=== PATIENT | female | born 1945 | race Caucasian/White ===

== ENCOUNTER 2017-10-23 22:13 | Inpatient (IN) | payer OTHER ==
[~2017-10-23] VITALS: Ht 170.2 cm; Wt 69.9 kg
[2017-10-23 22:55] LABS: Basophils # (auto) 0 uL; Eosinophils # (auto) 0 uL; Eosinophils % (auto) 0.1 % (0.0-7.0); Lymphocytes # (auto) 0.9 uL; Monocytes # (auto) 0.3 uL; Neutrophils # (auto) 11.3 uL; Red Cell Distribution Width 15.8 % (11.8-14.3); White Blood Cell 12.6 10^3/uL (4.4-10.8)
[2017-10-23 22:57] LABS: Basophils % (auto) 0.3 % (0.0-2.0); Hematocrit 47.5 % (36.0-46.0); Hemoglobin 15.4 g/dL (12.2-16.2); Mean Corpuscular Hemoglobin 26.6 pg (28.0-32.0); Mean Corpuscular Hgb Conc. 32.5 g/dL (32.0-36.0); Mean Corpuscular Volume 81.8 fL (80.0-100.0); Monocytes % (auto) 2.5 % (0.0-12.0); Neutrophils % (auto) 90.1 % (37.0-80.0); Platelet Count (auto) 336 10^3/uL (140-450); Red Blood Cells 5.81 10^6/uL (4.0-5.20)
[2017-10-23 23:28] LABS: Albumin 3.9 g/dL (3.4-5.0); BUN/Creatinine Ratio 13.5; Bilirubin, Total 0.3 mg/dL (0.2-1.0); Calcium 9.4 mg/dL (8.5-10.1); Potassium 4.1 mmol/L (3.5-5.1); Total Protein 7.3 g/dL (6.4-8.2)
[2017-10-24] MEDS ORDERED: NITROGLYCERIN 0.4 MG SL TAB SL ONE (00:15)
[2017-10-24] MEDS ORDERED: MORPHINE SULFATE 8mg/ml INJ SDV IV ONE ×2 (00:15→02:30)
[2017-10-24] MEDS ORDERED: ASPirin-EC 325mg tab PO ONE (00:15)
[2017-10-24] MEDS ORDERED: MORPHINE SULFATE 4 MG/ML SYR/VIAL ONE ×2 (00:17→02:23)
[2017-10-24] MEDS ORDERED: ONDANSETRON HCL 4 MG/2 ML VIAL ONE (00:19)
[2017-10-24] MEDS ORDERED: MORPHINE SULFATE 8mg/ml INJ SDV IV PRN ×2 (03:30)
[2017-10-24] MEDS ORDERED: HYDROcodone-ACET 5/325MG TAB PO PRN (03:30)
[2017-10-24] MEDS ORDERED: NITROGLYCERIN 0.4 MG SL TAB SL PRN (03:30)
[2017-10-24] MEDS ORDERED: LACTULOSE 20Gm/30ML SOLN PO PRN (03:30)
[2017-10-24] MEDS ORDERED: ONDANSETRON HCL 4 MG/2 ML VIAL IV PRN (03:30)
[2017-10-24] MEDS ORDERED: ACETAMINOPHEN 500 MG TAB PO PRN (03:30)
[2017-10-24] MEDS ORDERED: ENOXAPARIN SOD 80 MG/0.8ML SYRINGE SC ONE (05:00)
[2017-10-24 06:35] VITALS: BP 127/87
[2017-10-24 08:00] VITALS: BP 131/81
[2017-10-24] MEDS: MORPHINE SULFATE 4 MG/ML SYR/VIAL IV PRN ×2 (09:02→12:42)
[2017-10-24] MEDS: ASPirin 81 mg TAB PO SCH (09:56)
[2017-10-24] MEDS: METOPROLOL TARTRATE 25 MG TAB PO SCH ×2 (09:56→20:59)
[2017-10-24 12:00] VITALS: BP 134/83
[2017-10-24] MEDS: methylPREDNISolone SOD SUCC 125 MG/2 ML VL IV SCH ×2 (12:00→21:01)
[2017-10-24] MEDS ORDERED: cefTRIAXone 1GM/10ml IVPUSH 10 ML IV ONE (12:00)
[2017-10-24 12:09] LABS: Cholesterol 177 mg/dL (< 200); HDL Cholesterol 58 mg/dL (40-59); LDL Cholesterol 106 mg/dL (< 100); Triglycerides 72 mg/dL (< 150)
[2017-10-24] MEDS ORDERED: IOHEXOL 350 MG/ML 100ML IJ ONE ×2 (12:44→14:40)
[2017-10-24] MEDS ORDERED: LIDOCAINE 2%HCL (LOCAL ANESTH.) INJ 20ML MDV ONE (12:44)
[2017-10-24] MEDS: IPRATROPIUM BROM 0.5 MG/2.5ML INH SOL NEB SCH ×3 (13:06→22:41)
[2017-10-24] MEDS: ALBUTEROL SULF 2.5 MG/0.5ML(0.5%) NEB SOLN NEB SCH ×3 (13:06→22:41)
[2017-10-24 13:39] VITALS: BP 134/83
[2017-10-24] MEDS ORDERED: ANGIOMAX 250 MG VIAL IV ONE (14:29)
[2017-10-24] MEDS ORDERED: SODIUM CHL 0.9% 50 ML ONE ×2 (14:30→14:45)
[2017-10-24] MEDS ORDERED: fentaNYL CITRATE 100 MCG/2 ML VL ONE (14:30)
[2017-10-24] MEDS ORDERED: MIDAZOLAM HCL 1MG/1ML-2 ML VIAL ONE (14:30)
[2017-10-24] MEDS ORDERED: PRASUGREL HCL 10 MG TAB ONE (14:50)
[2017-10-24 15:50] VITALS: BP 119/73
[2017-10-24] MEDS ORDERED: ENOXAPARIN SOD 80 MG/0.8ML SYRINGE SC SCH (18:00)
[2017-10-24 19:43] VITALS: BP 116/73
[2017-10-24] MEDS ORDERED: ATORVASTATIN 20 MG TAB PO SCH (22:00)
[2017-10-24] MEDS: BUDESONIDE (INHALATION) 0.5 MG/2 ML NEB NEB SCH (22:41)
[2017-10-25] VITALS (8 sets, daily range): BP systolic 82–100; BP diastolic 54–68
[2017-10-25] MEDS: IPRATROPIUM BROM 0.5 MG/2.5ML INH SOL NEB SCH ×4 (02:59→14:32)
[2017-10-25] MEDS: ALBUTEROL SULF 2.5 MG/0.5ML(0.5%) NEB SOLN NEB SCH ×4 (02:59→14:32)
[2017-10-25] MEDS ORDERED: SODIUM CHLORIDE 0.9% 1,000 ML IV ONE (09:00)
[2017-10-25] MEDS ORDERED: SODIUM CHLORIDE 0.9% 1,000 ML IV SCH (09:00)
[2017-10-25] MEDS ORDERED: cefTRIAXone 1GM/10ml IVPUSH 10 ML IV SCH (09:00)
[2017-10-25 09:26] LABS: Basophils # (auto) 0 uL; Basophils % (auto) 0.1 % (0.0-2.0); Eosinophils # (auto) 0 uL; Hematocrit 46.2 % (36.0-46.0); Hemoglobin 14.9 g/dL (12.2-16.2); Lymphocytes # (auto) 0.7 uL; Lymphocytes % (auto) 3.7 % (10.0-50.0); Mean Corpuscular Hemoglobin 26.2 pg (28.0-32.0); Mean Corpuscular Hgb Conc. 32.3 g/dL (32.0-36.0); Mean Corpuscular Volume 80.9 fL (80.0-100.0); Monocytes # (auto) 0.4 uL; Neutrophils # (auto) 16.8 uL; Neutrophils % (auto) 94.2 % (37.0-80.0); Nucleated Red Blood Cells % 0.1 %; Platelet Count (auto) 357 10^3/uL (140-450); Red Blood Cells 5.71 10^6/uL (4.0-5.20); Red Cell Distribution Width 15.2 % (11.8-14.3); White Blood Cell 17.9 10^3/uL (4.4-10.8)
[2017-10-25 09:51] LABS: Albumin 3.3 g/dL (3.4-5.0); BUN/Creatinine Ratio 20.1; Bilirubin, Total 0.4 mg/dL (0.2-1.0); Calcium 9.5 mg/dL (8.5-10.1); Total Protein 6.7 g/dL (6.4-8.2)
[2017-10-25] MEDS: methylPREDNISolone SOD SUCC 125 MG/2 ML VL IV SCH (09:56)
[2017-10-25] MEDS: ASPirin 81 mg TAB PO SCH (09:56)
[2017-10-25] MEDS ORDERED: PRASUGREL HCL 10 MG TAB PO SCH (10:00)
[2017-10-25] MEDS: BUDESONIDE (INHALATION) 0.5 MG/2 ML NEB NEB SCH (10:24)
== END 2017-10-25 15:37 | disposition home or self-care (01) | DRG 246 ==
LOC: EDBD 22:13 → ER 22:23 → TELE 22:24 → DOU IN ICU 10-24 06:07
PROVIDERS: ADMIT Nurse Practitioner Family; ATTEND Nurse Practitioner Family
PROC: 027034Z Dilation of Coronary Artery, One Artery with Drug-eluting Intraluminal Device, Percutaneous Approach (ICD-10-PCS; principal; 2017-10-24)
PROC: 4A023N7 Measurement of Cardiac Sampling and Pressure, Left Heart, Percutaneous Approach (ICD-10-PCS; 2017-10-24)
PROC: B2111ZZ Fluoroscopy of Multiple Coronary Arteries using Low Osmolar Contrast (ICD-10-PCS; 2017-10-24)
PROC: B2151ZZ Fluoroscopy of Left Heart using Low Osmolar Contrast (ICD-10-PCS; 2017-10-24)
DX: I21.4 Non-ST elevation (NSTEMI) myocardial infarction (principal); N17.0 Acute kidney failure with tubular necrosis; J44.0 Chronic obstructive pulmonary disease with (acute) lower respiratory infection; J44.1 Chronic obstructive pulmonary disease with (acute) exacerbation; I11.9 Hypertensive heart disease without heart failure; J20.9 Acute bronchitis, unspecified; E03.9 Hypothyroidism, unspecified; E78.00 Pure hypercholesterolemia, unspecified; F17.200 Nicotine dependence, unspecified, uncomplicated; Z95.5 Presence of coronary angioplasty implant and graft; Z83.49 Family history of other endocrine, nutritional and metabolic diseases; Z88.1 Allergy status to other antibiotic agents; Z88.8 Allergy status to other drugs, medicaments and biological substances; Z71.6 Tobacco abuse counseling; Z79.899 Other long term (current) drug therapy
CPT/HCPCS: 36415; 71045; 80053; 80061; 82550; 84443; 84484; 85025; 85379; 85652; 87081; 92928; 93005; 93458; 94640; 96372; 96374; 96375; 97163; 99152; C1874; J2250; J2405

== ENCOUNTER 2019-12-31 05:35 | Inpatient (IN) | payer OTHER ==
[~2019-12-31] VITALS: Ht 167.6 cm; Wt 80.0 kg
[2019-12-31 07:54] LABS: Basophils # (auto) 0.1 10 ^3/uL (0-0.2); Basophils % (auto) 0.9 % (0.0-2.0); Eosinophils # (auto) 0.2 10 ^3/uL (0-0.8); Monocytes # (auto) 0.6 10 ^3/uL (0-1.3); Neutrophils # (auto) 8.3 10 ^3/uL (1.6-8.6); White Blood Cell 10.3 10^3/uL (4.4-10.8)
[2019-12-31 07:56] LABS: Eosinophils % (auto) 1.7 % (0.0-7.0); Hematocrit 55.5 % (36.0-46.0); Hemoglobin 18.3 g/dL (12.2-16.2); Lymphocytes # (auto) 1.1 10 ^3/uL (0.4-5.4); Lymphocytes % (auto) 10.5 % (10.0-50.0); Mean Corpuscular Hemoglobin 27.7 pg (28.0-32.0); Mean Corpuscular Hgb Conc. 32.9 g/dL (32.0-36.0); Mean Corpuscular Volume 84.4 fL (80.0-100.0); Monocytes % (auto) 6.1 % (0.0-12.0); Neutrophils % (auto) 80.8 % (37.0-80.0); Platelet Count (auto) 335 10^3/uL (140-450); Red Blood Cells 6.58 10^6/uL (4.0-5.20); Red Cell Distribution Width 17.1 % (11.8-14.3)
[2019-12-31 08:12] LABS: Albumin 3.5 g/dL (3.4-5.0); BUN/Creatinine Ratio 16.3; Calcium 8.6 mg/dL (8.5-10.1)
[2019-12-31 08:17] LABS: Bilirubin, Total 0.5 mg/dL (0.2-1.0); Total Protein 7.1 g/dL (6.4-8.2)
[2019-12-31 12:28] LABS: INR 1.01 (0.9-1.15); Partial Thromboplastin Time 28.5 sec (23.0-31.2)
[2019-12-31] MEDS ORDERED: ZINC SULFATE 220mg CAP or TAB PO ONE (13:15)
[2019-12-31] MEDS ORDERED: cefTRIAXone 1GM/50ML D5W 50 ML IV ONE (13:15)
[2019-12-31] MEDS ORDERED: DOXYCYCLINE 100MG/250ML 250 ML IV ONE (13:15)
[2019-12-31] MEDS ORDERED: ASCORBIC ACID 500 MG TAB PO ONE (13:15)
[2019-12-31] MEDS ORDERED: NITROGLYCERIN 0.4 MG SL TAB SL PRN ×2 (15:15→16:15)
[2019-12-31] MEDS ORDERED: MORPHINE SULF INJ 2 MG/ML SYRINGE 1ML IV PRN ×3 (15:15→16:15)
[2019-12-31] MEDS ORDERED: SODIUM CHLORIDE 0.9% 1,000 ML IV SCH (15:51)
[2019-12-31] MEDS ORDERED: TEMAZEPAM 15 MG CAP PO PRN (16:00)
[2019-12-31] MEDS ORDERED: traMADol HCL 50 MG TAB PO PRN (16:00)
[2019-12-31] MEDS ORDERED: ONDANSETRON HCL 4 MG/2 ML VIAL IV PRN (16:00)
[2019-12-31] MEDS ORDERED: ACETAMINOPHEN 500 MG TAB PO PRN ×2 (16:00)
[2019-12-31] MEDS ORDERED: ALBUTEROL SULF 2.5 MG/0.5ML(0.5%) NEB SOLN NEB PRN (16:00)
[2019-12-31] MEDS ORDERED: LEVOTHYROXINE SODIUM 25 MCG TAB PO ONE (16:00)
[2019-12-31] MEDS: levoFLOXacin 500MG 100 ML IV SCH (17:00)
[2019-12-31] MEDS: IPRATROPIUM BROM 0.5 MG/2.5ML INH SOL NEB SCH ×2 (18:00→23:58)
[2019-12-31] MEDS ORDERED: ALBUTEROL SULF 2.5 MG/0.5ML(0.5%) NEB SOLN NEB SCH (18:00)
[2019-12-31 18:53] VITALS: BP 148/88
--- NOTE | 2019-12-31 19:01 | NUR ---
PATIENT ARRIVED TO UNIT ON 2LNC. NO S/S OF DISTRESS NOTED AT THIS TIME. PATIENT ON TELE MONITOR 18 RUNNING SINUS TACHYCARDIA.
--- NOTE | 2019-12-31 19:25 | NUR ---
endorsed care to SARAH estrada.
--- NOTE | 2019-12-31 19:25 | NUR ---
Telemetry admit from ER HANDLER,RONN admitted to Telemetry unit after SBAR received. Patient oriented to EMILY POWELL RN primary RN, unit, room, bed, and unit policies regarding patient care and visiting hours. Patient now on continuous telemetry monitoring, tele box # [id number] and telemetry reading on arrival to unit is SR 93BPM. Patient placed on bedside oxygen, weighed by bedscale and encouraged to call if they need something. All questions and concerns addressed, patient verbalized understanding. Addendum: 12/31/19 at 2054 by EMILY POWELL RN RN INCORRECT TELE NUMBER. TELE NUMBER [id number]
--- NOTE | 2019-12-31 19:25 | NUR ---
Telemetry admit from ER HANDLER,RONN admitted to Telemetry unit after SBAR received. Patient oriented to EMILY POWELL, RN primary RN, unit, room, bed, and unit policies regarding patient care and visiting hours. Patient now on continuous telemetry monitoring, tele box # [id number] telemetry reading on arrival to unit is SR 93BPM. Patient placed on bedside oxygen, weighed by bedscale and encouraged to call if they need something. All questions and concerns addressed, patient verbalized understanding.
[2019-12-31 20:00] VITALS: BP 148/100
[2019-12-31] MEDS ORDERED: [UNRECOGNIZED DRUG - CODE] PO (20:52)
[2019-12-31] MEDS ORDERED: THYR60TA PO (20:52)
[2019-12-31] MEDS: ATORVASTATIN 20 MG TAB PO SCH (21:25)
[2019-12-31] MEDS: METOPROLOL TARTRATE 25 MG TAB PO SCH (21:27)
--- NOTE | 2019-12-31 21:57 | NUR ---
patient reports sob and requesting breathing treatment. oxygen 95% on 3 l. RR 21 bilateral chest rise and fall, 93bpm, bp 150/101. RT notified.
[2019-12-31 22:00] VITALS: BP 156/94
[2019-12-31] MEDS: ALBUTEROL SULF HFA 90MCG INH 200DOSE IN SCH (22:00)
[2019-12-31] MEDS: BUDESONIDE (INHALATION) 180 MCG IH IN SCH (22:00)
[2019-12-31] MEDS ORDERED: IPRATROPIUM BROM 0.5 MG/2.5ML INH SOL ONE (22:16)
[2019-12-31] MEDS ORDERED: ALBUTEROL SULF 2.5 MG/0.5ML(0.5%) NEB SOLN ONE (22:16)
--- NOTE | 2019-12-31 22:29 | NUR ---
RT with patient. per RT breathing treatment initiated and unable to enter room until 5200
[2019-12-31 23:51] LABS: CRP High Sensitivity 0.09 mg/dL (< 0.3)
[2020-01-01] MEDS: ALBUTEROL SULF 2.5 MG/0.5ML(0.5%) NEB SOLN NEB SCH ×5 (04:49→23:57)
[2020-01-01] MEDS: IPRATROPIUM BROM 0.5 MG/2.5ML INH SOL NEB SCH ×4 (04:49→23:57)
[2020-01-01 05:00] VITALS: BP 139/85
[2020-01-01] MEDS: ALBUTEROL SULF HFA 90MCG INH 200DOSE IN SCH (06:00)
[2020-01-01] MEDS: BUDESONIDE (INHALATION) 180 MCG IH IN SCH (06:09)
[2020-01-01] MEDS: THYROID 60 MG TAB PO SCH (06:12)
--- NOTE | 2020-01-01 06:12 | NUR ---
Respiratory note: At bedside for initial assessment. HR 80, RR 20, SPO2 94% on 2lpm nasal cannula. Breath sounds dim t/o. Medneb tx was already administered by [facility] shift RT at 0449. Pt appears to be resting in bed comfortably with no s/s of distress. Inhaler txs held pending testing results for COVID-19. Will continue to monitor.
[2020-01-01] MEDS ORDERED: THYROID 60 MG TAB PO SCH (07:00)
[2020-01-01] MEDS ORDERED: LEVOTHYROXINE SODIUM 25 MCG TAB PO SCH (07:00)
--- NOTE | 2020-01-01 07:02 | NUR ---
Report given to dayshift RN patient denies sob distress or pain.
--- NOTE | 2020-01-01 07:20 | NUR ---
ABG drawn as ordered, results to follow
[2020-01-01 07:39] LABS: Albumin 3.6 g/dL (3.4-5.0); Potassium 4.1 mmol/L (3.5-5.1)
[2020-01-01 07:43] LABS: BUN/Creatinine Ratio 11.7; Bilirubin, Total 0.8 mg/dL (0.2-1.0); Total Protein 6.9 g/dL (6.4-8.2)
[2020-01-01 09:00] VITALS: BP 139/79
[2020-01-01] MEDS: levoFLOXacin 500MG 100 ML IV SCH (09:20)
[2020-01-01] MEDS: ASPirin 81 mg TAB PO SCH (09:20)
[2020-01-01] MEDS: NITROGLYCERIN 0.2MG/HR TOPICAL PATCH TD SCH (09:21)
[2020-01-01] MEDS: ENOXAPARIN SOD 40 MG/0.4 ML SYRINGE SC SCH (09:21)
[2020-01-01] MEDS: METOPROLOL TARTRATE 25 MG TAB PO SCH ×2 (09:21→21:59)
[2020-01-01] MEDS ORDERED: ZINC SULFATE 220mg CAP or TAB PO SCH (10:00)
[2020-01-01] MEDS ORDERED: ASCORBIC ACID 1,000 MG TAB PO SCH (10:00)
[2020-01-01] MEDS ORDERED: CHOLECALCIFEROL (VITD3) 2,000 UNIT CAP PO SCH (10:00)
[2020-01-01] MEDS ORDERED: DexAMETHasone SOD PHOS 10MG/1ML VIAL INJ IV SCH (10:00)
[2020-01-01 13:00] VITALS: BP 124/83
[2020-01-01] MEDS ORDERED: SODIUM CHLORIDE 0.9 % NEB SOLN 3ML NEB ONE (13:50)
--- NOTE | 2020-01-01 15:21 | NUR ---
RECEIVED PATIENT TO THE FLOOR. PATIENT ALERT AND ORIENTED. BED LOCKED IN LOWEST POSITION WITH TWO SIDE RAILS UP AND CALL LIGHT IN REACH. INSTRUCTED THE PATIENT ON THE PLAN OF CARE AND TO CALL IF ANYTHING IS NEEDED. WILL CONTINUE TO MONITOR.
[2020-01-01] MEDS ORDERED: ACETAMINOPHEN 500 MG TAB PO PRN (15:30)
[2020-01-01 17:00] VITALS: BP 120/81
[2020-01-01] MEDS: ATORVASTATIN 20 MG TAB PO SCH (21:59)
[2020-01-01 22:00] VITALS: BP 119/73
[2020-01-02] MEDS: THYROID 60 MG TAB PO SCH (05:39)
[2020-01-02] MEDS: ALBUTEROL SULF 2.5 MG/0.5ML(0.5%) NEB SOLN NEB SCH ×4 (06:15→23:27)
[2020-01-02] MEDS: IPRATROPIUM BROM 0.5 MG/2.5ML INH SOL NEB SCH ×4 (06:15→23:27)
[2020-01-02 06:23] VITALS: BP 118/65
--- NOTE | 2020-01-02 07:25 | NUR ---
Opening Shift Note Assumed care of patient, awake and alert. No S/S of distress/SOB or pain. Updated on POC and instructed to call for assistance PRN, patient verbalized understanding. Bed locked in lowest position, side rails up x2, call light within reach. Will continue to monitor for changes Q1hr and PRN.
[2020-01-02] MEDS ORDERED: ADENOSINE 68 MG in GIVE UN-DILUTED 0 ML IV STA (08:26)
[2020-01-02 09:00] VITALS: BP 125/70
[2020-01-02] MEDS: NITROGLYCERIN 0.2MG/HR TOPICAL PATCH TD SCH (09:42)
[2020-01-02] MEDS: ENOXAPARIN SOD 40 MG/0.4 ML SYRINGE SC SCH (09:43)
[2020-01-02] MEDS: ASPirin 81 mg TAB PO SCH (09:44)
[2020-01-02] MEDS: METOPROLOL TARTRATE 25 MG TAB PO SCH ×2 (09:44→22:48)
[2020-01-02] MEDS: levoFLOXacin 500MG 100 ML IV SCH (09:45)
[2020-01-02 12:59] LABS: Urine Bacteria NONE SEEN /hpf (None Seen); Urine Blood Negative /uL (Negative); Urine Specific Gravity 1.009 (1.001-1.035); Urine WBC 1 /hpf (0 - 5)
[2020-01-02 13:00] VITALS: BP 120/84
[2020-01-02 17:00] VITALS: BP 125/81
--- NOTE | 2020-01-02 19:30 | NUR ---
Opening Shift Note Assumed care of patient, awake and alert. No S/S of distress/SOB or pain. Instructed on POC and to call for assist PRN, will continue to monitor for changes Q1hr and PRN.
[2020-01-02 22:00] VITALS: BP 123/74
[2020-01-02] MEDS: ATORVASTATIN 20 MG TAB PO SCH (22:47)
[2020-01-03 05:00] VITALS: BP 131/77
[2020-01-03] MEDS: ALBUTEROL SULF 2.5 MG/0.5ML(0.5%) NEB SOLN NEB SCH ×2 (06:18→12:12)
[2020-01-03] MEDS: IPRATROPIUM BROM 0.5 MG/2.5ML INH SOL NEB SCH ×2 (06:18→12:12)
[2020-01-03] MEDS: THYROID 60 MG TAB PO SCH (06:37)
--- NOTE | 2020-01-03 07:20 | NUR ---
Opening Shift Note Assumed care of patient, awake and alert. No S/S of distress/SOB or pain. Updated on POC and instructed to call for assistance PRN, patient verbalized understanding. Bed locked in lowest position, side rails up x2, call light within reach. Fall precautions in place. Will continue to monitor for changes Q1hr and PRN.
[2020-01-03 08:00] VITALS: BP 130/81
[2020-01-03] MEDS: ASPirin 81 mg TAB PO SCH (09:26)
[2020-01-03] MEDS: METOPROLOL TARTRATE 25 MG TAB PO SCH (09:27)
[2020-01-03] MEDS: levoFLOXacin 500MG 100 ML IV SCH (09:27)
[2020-01-03] MEDS: ENOXAPARIN SOD 40 MG/0.4 ML SYRINGE SC SCH (09:29)
[2020-01-03] MEDS: NITROGLYCERIN 0.2MG/HR TOPICAL PATCH TD SCH (09:29)
--- NOTE | 2020-01-03 10:16 | NUR ---
assessment Patient is a 74 year old female who is alert and oriented. Patients cognitive abilities are intact. Prior to admission patient lived home with family and functioned independently. Patient informed me she is able to care for her own ADLs. Per patient she will return home to her prior living arrangements post discharge and family will transport her home. Patient has oxygen, nebulizer, and a cane for home use. Per patient she has a cane, but does not need to use it. Patients PCP is Dr Agustin. Per patient she called 911 due to chest pain. Patient informed me she feels much better and wants to return home as soon as possible. I have offered patient various discharge options due to recent hospitalization such as private pay caregivers, home health, and placement. Patient informed me she has no needs and is adamant she will return home as planned. Patient has no post discharge needs identified. I informed patient she has a right to speak to a social services director regarding all care. I informed patient she has a right to participate in any and all discharge planning. Patient has a POA and advanced directive. Patient verbalized understanding and agreed to discharge plan home. Addendum: 01/03/20 at 1427 by Dari COLE Amended: Links added.
[2020-01-03 11:33] VITALS: BP 130/81
[2020-01-03] MEDS ORDERED: OPTISON 3ml Vial for INJ IV ONE (11:52)
[2020-01-03 12:00] VITALS: BP 125/75
--- NOTE | 2020-01-03 13:27 | NUR ---
DISCHARGE HOME Discharge instructions given as ordered. Encourage to follow up with PMD as instructed. All questions and concerns addressed. Patient verbalized understanding. Medication reconciliation form completed and copy given to patient. IV removed with catheter intact, pressure dressing applied. Telemetry unit returned to ICU. Patient taken to taxi via wheelchair with all personal belongings, accompanied by staff. No distress noted at time of departure.
== END 2020-01-03 13:27 | disposition home or self-care (01) | DRG 193 ==
LOC: EDBD 05:35 → ER 05:35 → TELE 05:36 → TELE-EAST 19:00 → TELE-CENTR 01-01 15:21
PROVIDERS: ADMIT Internal Medicine; ATTEND Internal Medicine
DX: J18.9 Pneumonia, unspecified organism (principal); N17.0 Acute kidney failure with tubular necrosis; I50.43 Acute on chronic combined systolic (congestive) and diastolic (congestive) heart failure; J44.0 Chronic obstructive pulmonary disease with (acute) lower respiratory infection; I13.0 Hypertensive heart and chronic kidney disease with heart failure and stage 1 through stage 4 chronic kidney disease, or unspecified chronic kidney disease; J98.11 Atelectasis; I25.110 Atherosclerotic heart disease of native coronary artery with unstable angina pectoris; E66.9 Obesity, unspecified; E03.9 Hypothyroidism, unspecified; E78.5 Hyperlipidemia, unspecified; F17.210 Nicotine dependence, cigarettes, uncomplicated; D75.1 Secondary polycythemia; Z20.828 Contact with and (suspected) exposure to other viral communicable diseases; N18.9 Chronic kidney disease, unspecified; Z95.5 Presence of coronary angioplasty implant and graft; Z88.1 Allergy status to other antibiotic agents; Z88.8 Allergy status to other drugs, medicaments and biological substances
CPT/HCPCS: 36415; 36600; 71045; 80053; 81001; 82550; 82728; 82805; 83605; 83735; 83880; 84443; 84484; 85025; 85379; 85610; 85652; 85730; 86141; 87040; 87070; 87077; 87205; 93005; 93306; 94640; 96365; 96366; 96368; 99291; G0378; J0153; J0696; J1100; J1956; J3490; Q9956

== ENCOUNTER 2020-01-25 00:08 | Inpatient (IN) | payer OTHER ==
[~2020-01-25] VITALS: Ht 167.6 cm; Wt 75.2 kg
[~2020-01-25 00:08] MED LIST: THYR60TA PO; [UNRECOGNIZED DRUG - CODE] PO
[2020-01-25 00:57] LABS: Basophils # (auto) 0.1 10 ^3/uL (0-0.2); Basophils % (auto) 0.6 % (0.0-2.0); Eosinophils # (auto) 0.2 10 ^3/uL (0-0.8); Eosinophils % (auto) 1.5 % (0.0-7.0); Hematocrit 51.1 % (36.0-46.0); Hemoglobin 16.4 g/dL (12.2-16.2); Lymphocytes # (auto) 1.7 10 ^3/uL (0.4-5.4); Lymphocytes % (auto) 11.5 % (10.0-50.0); Mean Corpuscular Hemoglobin 27.5 pg (28.0-32.0); Mean Corpuscular Hgb Conc. 32.1 g/dL (32.0-36.0); Mean Corpuscular Volume 85.6 fL (80.0-100.0); Monocytes # (auto) 0.7 10 ^3/uL (0-1.3); Monocytes % (auto) 4.4 % (0.0-12.0); Neutrophils # (auto) 12.4 10 ^3/uL (1.6-8.6); Nucleated Red Blood Cells % 0.1 %; Platelet Count (auto) 323 10^3/uL (140-450); Red Blood Cells 5.96 10^6/uL (4.0-5.20); Red Cell Distribution Width 16.7 % (11.8-14.3); White Blood Cell 15.1 10^3/uL (4.4-10.8)
[2020-01-25 01:16] LABS: Albumin 3.2 g/dL (3.4-5.0); BUN/Creatinine Ratio 16.4; Calcium 8.2 mg/dL (8.5-10.1); Potassium 3.9 mmol/L (3.5-5.1)
[2020-01-25 01:23] LABS: Bilirubin, Total 0.4 mg/dL (0.2-1.0); Total Protein 6.4 g/dL (6.4-8.2)
[2020-01-25 02:19] LABS: INR 0.98 (0.9-1.15); Partial Thromboplastin Time 25.6 sec (23.0-31.2)
[2020-01-25] MEDS ORDERED: ACETAMINOPHEN 325 MG TAB PO PRN (07:00)
[2020-01-25] MEDS ORDERED: ONDANSETRON HCL 4 MG/2 ML VIAL IV PRN (07:00)
[2020-01-25] MEDS ORDERED: NITROGLYCERIN 0.4 MG SL TAB SL PRN (07:00)
[2020-01-25] MEDS ORDERED: MORPHINE SULF INJ 2 MG/ML SYRINGE 1ML IV PRN (07:00)
[2020-01-25] MEDS ORDERED: TEMAZEPAM 15 MG CAP PO PRN (07:00)
[2020-01-25] MEDS ORDERED: ENOXAPARIN SOD 100 MG/1 ML SYRINGE SC ONE (07:00)
[2020-01-25 08:40] VITALS: BP 116/63
[2020-01-25] MEDS: ASPirin 81 mg TAB PO SCH (10:40)
[2020-01-25] MEDS: FAMOTIDINE 20 MG TAB PO SCH ×2 (10:40→21:32)
[2020-01-25] MEDS: levoFLOXacin 500MG 100 ML IV SCH (10:41)
[2020-01-25] MEDS: THYROID 60 MG TAB PO SCH (10:41)
[2020-01-25 11:29] LABS: Urine Bacteria NONE SEEN /hpf (None Seen); Urine Blood Negative /uL (Negative); Urine Mucus FEW (None Seen); Urine Specific Gravity 1.018 (1.001-1.035); Urine WBC 2 /hpf (0 - 5)
[2020-01-25] MEDS: IPRATROPIUM BROM 0.5 MG/2.5ML INH SOL NEB SCH ×2 (11:46→18:40)
[2020-01-25] MEDS: ALBUTEROL SULF 2.5 MG/0.5ML(0.5%) NEB SOLN NEB SCH ×2 (11:46→18:40)
[2020-01-25] MEDS ORDERED: CLOPIDOGREL 300 MG TAB PO ONE (13:45)
[2020-01-25] MEDS ORDERED: FUROSEMIDE 40 MG/4 ML VIAL IV ONE (13:45)
[2020-01-25] MEDS ORDERED: ASPirin 81 mg TAB PO ONE (13:45)
[2020-01-25] MEDS ORDERED: LORazepam 2MG/ML-1ML VIAL IV ONE (17:00)
[2020-01-25 19:30] VITALS: BP 127/84
[2020-01-25] MEDS: ATORVASTATIN 20 MG TAB PO SCH (21:32)
[2020-01-26] VITALS (7 sets, daily range): BP systolic 114–150; BP diastolic 63–87
[2020-01-26] MEDS: ALBUTEROL SULF 2.5 MG/0.5ML(0.5%) NEB SOLN NEB SCH ×5 (00:36→22:01)
[2020-01-26] MEDS: IPRATROPIUM BROM 0.5 MG/2.5ML INH SOL NEB SCH ×5 (00:36→22:01)
[2020-01-26 06:09] LABS: Basophils # (auto) 0 10 ^3/uL (0-0.2); Basophils % (auto) 0.3 % (0.0-2.0); Eosinophils # (auto) 0.3 10 ^3/uL (0-0.8); Eosinophils % (auto) 3.5 % (0.0-7.0); Hematocrit 48.6 % (36.0-46.0); Hemoglobin 16.1 g/dL (12.2-16.2); Mean Corpuscular Hemoglobin 28.2 pg (28.0-32.0); Mean Corpuscular Hgb Conc. 33.1 g/dL (32.0-36.0); Mean Corpuscular Volume 85.1 fL (80.0-100.0); Monocytes # (auto) 0.6 10 ^3/uL (0-1.3); Monocytes % (auto) 6.9 % (0.0-12.0); Neutrophils # (auto) 7.2 10 ^3/uL (1.6-8.6); Neutrophils % (auto) 78.3 % (37.0-80.0); Platelet Count (auto) 288 10^3/uL (140-450); Red Blood Cells 5.71 10^6/uL (4.0-5.20); Red Cell Distribution Width 16.4 % (11.8-14.3); White Blood Cell 9.2 10^3/uL (4.4-10.8)
[2020-01-26 06:30] LABS: BUN/Creatinine Ratio 17.1; Calcium 8.7 mg/dL (8.5-10.1); Potassium 3.8 mmol/L (3.5-5.1)
[2020-01-26] MEDS ORDERED: FUROSEMIDE 40 MG/4 ML VIAL IV SCH (10:00)
[2020-01-26] MEDS: THYROID 60 MG TAB PO SCH (10:08)
[2020-01-26] MEDS: levoFLOXacin 500MG 100 ML IV SCH (10:08)
[2020-01-26] MEDS: ASPirin 81 mg TAB PO SCH (10:08)
[2020-01-26] MEDS: FAMOTIDINE 20 MG TAB PO SCH ×2 (10:08→21:34)
[2020-01-26] MEDS ORDERED: CLOPIDOGREL 300 MG TAB PO ONE (13:00)
[2020-01-26] MEDS ORDERED: ALBUTEROL SULF 2.5 MG/0.5ML(0.5%) NEB SOLN NEB PRN (17:00)
[2020-01-26] MEDS ORDERED: IPRATROPIUM BROM 0.5 MG/2.5ML INH SOL NEB PRN (17:00)
[2020-01-26] MEDS: CARVEDILOL 3.125 MG TAB PO SCH (21:33)
[2020-01-26] MEDS: SACUBITRIL-VALSARTAN 24mg/26mg TAB PO SCH (21:34)
[2020-01-26] MEDS: ATORVASTATIN 20 MG TAB PO SCH (21:34)
[2020-01-27] MEDS: IPRATROPIUM BROM 0.5 MG/2.5ML INH SOL NEB SCH ×7 (02:28→22:09)
[2020-01-27] MEDS: ALBUTEROL SULF 2.5 MG/0.5ML(0.5%) NEB SOLN NEB SCH ×7 (02:28→22:08)
[2020-01-27 05:30] VITALS: BP 127/87
[2020-01-27 05:53] LABS: Eosinophils # (auto) 0.4 10 ^3/uL (0-0.8); Hematocrit 52.8 % (36.0-46.0); Hemoglobin 17.3 g/dL (12.2-16.2); Lymphocytes # (auto) 1.3 10 ^3/uL (0.4-5.4); Mean Corpuscular Hgb Conc. 32.8 g/dL (32.0-36.0); Monocytes # (auto) 0.8 10 ^3/uL (0-1.3); Neutrophils # (auto) 7.8 10 ^3/uL (1.6-8.6)
[2020-01-27 05:56] LABS: Basophils # (auto) 0 10 ^3/uL (0-0.2); Basophils % (auto) 0.4 % (0.0-2.0); Eosinophils % (auto) 4.2 % (0.0-7.0); Lymphocytes % (auto) 12.3 % (10.0-50.0); Mean Corpuscular Hemoglobin 27.7 pg (28.0-32.0); Mean Corpuscular Volume 84.6 fL (80.0-100.0); Monocytes % (auto) 7.9 % (0.0-12.0); Neutrophils % (auto) 75.2 % (37.0-80.0); Nucleated Red Blood Cells % 0.1 %; Platelet Count (auto) 313 10^3/uL (140-450); Red Blood Cells 6.24 10^6/uL (4.0-5.20); Red Cell Distribution Width 16.2 % (11.8-14.3); White Blood Cell 10.4 10^3/uL (4.4-10.8)
[2020-01-27 06:09] LABS: INR 0.99 (0.9-1.15); Partial Thromboplastin Time 27.5 sec (23.0-31.2)
[2020-01-27 06:16] LABS: Potassium 4.6 mmol/L (3.5-5.1)
[2020-01-27 06:46] LABS: BUN/Creatinine Ratio 15.9; Calcium 9.5 mg/dL (8.5-10.1)
[2020-01-27] MEDS ORDERED: IODIXANOL 320MG/ML 100ML BTL IV ONE (07:46)
[2020-01-27] MEDS ORDERED: LIDOCAINE 2%HCL (LOCAL ANESTH.) INJ 20ML MDV ONE (08:18)
[2020-01-27] MEDS ORDERED: IOHEXOL 350 MG/ML 100ML IJ ONE ×2 (08:18→10:06)
[2020-01-27 09:00] VITALS: BP 135/88
[2020-01-27] MEDS ORDERED: ANGIOMAX 250 MG VIAL IV ONE (09:09)
[2020-01-27] MEDS ORDERED: fentaNYL CITRATE 100 MCG/2 ML VL ONE (09:10)
[2020-01-27] MEDS ORDERED: VERAPAMIL 2.5MG/ML INJ 2ML VIAL IV ONE (09:10)
[2020-01-27] MEDS ORDERED: MIDAZOLAM HCL 1MG/1ML-2 ML VIAL ONE (09:10)
[2020-01-27] MEDS ORDERED: HEPARIN SODIUM (PORCINE) 5000 UNITS/ML 1ML VIAL ONE (09:10)
[2020-01-27] MEDS ORDERED: SODIUM CHL 0.9% 0 ML ONE (09:10)
[2020-01-27 13:00] VITALS: BP 117/71
[2020-01-27] MEDS: levoFLOXacin 500MG 100 ML IV SCH (13:26)
[2020-01-27] MEDS: ASPirin 81 mg TAB PO SCH (13:27)
[2020-01-27] MEDS: SACUBITRIL-VALSARTAN 24mg/26mg TAB PO SCH ×2 (13:27→21:47)
[2020-01-27] MEDS: CARVEDILOL 3.125 MG TAB PO SCH ×2 (13:27→21:47)
[2020-01-27] MEDS: FAMOTIDINE 20 MG TAB PO SCH ×2 (13:28→21:48)
[2020-01-27] MEDS: CLOPIDOGREL BISULFATE 75 MG TAB PO SCH (13:28)
[2020-01-27] MEDS: THYROID 60 MG TAB PO SCH (13:28)
[2020-01-27 17:00] VITALS: BP 120/82
[2020-01-27] MEDS: ATORVASTATIN 20 MG TAB PO SCH (21:48)
[2020-01-27 22:00] VITALS: BP 102/75
[2020-01-28] MEDS: IPRATROPIUM BROM 0.5 MG/2.5ML INH SOL NEB SCH ×4 (01:57→10:59)
[2020-01-28] MEDS: ALBUTEROL SULF 2.5 MG/0.5ML(0.5%) NEB SOLN NEB SCH ×4 (01:57→10:59)
[2020-01-28 05:17] VITALS: BP 110/67
[2020-01-28 05:59] LABS: BUN/Creatinine Ratio 16.5; Calcium 9.2 mg/dL (8.5-10.1); Potassium 4.1 mmol/L (3.5-5.1)
[2020-01-28 09:00] VITALS: BP 132/64
[2020-01-28] MEDS ORDERED: SACU1TAB PO (09:03)
[2020-01-28] MEDS ORDERED: ATOR20TA50 PO (09:03)
[2020-01-28] MEDS ORDERED: CAR3125T PO (09:03)
[2020-01-28] MEDS ORDERED: ASPI-231 PO (09:05)
[2020-01-28] MEDS: ASPirin 81 mg TAB PO SCH (10:26)
[2020-01-28] MEDS: levoFLOXacin 500MG 100 ML IV SCH (10:26)
[2020-01-28] MEDS: THYROID 60 MG TAB PO SCH (10:26)
[2020-01-28] MEDS: FAMOTIDINE 20 MG TAB PO SCH (10:27)
[2020-01-28] MEDS: SACUBITRIL-VALSARTAN 24mg/26mg TAB PO SCH (10:27)
[2020-01-28] MEDS: CARVEDILOL 3.125 MG TAB PO SCH (10:27)
[2020-01-28] MEDS: CLOPIDOGREL BISULFATE 75 MG TAB PO SCH (10:27)
[2020-01-28] MEDS ORDERED: FURO40TA4 PO (13:42)
== END 2020-01-28 13:50 | disposition home or self-care (01) | DRG 177 ==
LOC: EDBD 00:08 → ER 00:10 → TELE 00:11 → TELE-CENTR 18:35
PROVIDERS: ADMIT Nurse Practitioner; ATTEND Internal Medicine Nephrology
PROC: 4A023N7 Measurement of Cardiac Sampling and Pressure, Left Heart, Percutaneous Approach (ICD-10-PCS; principal; 2020-01-27)
PROC: B2111ZZ Fluoroscopy of Multiple Coronary Arteries using Low Osmolar Contrast (ICD-10-PCS; 2020-01-27)
PROC: B2151ZZ Fluoroscopy of Left Heart using Low Osmolar Contrast (ICD-10-PCS; 2020-01-27)
DX: J15.6 Pneumonia due to other Gram-negative bacteria (principal); I21.A1 Myocardial infarction type 2; J96.21 Acute and chronic respiratory failure with hypoxia; I50.43 Acute on chronic combined systolic (congestive) and diastolic (congestive) heart failure; N17.0 Acute kidney failure with tubular necrosis; E44.0 Moderate protein-calorie malnutrition; I42.8 Other cardiomyopathies; J44.1 Chronic obstructive pulmonary disease with (acute) exacerbation; I11.0 Hypertensive heart disease with heart failure; D72.829 Elevated white blood cell count, unspecified; E03.9 Hypothyroidism, unspecified; D75.1 Secondary polycythemia; E78.5 Hyperlipidemia, unspecified; F17.210 Nicotine dependence, cigarettes, uncomplicated; I25.10 Atherosclerotic heart disease of native coronary artery without angina pectoris; I25.2 Old myocardial infarction; Z82.49 Family history of ischemic heart disease and other diseases of the circulatory system; Z82.5 Family history of asthma and other chronic lower respiratory diseases; Z87.01 Personal history of pneumonia (recurrent); Z90.710 Acquired absence of both cervix and uterus; Z95.5 Presence of coronary angioplasty implant and graft; Z99.81 Dependence on supplemental oxygen; Z68.26 Body mass index [BMI] 26.0-26.9, adult
CPT/HCPCS: 36415; 36600; 71045; 71250; 80048; 80053; 81001; 82805; 83605; 83880; 84439; 84443; 84484; 85025; 85379; 85610; 85730; 86850; 86900; 86901; 87081; 93005; 93458; 93970; 94640; 94644; 96365; 96375; 99152; 99291; G0378; J1956; J2250; Q9967

== ENCOUNTER 2020-03-05 10:19 | Emergency (ER) | payer OTHER ==
[~2020-03-05] VITALS: Ht 165.1 cm; Wt 72.6 kg
[~2020-03-05 10:19] MED LIST changes: +ATOR20TA50 PO; +CAR3125T PO; +SACU1TAB PO; -[UNRECOGNIZED DRUG - CODE] PO
[2020-03-05] MEDS ORDERED: FUROSEMIDE 20 MG/2 ML VIAL IV ONE (10:30)
[2020-03-05] MEDS ORDERED: ALBUTEROL SULF 2.5 MG/0.5ML(0.5%) NEB SOLN NEB ONE (10:30)
[2020-03-05] MEDS ORDERED: methylPREDNISolone SOD SUCC 125 MG/2 ML VL IV ONE (10:30)
[2020-03-05] MEDS ORDERED: IPRATROPIUM BROM 0.5 MG/2.5ML INH SOL NEB ONE (10:30)
[2020-03-05 11:05] LABS: Basophils # (auto) 0.1 10 ^3/uL (0-0.2); Basophils % (auto) 0.8 % (0.0-2.0); Eosinophils # (auto) 0.5 10 ^3/uL (0-0.8); Eosinophils % (auto) 6.3 % (0.0-7.0); Hematocrit 50.4 % (36.0-46.0); Hemoglobin 16.4 g/dL (12.2-16.2); Lymphocytes # (auto) 1.2 10 ^3/uL (0.4-5.4); Lymphocytes % (auto) 15.1 % (10.0-50.0); Mean Corpuscular Hemoglobin 27.7 pg (28.0-32.0); Mean Corpuscular Hgb Conc. 32.6 g/dL (32.0-36.0); Mean Corpuscular Volume 85.2 fL (80.0-100.0); Monocytes # (auto) 0.4 10 ^3/uL (0-1.3); Monocytes % (auto) 5.6 % (0.0-12.0); Neutrophils # (auto) 5.8 10 ^3/uL (1.6-8.6); Neutrophils % (auto) 72.2 % (37.0-80.0); Platelet Count (auto) 327 10^3/uL (140-450); Red Blood Cells 5.91 10^6/uL (4.0-5.20); Red Cell Distribution Width 14.7 % (11.8-14.3)
[2020-03-05 11:20] LABS: Anion Gap 4 (5-15); Blood Urea Nitrogen 18 mg/dL (7-18); Calcium 9.3 mg/dL (8.5-10.1); Carbon Dioxide 28 mmol/L (21-32); Chloride 108 mmol/L (98-107); Potassium 4.1 mmol/L (3.5-5.1); Sodium 140 mmol/L (136-145)
[2020-03-05 11:21] LABS: INR 0.97 (0.9-1.15); Partial Thromboplastin Time 27.3 sec (23.0-31.2)
[2020-03-05 11:28] LABS: Alanine Aminotransferase 19 U/L (13-56); Alkaline Phosphatase 54 U/L (45-117); Aspartate Aminotransferase 13 U/L (15-37); BUN/Creatinine Ratio 21.2; Bilirubin, Total 0.5 mg/dL (0.2-1.0); GFR African American 84 mL/min; GFR Non-African American 69 mL/min; Glucose 117 mg/dL (74-106); Total Protein 7.3 g/dL (6.4-8.2)
[2020-03-05 11:52] LABS: Urine Bacteria FEW /hpf (None Seen); Urine Blood Negative /uL (Negative); Urine Hyaline Cast FEW /lpf (0 - 2); Urine Specific Gravity 1.008 (1.001-1.035); Urine WBC <1 /hpf (0 - 5)
[2020-03-05 13:05] VITALS: BP 121/79
== END 2020-03-05 13:40 | disposition short-term general hospital (02) ==
LOC: EDBD 10:19 → ER 10:19
DX: J44.1 Chronic obstructive pulmonary disease with (acute) exacerbation (principal); R06.03 Acute respiratory distress; I11.0 Hypertensive heart disease with heart failure; I50.9 Heart failure, unspecified; E78.5 Hyperlipidemia, unspecified; F17.210 Nicotine dependence, cigarettes, uncomplicated; I25.2 Old myocardial infarction; Z98.61 Coronary angioplasty status
CPT/HCPCS: 36415; 71045; 80053; 81001; 83880; 84484; 85025; 85379; 85610; 85730; 93005; 94640; 96374; 96375; 99285; J1940; J2930; J7644

== ENCOUNTER 2020-03-12 00:37 | Emergency (ER) | payer OTHER ==
[~2020-03-12] VITALS: Ht 165.1 cm; Wt 81.6 kg
[2020-03-12 01:43] VITALS: BP 105/68
[2020-03-12] MEDS ORDERED: IPRATROPIUM BROM 0.5 MG/2.5ML INH SOL NEB ONE (02:30)
[2020-03-12] MEDS ORDERED: methylPREDNISolone SOD SUCC 125 MG/2 ML VL IV ONE (02:30)
[2020-03-12] MEDS ORDERED: ALBUTEROL SULF 2.5 MG/0.5ML(0.5%) NEB SOLN NEB ONE (02:30)
[2020-03-12 03:30] VITALS: BP 93/66
[2020-03-12 04:00] VITALS: BP 111/64
[2020-03-12 05:20] VITALS: BP 109/68
[2020-03-12 06:00] VITALS: BP 118/70
[2020-03-12 06:08] LABS: Eosinophils # (auto) 0.2 10 ^3/uL (0-0.8); Lymphocytes # (auto) 0.9 10 ^3/uL (0.4-5.4); Monocytes # (auto) 0.3 10 ^3/uL (0-1.3); Monocytes % (auto) 2.3 % (0.0-12.0)
[2020-03-12 06:12] LABS: Basophils # (auto) 0.1 10 ^3/uL (0-0.2); Basophils % (auto) 0.5 % (0.0-2.0); Eosinophils % (auto) 1.6 % (0.0-7.0); Hematocrit 51.4 % (36.0-46.0); Hemoglobin 16.8 g/dL (12.2-16.2); Lymphocytes % (auto) 7.2 % (10.0-50.0); Mean Corpuscular Hgb Conc. 32.7 g/dL (32.0-36.0); Mean Corpuscular Volume 85.6 fL (80.0-100.0); Neutrophils # (auto) 11.4 10 ^3/uL (1.6-8.6); Neutrophils % (auto) 88.4 % (37.0-80.0); Nucleated Red Blood Cells % 0.1 %; Platelet Count (auto) 361 10^3/uL (140-450); Red Cell Distribution Width 14.7 % (11.8-14.3)
[2020-03-12 06:26] LABS: Albumin 3.7 g/dL (3.4-5.0); Magnesium 2.6 mg/dL (1.6-2.6); Potassium 3.9 mmol/L (3.5-5.1)
[2020-03-12 06:34] LABS: BUN/Creatinine Ratio 20.4; Bilirubin, Total 0.6 mg/dL (0.2-1.0); Total Protein 6.8 g/dL (6.4-8.2)
[2020-03-12 06:35] LABS: INR 1.01 (0.9-1.15); Partial Thromboplastin Time 24.1 sec (23.0-31.2)
== END 2020-03-12 07:24 | disposition left against medical advice (07) ==
LOC: ER 00:37 → EDBD 00:37 → ER 07:24
DX: J44.1 Chronic obstructive pulmonary disease with (acute) exacerbation (principal); I11.0 Hypertensive heart disease with heart failure; I50.9 Heart failure, unspecified; E78.5 Hyperlipidemia, unspecified; I25.2 Old myocardial infarction; F17.210 Nicotine dependence, cigarettes, uncomplicated; Z98.61 Coronary angioplasty status
CPT/HCPCS: 36415; 36600; 71045; 80053; 82805; 83735; 83880; 84484; 85025; 85379; 85610; 85730; 94640; 94660; 96374; 99285; J2930; J7644

== ENCOUNTER 2021-01-31 23:58 | Inpatient (IN) | payer OTHER ==
[~2021-01-31] VITALS: Ht 165.1 cm; Wt 78.2 kg
[2021-02-01 00:04] VITALS: BP 150/90
[2021-02-01] MEDS ORDERED: methylPREDNISolone SOD SUCC 125 MG/2 ML VL IV ONE (00:15)
[2021-02-01] MEDS ORDERED: IPRATROPIUM BROM 0.5 MG/2.5ML INH SOL NEB ONE (00:15)
[2021-02-01] MEDS ORDERED: ALBUTEROL SULF 2.5 MG/0.5ML(0.5%) NEB SOLN NEB ONE (00:15)
[2021-02-01 00:39] LABS: Basophils # (auto) 0.1 10 ^3/uL (0-0.2); Lymphocytes # (auto) 4.6 10 ^3/uL (0.4-5.4); Nucleated Red Blood Cells % 0.1 %
[2021-02-01 00:42] LABS: Basophils % (auto) 0.5 % (0.0-2.0); Eosinophils # (auto) 0.3 10 ^3/uL (0-0.8); Eosinophils % (auto) 1.7 % (0.0-7.0); Hemoglobin 17.1 g/dL (12.2-16.2); Lymphocytes % (auto) 27.5 % (10.0-50.0); Mean Corpuscular Hemoglobin 27.8 pg (28.0-32.0); Mean Corpuscular Hgb Conc. 32.9 g/dL (32.0-36.0); Mean Corpuscular Volume 84.6 fL (80.0-100.0); Monocytes # (auto) 1.5 10 ^3/uL (0-1.3); Monocytes % (auto) 9.1 % (0.0-12.0); Neutrophils # (auto) 10.2 10 ^3/uL (1.6-8.6); Neutrophils % (auto) 61.2 % (37.0-80.0); Red Blood Cells 6.15 10^6/uL (4.0-5.20); Red Cell Distribution Width 16.3 % (11.8-14.3); White Blood Cell 16.7 10^3/uL (4.4-10.8)
[2021-02-01 00:58] LABS: Alanine Aminotransferase 83 U/L (13-56); Albumin 3.5 g/dL (3.4-5.0); Anion Gap 8 (5-15); Aspartate Aminotransferase 92 U/L (15-37); BUN/Creatinine Ratio 17.3; Blood Urea Nitrogen 23 mg/dL (7-18); Calcium 9.1 mg/dL (8.5-10.1); Carbon Dioxide 28 mmol/L (21-32); Chloride 101 mmol/L (98-107); GFR African American 50 mL/min; GFR Non-African American 41 mL/min; Glucose 179 mg/dL (74-106); Sodium 137 mmol/L (136-145)
[2021-02-01 01:03] LABS: Alkaline Phosphatase 81 U/L (45-117); Bilirubin, Total 0.6 mg/dL (0.2-1.0); Total Protein 7.6 g/dL (6.4-8.2)
[2021-02-01] MEDS ORDERED: levoFLOXacin 750MG 150 ML IV ONE (02:00)
[2021-02-01 02:36] VITALS: BP 116/71
[2021-02-01] MEDS ORDERED: NITROGLYCERIN 0.4 MG SL TAB SL PRN (07:15)
[2021-02-01] MEDS ORDERED: MORPHINE SULFATE INJECTION 2 MG/ML SYRG IV PRN (07:15)
[2021-02-01] MEDS ORDERED: DOCUSATE SOD 100 MG CAP PO PRN (07:15)
[2021-02-01] MEDS ORDERED: ONDANSETRON HCL 4 MG/2 ML VIAL IV PRN (07:15)
[2021-02-01] MEDS ORDERED: HYDROcodone-ACET 5/325MG TAB PO PRN (07:15)
[2021-02-01 07:40] LABS: Basophils # (auto) 0 10 ^3/uL (0-0.2); Basophils % (auto) 0.3 % (0.0-2.0); Eosinophils # (auto) 0 10 ^3/uL (0-0.8); Eosinophils % (auto) 0.2 % (0.0-7.0); Hemoglobin 15.6 g/dL (12.2-16.2); Lymphocytes # (auto) 0.4 10 ^3/uL (0.4-5.4); Lymphocytes % (auto) 4.6 % (10.0-50.0); Mean Corpuscular Hemoglobin 27.6 pg (28.0-32.0); Mean Corpuscular Hgb Conc. 33.2 g/dL (32.0-36.0); Monocytes # (auto) 0.1 10 ^3/uL (0-1.3); Monocytes % (auto) 1.5 % (0.0-12.0); Neutrophils % (auto) 93.4 % (37.0-80.0); Nucleated Red Blood Cells % 0.1 %; Red Blood Cells 5.66 10^6/uL (4.0-5.20); Red Cell Distribution Width 15.8 % (11.8-14.3); White Blood Cell 8.6 10^3/uL (4.4-10.8)
[2021-02-01 07:53] LABS: Albumin 3.2 g/dL (3.4-5.0); BUN/Creatinine Ratio 18.6; Potassium 4.6 mmol/L (3.5-5.1)
[2021-02-01 07:56] LABS: Bilirubin, Total 0.5 mg/dL (0.2-1.0); Total Protein 6.9 g/dL (6.4-8.2)
[2021-02-01] MEDS ORDERED: SODIUM CHLORIDE 0.9% 1,000 ML IV ONE (08:00)
[2021-02-01] MEDS: FAMOTIDINE (10MG/ML) 2ML VL IV SCH (09:47)
[2021-02-01] MEDS: cefTRIAXone 1GM/50ML D5W 50 ML IV SCH (09:47)
[2021-02-01] MEDS: MULTIPLE VITAMIN TAB PO SCH (09:47)
[2021-02-01] MEDS: IPRATROPIUM BROM 0.5 MG/2.5ML INH SOL NEB SCH ×4 (10:00→23:04)
[2021-02-01] MEDS ORDERED: HEPARIN SODIUM (PORCINE) 5000 UNITS/ML 1ML VIAL SC SCH (10:00)
[2021-02-01] MEDS ORDERED: ZINC SULFATE 220mg CAP or TAB PO SCH (10:00)
[2021-02-01] MEDS ORDERED: ASCORBIC ACID 500 MG TAB PO SCH (10:00)
[2021-02-01] MEDS: ALBUTEROL SULF 2.5 MG/0.5ML(0.5%) NEB SOLN NEB SCH ×4 (10:01→23:06)
[2021-02-01] MEDS: ACETAMINOPHEN 325 MG TAB PO PRN (13:35)
[2021-02-01] MEDS ORDERED: methylPREDNISolone SOD SUCC 40 MG/ML VL IV SCH (14:00)
[2021-02-01] MEDS: SODIUM CHLOR 0.9% PF (SALINE LOCK) 10ML VIAL/SYR IV SCH ×2 (14:19→22:02)
[2021-02-01] MEDS: ENOXAPARIN SOD 60 MG/0.6 ML SYRINGE SC SCH (22:06)
[2021-02-01] MEDS: methylPREDNISolone SOD SUCC 40 MG/ML VL IV SCH (22:06)
[2021-02-02 04:41] LABS: Albumin 3.1 g/dL (3.4-5.0); BUN/Creatinine Ratio 18.6; Calcium 9.4 mg/dL (8.5-10.1); Potassium 4.1 mmol/L (3.5-5.1)
[2021-02-02 04:47] LABS: Basophils # (auto) 0 10 ^3/uL (0-0.2); Basophils % (auto) 0.1 % (0.0-2.0); Bilirubin, Total 0.3 mg/dL (0.2-1.0); Eosinophils # (auto) 0 10 ^3/uL (0-0.8); Hematocrit 49.2 % (36.0-46.0); Lymphocytes # (auto) 0.4 10 ^3/uL (0.4-5.4); Lymphocytes % (auto) 4.3 % (10.0-50.0); Mean Corpuscular Hemoglobin 27.5 pg (28.0-32.0); Mean Corpuscular Hgb Conc. 32.6 g/dL (32.0-36.0); Mean Corpuscular Volume 84.3 fL (80.0-100.0); Monocytes # (auto) 0.3 10 ^3/uL (0-1.3); Monocytes % (auto) 2.8 % (0.0-12.0); Neutrophils # (auto) 9.1 10 ^3/uL (1.6-8.6); Neutrophils % (auto) 92.8 % (37.0-80.0); Red Blood Cells 5.83 10^6/uL (4.0-5.20); Red Cell Distribution Width 16.1 % (11.8-14.3); Total Protein 6.6 g/dL (6.4-8.2); White Blood Cell 9.9 10^3/uL (4.4-10.8)
[2021-02-02] MEDS: ALBUTEROL SULF 2.5 MG/0.5ML(0.5%) NEB SOLN NEB SCH ×5 (06:10→22:33)
[2021-02-02] MEDS: IPRATROPIUM BROM 0.5 MG/2.5ML INH SOL NEB SCH ×5 (06:10→22:33)
[2021-02-02] MEDS: SODIUM CHLOR 0.9% PF (SALINE LOCK) 10ML VIAL/SYR IV SCH ×3 (06:46→22:08)
[2021-02-02] MEDS: LEVOTHYROXINE SODIUM 50 MCG TAB PO SCH (06:47)
[2021-02-02] MEDS: methylPREDNISolone SOD SUCC 40 MG/ML VL IV SCH ×2 (09:40→21:55)
[2021-02-02] MEDS: cefTRIAXone 1GM/50ML D5W 50 ML IV SCH (09:40)
[2021-02-02] MEDS: FAMOTIDINE (10MG/ML) 2ML VL IV SCH (09:40)
[2021-02-02] MEDS: MULTIPLE VITAMIN TAB PO SCH (09:40)
[2021-02-02] MEDS: ENOXAPARIN SOD 60 MG/0.6 ML SYRINGE SC SCH ×2 (09:40→21:55)
[2021-02-02] MEDS ORDERED: FURO20TA3 PO (17:59)
[2021-02-02] MEDS ORDERED: PRE5T PO (17:59)
[2021-02-02] MEDS ORDERED: SERT50TA19 PO (17:59)
[2021-02-02] MEDS ORDERED: BENZ100C97 PO (17:59)
[2021-02-02] MEDS ORDERED: LOSA25TA38 PO (17:59)
[2021-02-02] MEDS ORDERED: ASPI-543 PO (17:59)
[2021-02-02] MEDS ORDERED: CHOL100040 PO (17:59)
[2021-02-02] MEDS ORDERED: CARV6.2551 PO (17:59)
[2021-02-02 22:00] VITALS: BP 107/86
[2021-02-03] MEDS: ALBUTEROL SULF 2.5 MG/0.5ML(0.5%) NEB SOLN NEB SCH ×4 (04:32→20:17)
[2021-02-03] MEDS: IPRATROPIUM BROM 0.5 MG/2.5ML INH SOL NEB SCH ×4 (04:32→20:18)
[2021-02-03 05:00] VITALS: BP 149/97
[2021-02-03] MEDS: guaiFENesin-DM 100/10mg/5ml SYR PO PRN ×4 (05:33→23:08)
[2021-02-03] MEDS: SODIUM CHLOR 0.9% PF (SALINE LOCK) 10ML VIAL/SYR IV SCH ×3 (06:00→22:00)
[2021-02-03] MEDS: LEVOTHYROXINE SODIUM 50 MCG TAB PO SCH (06:45)
[2021-02-03 09:00] VITALS: BP 136/77
[2021-02-03] MEDS ORDERED: VANCOMYCIN PER PHARMACY 0 MG IV SCH (09:00)
[2021-02-03] MEDS: cefTRIAXone 1GM/50ML D5W 50 ML IV SCH (09:06)
[2021-02-03] MEDS: FAMOTIDINE (10MG/ML) 2ML VL IV SCH (09:07)
[2021-02-03] MEDS: MULTIPLE VITAMIN TAB PO SCH (09:07)
[2021-02-03] MEDS: ENOXAPARIN SOD 60 MG/0.6 ML SYRINGE SC SCH ×2 (09:07→22:16)
[2021-02-03] MEDS: methylPREDNISolone SOD SUCC 40 MG/ML VL IV SCH (09:08)
[2021-02-03] MEDS: VANCOMYCIN 1GM/250ML 250 ML IV SCH (10:23)
[2021-02-03 13:00] VITALS: BP 141/80
[2021-02-03] MEDS: ACETAMINOPHEN 325 MG TAB PO PRN (16:53)
[2021-02-03 20:00] VITALS: BP 115/74
[2021-02-03 22:00] VITALS: BP 115/74
[2021-02-04] MEDS: IPRATROPIUM BROM 0.5 MG/2.5ML INH SOL NEB SCH ×7 (00:16→22:42)
[2021-02-04] MEDS: ALBUTEROL SULF 2.5 MG/0.5ML(0.5%) NEB SOLN NEB SCH ×7 (00:16→22:42)
[2021-02-04] MEDS ORDERED: ALBUTEROL SULF 2.5 MG/0.5ML(0.5%) NEB SOLN ONE (04:51)
[2021-02-04 05:00] VITALS: BP 115/65
[2021-02-04] MEDS: SODIUM CHLOR 0.9% PF (SALINE LOCK) 10ML VIAL/SYR IV SCH ×3 (06:32→21:55)
[2021-02-04] MEDS: LEVOTHYROXINE SODIUM 50 MCG TAB PO SCH ×2 (07:00)
[2021-02-04] MEDS: cefTRIAXone 1GM/50ML D5W 50 ML IV SCH (08:58)
[2021-02-04] MEDS: MULTIPLE VITAMIN TAB PO SCH (08:59)
[2021-02-04 09:00] VITALS: BP 139/69
[2021-02-04 09:42] LABS: Basophils # (auto) 0 10 ^3/uL (0-0.2); Basophils % (auto) 0.2 % (0.0-2.0); Eosinophils # (auto) 0 10 ^3/uL (0-0.8); Eosinophils % (auto) 0.2 % (0.0-7.0); Hemoglobin 15.8 g/dL (12.2-16.2); Lymphocytes # (auto) 1.6 10 ^3/uL (0.4-5.4); Lymphocytes % (auto) 14.7 % (10.0-50.0); Mean Corpuscular Hemoglobin 27.2 pg (28.0-32.0); Mean Corpuscular Hgb Conc. 32.8 g/dL (32.0-36.0); Mean Corpuscular Volume 82.8 fL (80.0-100.0); Monocytes # (auto) 0.8 10 ^3/uL (0-1.3); Monocytes % (auto) 7.7 % (0.0-12.0); Neutrophils # (auto) 8.5 10 ^3/uL (1.6-8.6); Neutrophils % (auto) 77.2 % (37.0-80.0); Nucleated Red Blood Cells % 0.1 %; Red Blood Cells 5.79 10^6/uL (4.0-5.20); Red Cell Distribution Width 16.3 % (11.8-14.3)
[2021-02-04] MEDS: ENOXAPARIN SOD 60 MG/0.6 ML SYRINGE SC SCH ×2 (10:00→21:55)
[2021-02-04] MEDS: VANCOMYCIN 1GM/250ML 250 ML IV SCH (10:00)
[2021-02-04] MEDS: methylPREDNISolone SOD SUCC 40 MG/ML VL IV SCH (10:01)
[2021-02-04] MEDS: FAMOTIDINE (10MG/ML) 2ML VL IV SCH (10:01)
[2021-02-04 10:14] LABS: INR 1.05 (0.9-1.15)
[2021-02-04] MEDS ORDERED: ALPRAZolam 0.25 MG TAB PO ONE (12:45)
[2021-02-04 13:00] VITALS: BP 114/74
[2021-02-04] MEDS: guaiFENesin-DM 100/10mg/5ml SYR PO PRN (13:44)
[2021-02-04 17:00] VITALS: BP 125/83
[2021-02-04 20:00] VITALS: BP 122/83
[2021-02-04] MEDS: ATORVASTATIN 20 MG TAB PO SCH (21:55)
[2021-02-04 22:00] VITALS: BP_SYST 117; BP_SYST 122; BP_DIAS 71; BP_DIAS 83
[2021-02-05 05:00] VITALS: BP 132/74
[2021-02-05 06:00] LABS: Calcium 8.8 mg/dL (8.5-10.1); Potassium 3.9 mmol/L (3.5-5.1)
[2021-02-05] MEDS: SODIUM CHLOR 0.9% PF (SALINE LOCK) 10ML VIAL/SYR IV SCH ×3 (06:00→22:00)
[2021-02-05 06:06] LABS: BUN/Creatinine Ratio 24.4
[2021-02-05] MEDS: ALBUTEROL SULF 2.5 MG/0.5ML(0.5%) NEB SOLN NEB SCH ×6 (06:12→22:32)
[2021-02-05] MEDS: IPRATROPIUM BROM 0.5 MG/2.5ML INH SOL NEB SCH ×6 (06:12→22:32)
[2021-02-05] MEDS: LEVOTHYROXINE SODIUM 50 MCG TAB PO SCH (07:06)
[2021-02-05 09:00] VITALS: BP 118/63
[2021-02-05 09:00] LABS: Basophils # (auto) 0 10 ^3/uL (0-0.2); Eosinophils # (auto) 0.1 10 ^3/uL (0-0.8); Monocytes # (auto) 0.8 10 ^3/uL (0-1.3); Neutrophils # (auto) 8.4 10 ^3/uL (1.6-8.6)
[2021-02-05 09:01] LABS: Basophils % (auto) 0.3 % (0.0-2.0); Eosinophils % (auto) 0.5 % (0.0-7.0); Hemoglobin 16.8 g/dL (12.2-16.2); Lymphocytes # (auto) 1.9 10 ^3/uL (0.4-5.4); Lymphocytes % (auto) 16.9 % (10.0-50.0); Mean Corpuscular Hemoglobin 27.6 pg (28.0-32.0); Mean Corpuscular Hgb Conc. 32.9 g/dL (32.0-36.0); Mean Corpuscular Volume 83.8 fL (80.0-100.0); Monocytes % (auto) 7.3 % (0.0-12.0); Red Blood Cells 6.08 10^6/uL (4.0-5.20); Red Cell Distribution Width 16.5 % (11.8-14.3); White Blood Cell 11.2 10^3/uL (4.4-10.8)
[2021-02-05] MEDS: ASPirin-EC 81 mg tab PO SCH (09:07)
[2021-02-05] MEDS: methylPREDNISolone SOD SUCC 40 MG/ML VL IV SCH (09:07)
[2021-02-05] MEDS: MULTIPLE VITAMIN TAB PO SCH (09:07)
[2021-02-05] MEDS: FAMOTIDINE (10MG/ML) 2ML VL IV SCH (09:08)
[2021-02-05] MEDS: ENOXAPARIN SOD 60 MG/0.6 ML SYRINGE SC SCH ×2 (09:09→22:00)
[2021-02-05] MEDS ORDERED: ALPRAZolam 0.25 MG TAB PO PRN (09:45)
[2021-02-05] MEDS: guaiFENesin-DM 100/10mg/5ml SYR PO PRN (11:13)
[2021-02-05] MEDS ORDERED: MIDAZOLAM HCL 2MG/2ML 2ml VIAL (1mg/ml) ONE (12:48)
[2021-02-05] MEDS ORDERED: ANGIOMAX 250 MG VIAL IV ONE (12:48)
[2021-02-05] MEDS ORDERED: fentaNYL CITRATE 100 MCG/2 ML VL ONE (12:48)
[2021-02-05] MEDS ORDERED: SODIUM CHL 0.9% 0 ML ONE (12:49)
[2021-02-05] MEDS ORDERED: LIDOCAINE 2%HCL (LOCAL ANESTH.) INJ 20ML MDV ONE (12:57)
[2021-02-05 13:00] VITALS: BP_SYST 107; BP_SYST 123; BP_DIAS 67; BP_DIAS 75
[2021-02-05] MEDS ORDERED: IOHEXOL 350 MG/ML 100ML IJ ONE (13:05)
[2021-02-05 17:00] VITALS: BP 127/82
[2021-02-05 22:00] VITALS: BP 127/79
[2021-02-05] MEDS: ATORVASTATIN 20 MG TAB PO SCH (22:00)
[2021-02-06 05:00] VITALS: BP 121/99
[2021-02-06] MEDS: SODIUM CHLOR 0.9% PF (SALINE LOCK) 10ML VIAL/SYR IV SCH ×2 (06:00→14:00)
[2021-02-06] MEDS: LEVOTHYROXINE SODIUM 50 MCG TAB PO SCH (07:00)
[2021-02-06] MEDS: guaiFENesin-DM 100/10mg/5ml SYR PO PRN (07:05)
[2021-02-06] MEDS: ALBUTEROL SULF 2.5 MG/0.5ML(0.5%) NEB SOLN NEB SCH ×4 (07:09→18:00)
[2021-02-06] MEDS: IPRATROPIUM BROM 0.5 MG/2.5ML INH SOL NEB SCH ×4 (07:09→18:00)
[2021-02-06 08:43] VITALS: BP 134/81
[2021-02-06 09:45] LABS: Basophils # (auto) 0 10 ^3/uL (0-0.2); Eosinophils # (auto) 0.1 10 ^3/uL (0-0.8); Monocytes # (auto) 0.9 10 ^3/uL (0-1.3); Nucleated Red Blood Cells % 0.2 %
[2021-02-06 09:48] LABS: Basophils % (auto) 0.2 % (0.0-2.0); Hematocrit 53.5 % (36.0-46.0); Hemoglobin 17.4 g/dL (12.2-16.2); Lymphocytes # (auto) 2.3 10 ^3/uL (0.4-5.4); Lymphocytes % (auto) 19.6 % (10.0-50.0); Mean Corpuscular Hemoglobin 27.4 pg (28.0-32.0); Mean Corpuscular Hgb Conc. 32.6 g/dL (32.0-36.0); Monocytes % (auto) 7.1 % (0.0-12.0); Neutrophils # (auto) 8.6 10 ^3/uL (1.6-8.6); Neutrophils % (auto) 72.1 % (37.0-80.0); Red Blood Cells 6.37 10^6/uL (4.0-5.20); Red Cell Distribution Width 16.3 % (11.8-14.3)
[2021-02-06] MEDS: ENOXAPARIN SOD 60 MG/0.6 ML SYRINGE SC SCH (10:00)
[2021-02-06] MEDS: MULTIPLE VITAMIN TAB PO SCH (10:22)
[2021-02-06] MEDS: ASPirin-EC 81 mg tab PO SCH (10:22)
[2021-02-06] MEDS: methylPREDNISolone SOD SUCC 40 MG/ML VL IV SCH (10:23)
[2021-02-06 12:30] VITALS: BP 134/81
[2021-02-06 13:00] VITALS: BP 105/54
[2021-02-06 17:00] VITALS: BP 115/70
[2021-02-06] MEDS ORDERED: PRED20TA2 PO (17:30)
[2021-02-07] MEDS ORDERED: predniSONE 20 MG TAB PO SCH (10:00)
== END 2021-02-06 18:49 | disposition home or self-care (01) | DRG 189 ==
LOC: EDBD 23:58 → ER 23:58 → TELE 02-01 07:03 → TELE-WESTW 02-02 16:26
PROVIDERS: ADMIT Nurse Practitioner Family; ATTEND Internal Medicine Nephrology
PROC: 5A09357 Assistance with Respiratory Ventilation, Less than 24 Consecutive Hours, Continuous Positive Airway Pressure (ICD-10-PCS; 2021-02-01)
PROC: B2111ZZ Fluoroscopy of Multiple Coronary Arteries using Low Osmolar Contrast (ICD-10-PCS; principal; 2021-02-05)
PROC: B2151ZZ Fluoroscopy of Left Heart using Low Osmolar Contrast (ICD-10-PCS; 2021-02-05)
PROC: 4A023N7 Measurement of Cardiac Sampling and Pressure, Left Heart, Percutaneous Approach (ICD-10-PCS; 2021-02-05)
DX: J96.21 Acute and chronic respiratory failure with hypoxia (principal); I21.A1 Myocardial infarction type 2; J44.1 Chronic obstructive pulmonary disease with (acute) exacerbation; N17.9 Acute kidney failure, unspecified; I13.0 Hypertensive heart and chronic kidney disease with heart failure and stage 1 through stage 4 chronic kidney disease, or unspecified chronic kidney disease; J98.11 Atelectasis; I50.22 Chronic systolic (congestive) heart failure; I25.5 Ischemic cardiomyopathy; J96.22 Acute and chronic respiratory failure with hypercapnia; E03.9 Hypothyroidism, unspecified; E66.9 Obesity, unspecified; E78.5 Hyperlipidemia, unspecified; N18.31 Chronic kidney disease, stage 3a; Z20.822 Contact with and (suspected) exposure to COVID-19; I25.10 Atherosclerotic heart disease of native coronary artery without angina pectoris; Z82.49 Family history of ischemic heart disease and other diseases of the circulatory system; Z82.5 Family history of asthma and other chronic lower respiratory diseases; Z95.5 Presence of coronary angioplasty implant and graft; Z95.810 Presence of automatic (implantable) cardiac defibrillator; Z68.28 Body mass index [BMI] 28.0-28.9, adult; Z88.8 Allergy status to other drugs, medicaments and biological substances; Z72.0 Tobacco use
CPT/HCPCS: 36415; 36600; 71045; 80048; 80053; 80061; 82565; 82805; 83036; 83605; 83880; 84443; 84484; 85025; 85610; 87040; 87077; 87186; 87426; 93005; 93306; 93458; 93970; 94640; 94644; 94660; 96361; 96365; 96366; 96372; 96375; 96376; 99152; 99291; G0378; J0696; J1956; J2250; J3490

== ENCOUNTER 2024-02-18 23:52 | Inpatient (IN) | payer OTHER ==
[~2024-02-18] VITALS: Ht 175.3 cm; Wt 58.0 kg
[~2024-02-18 23:52] MED LIST changes: +ALBU108A5 IN; +ASPI-543 PO; +BENZ100C97 PO; -CAR3125T PO; +CARV6.2551 PO; +CHOL100040 PO; +FLUT50SP NAS; +FURO20TA3 PO; +LOSA-533 PO; +PRE5T PO; +PRED20TA2 PO; -SACU1TAB PO; +SERT-206 PO; +TIOT1AER IN
[2024-02-19] VITALS (14 sets, daily range): BP systolic 95–103; BP diastolic 53–57; PULSE 72–92; RESP 15–24; TEMP 98–98.7; O2SAT 92–98
[2024-02-19] MEDS: methylPREDNISolone SOD SUCC 125 MG/2 ML VL IV ONE (00:16)
[2024-02-19 00:24] LABS: Basophils # (auto) 0.2 10 ^3/uL (0-0.2); Eosinophils # (auto) 0.6 10 ^3/uL (0-0.8); Eosinophils % (auto) 2.8 % (0.0-7.0); Hematocrit 55.1 % (36.0-46.0); Hemoglobin 17.7 g/dL (12.2-16.2); Lymphocytes # (auto) 4.3 10 ^3/uL (0.4-5.4); Lymphocytes % (auto) 18.6 % (10.0-50.0); Mean Corpuscular Hgb Conc. 32.2 g/dL (32.0-36.0); Monocytes # (auto) 1.3 10 ^3/uL (0-1.3); Monocytes % (auto) 5.8 % (0.0-12.0); Neutrophils # (auto) 16.6 10 ^3/uL (1.6-8.6); Neutrophils % (auto) 71.8 % (37.0-80.0); Nucleated Red Blood Cells % 0.1 %; Platelet Count (auto) 507 10^3/uL (140-450); Red Cell Distribution Width 17.2 % (11.8-14.3); White Blood Cell 23.1 10^3/uL (4.4-10.8)
[2024-02-19] MEDS: IPRATROPIUM BROM 0.5 MG/2.5ML INH SOL ONE (00:39)
[2024-02-19] MEDS: ALBUTEROL SULF 2.5 MG/0.5ML(0.5%) NEB SOLN ONE (00:39)
[2024-02-19 00:40] LABS: INR 1.05 (0.9-1.15); Partial Thromboplastin Time 28.5 SEC (24.5-34.5); Prothrombin Time 11.1 sec (9.3-11.8)
[2024-02-19 00:43] LABS: Alanine Aminotransferase 44 U/L (7-40); Alkaline Phosphatase 89 U/L (46-116); Calcium 9.9 mg/dL (8.7-10.4); Carbon Dioxide 25 mmol/L (20-31); Chloride 109 mmol/L (98-107); Glucose 168 mg/dL (74-106); Magnesium 2.3 mg/dL (1.6-2.6); Potassium 4.8 mmol/L (3.5-5.1); Sodium 138 mmol/L (136-145)
[2024-02-19 00:44] LABS: Albumin 4.7 g/dL (3.2-4.8); Anion Gap 4 (5-15); Aspartate Aminotransferase 51 U/L (13-40); Bilirubin, Total 0.3 mg/dL (0.2-1.0); Blood Urea Nitrogen 18 mg/dL (9-23); Total Protein 7.5 g/dL (5.7-8.2)
[2024-02-19] MEDS: ALBUTEROL SULF 2.5 MG/0.5ML(0.5%) NEB SOLN NEB ONE (00:44)
[2024-02-19] MEDS: IPRATROPIUM BROM 0.5 MG/2.5ML INH SOL NEB ONE (00:44)
[2024-02-19 02:09] LABS: Base Excess -4.8 mmol/L (-2.0-3.0)
[2024-02-19] MEDS: SODIUM CHLORIDE 0.9% 1,000 ML IV ONE (02:15)
[2024-02-19] MEDS: VANCOMYCIN 1GM/200ML 200 ML IV ONE (04:50)
[2024-02-19] MEDS: CEFEPIME 2GM/50ML NS 50 ML IV ONE (06:05)
[2024-02-19 07:18] LABS: Base Excess -1.2 mmol/L (-2.0-3.0)
[2024-02-19] MEDS ORDERED: DOCUSATE SOD 100 MG CAP PO PRN (12:45)
[2024-02-19] MEDS ORDERED: MORPHINE SULFATE INJ 2 MG/ml SYRG IV PRN (12:45)
[2024-02-19] MEDS ORDERED: NITROGLYCERIN 0.4 MG SL TAB SL PRN (12:45)
[2024-02-19] MEDS ORDERED: ONDANSETRON HCL 4 MG/2 ML VIAL IV PRN (12:45)
[2024-02-19] MEDS ORDERED: levoFLOXacin 500MG 100 ML IV ONE (12:45)
[2024-02-19] MEDS ORDERED: IPRATROPIUM BROM 0.5 MG/2.5ML INH SOL NEB ONE (12:45)
[2024-02-19] MEDS ORDERED: PANTOPRAZOLE 40 MG/10 ML VIAL INJ IV ONE (12:45)
[2024-02-19] MEDS ORDERED: ALBUTEROL SULF 2.5 MG/0.5ML(0.5%) NEB SOLN NEB ONE (12:45)
[2024-02-19] MEDS: levoFLOXacin 500MG 100 ML IV ONE (14:21)
[2024-02-19] MEDS: methylPREDNISolone SOD SUCC 125 MG/2 ML VL IV SCH (14:21)
[2024-02-19] MEDS: PANTOPRAZOLE 40 MG/10 ML VIAL INJ IV ONE (14:21)
[2024-02-19] MEDS: IPRATROPIUM BROM 0.5 MG/2.5ML INH SOL NEB SCH (14:57)
[2024-02-19] MEDS: ALBUTEROL SULF 2.5 MG/0.5ML(0.5%) NEB SOLN NEB SCH (14:57)
[2024-02-19] MEDS ORDERED: BISO5TAB44 PO (18:34)
[2024-02-19] MEDS ORDERED: SACU1TAB4 PO (18:34)
[2024-02-19] MEDS ORDERED: SERT-289 PO (18:34)
[2024-02-19] MEDS ORDERED: DABI150C5 PO (18:34)
[2024-02-19] MEDS: NICOTINE 14 MG/24HR TOPICAL PATCH TD ONE (20:15)
[2024-02-19] MEDS: FUROSEMIDE 20 MG/2 ML VIAL IV ONE (20:15)
[2024-02-19] MEDS: CARVEDILOL 3.125 MG TAB PO SCH (21:51)
[2024-02-19] MEDS ORDERED: CARVEDILOL 3.125 MG TAB PO SCH (22:00)
[2024-02-19] MEDS ORDERED: PATIENTS OWN MEDICATION (Carvedilol 6.25 MG) PO SCH (22:00)
[2024-02-19] MEDS ORDERED: ATORVASTATIN 20 MG TAB PO SCH (22:00)
[2024-02-19] MEDS: SACUBITRIL-VALSARTAN 24mg/26mg TAB PO SCH (23:09)
[2024-02-19] MEDS: ATORVASTATIN 20 MG TAB PO SCH (23:10)
[2024-02-19] MEDS: CHOLECALCIFEROL (VITD3) 1,000UNIT=25mCg TAB PO SCH (23:10)
[2024-02-19] MEDS: ENOXAPARIN SOD 80 MG/0.8ML SYRINGE SC SCH (23:19)
[2024-02-19 23:32] LABS: Triglycerides 62 mg/dL (< 150)
[2024-02-19 23:33] LABS: LDL Cholesterol 47 mg/dL (< 100)
[2024-02-19 23:34] LABS: Cholesterol 111 mg/dL (< 200); HDL Cholesterol 51 mg/dL (40-59)
[2024-02-20] VITALS (19 sets, daily range): BP systolic 101–115; BP diastolic 56–68; PULSE 68–100; RESP 14–24; TEMP 97.7–98.4; O2SAT 93–97
[2024-02-20] MEDS: FUROSEMIDE 20 MG/2 ML VIAL IV SCH (05:42)
[2024-02-20 08:11] LABS: Basophils # (auto) 0 10 ^3/uL (0-0.2); Basophils % (auto) 0.1 % (0.0-2.0); Eosinophils # (auto) 0 10 ^3/uL (0-0.8); Hematocrit 49.9 % (36.0-46.0); Hemoglobin 16.4 g/dL (12.2-16.2); Lymphocytes # (auto) 0.6 10 ^3/uL (0.4-5.4); Lymphocytes % (auto) 3.6 % (10.0-50.0); Mean Corpuscular Hemoglobin 26.3 pg (28.0-32.0); Mean Corpuscular Hgb Conc. 32.9 g/dL (32.0-36.0); Mean Corpuscular Volume 79.9 fL (80.0-100.0); Monocytes # (auto) 0.2 10 ^3/uL (0-1.3); Monocytes % (auto) 1.2 % (0.0-12.0); Neutrophils # (auto) 16.5 10 ^3/uL (1.6-8.6); Neutrophils % (auto) 95.1 % (37.0-80.0); Nucleated Red Blood Cells % 0.1 %; Platelet Count (auto) 361 10^3/uL (140-450); Red Blood Cells 6.24 10^6/uL (4.0-5.20); Red Cell Distribution Width 17.1 % (11.8-14.3); White Blood Cell 17.3 10^3/uL (4.4-10.8)
[2024-02-20 08:30] LABS: Alanine Aminotransferase 27 U/L (7-40); Alkaline Phosphatase 72 U/L (46-116); Anion Gap 9 (5-15); Aspartate Aminotransferase 21 U/L (13-40); BUN/Creatinine Ratio 16.2 (10.0-20.0); Blood Urea Nitrogen 16 mg/dL (9-23); Calcium 10.5 mg/dL (8.7-10.4); Carbon Dioxide 20 mmol/L (20-31); Chloride 107 mmol/L (98-107); Glucose 157 mg/dL (74-106); Potassium 4.6 mmol/L (3.5-5.1); Sodium 136 mmol/L (136-145)
[2024-02-20 08:31] LABS: Albumin 4.2 g/dL (3.2-4.8); Bilirubin, Total 0.3 mg/dL (0.2-1.0); Total Protein 6.9 g/dL (5.7-8.2)
[2024-02-20] MEDS: THYROID 60 MG TAB PO SCH (08:54)
[2024-02-20] MEDS: ASPirin-EC 81 mg tab PO SCH (08:55)
[2024-02-20] MEDS: SERTRALINE HCL 50 MG TAB PO SCH (08:56)
[2024-02-20] MEDS: SPIRONOLACTONE 25 MG TAB PO SCH (08:56)
[2024-02-20] MEDS: PANTOPRAZOLE 40 MG/10 ML VIAL INJ IV SCH (08:56)
[2024-02-20] MEDS: EMPAGLIFLOZIN 10 MG TAB PO SCH (08:56)
[2024-02-20] MEDS: NICOTINE 14 MG/24HR TOPICAL PATCH TD SCH (08:57)
[2024-02-20] MEDS ORDERED: LOSARTAN POTASSIUM 25 MG TAB PO SCH (10:00)
[2024-02-20] MEDS ORDERED: FUROSEMIDE 20 MG/2 ML VIAL IV SCH (10:00)
[2024-02-20] MEDS ORDERED: THYROID 60 MG TAB PO SCH (10:00)
[2024-02-20] MEDS: levoFLOXacin 500MG 100 ML IV SCH (10:42)
[2024-02-20] MEDS: ENOXAPARIN SOD 60 MG/0.6 ML SYRINGE SC SCH (23:09)
[2024-02-21] VITALS (21 sets, daily range): BP systolic 103–121; BP diastolic 61–80; PULSE 75–105; RESP 16–20; TEMP 97.5–98.6; O2SAT 93–99
[2024-02-22] VITALS (24 sets, daily range): BP systolic 104–138; BP diastolic 65–85; PULSE 70–108; RESP 14–20; TEMP 97.7–98.3; O2SAT 90–99
[2024-02-22] MEDS: THYROID 60 MG TAB PO SCH (05:45)
[2024-02-22 10:20] LABS: T3 Total 0.49 ng/mL (0.60-1.81)
[2024-02-22 10:22] LABS: Free T4 (Free Thyroxine) 0.88 ng/dL (0.89-1.76)
[2024-02-22] MEDS: fentaNYL CITRATE 100 MCG/2 ML VL ONE (10:59)
[2024-02-22] MEDS: VERAPAMIL 2.5MG/ML INJ 2ML VIAL IV ONE (11:00)
[2024-02-22] MEDS: MIDAZOLAM HCL 2MG/2ML 2ml VIAL (1mg/ml) ONE (11:00)
[2024-02-22] MEDS: LIDOCAINE 2%HCL (LOCAL ANESTH.) INJ 20ML MDV ONE (11:00)
[2024-02-22] MEDS: SODIUM CHL 0.9% 0 ML ONE (11:00)
[2024-02-22] MEDS: ANGIOMAX 250 MG VIAL IV ONE (11:00)
[2024-02-22] MEDS: HEPARIN SODIUM (PORCINE) 5000 UNITS/ML 1ML VIAL ONE (11:00)
[2024-02-22] MEDS: FUROSEMIDE 20 MG TAB PO SCH (13:30)
[2024-02-22 15:52] LABS: Urine Bacteria None Seen /hpf (None Seen)
[2024-02-22 15:56] LABS: Urine Blood Negative /uL (Negative); Urine Clarity Clear (Clear); Urine Color Light-Yellow (Yellow); Urine Protein, UAD Negative (Negative); Urine Specific Gravity 1.029 (1.001-1.035); Urine Urobilinogen Normal (Negative); Urine WBC 1 /hpf (0 - 5); Urine pH 5.5 (5.0-9.0)
[2024-02-23] VITALS (11 sets, daily range): BP systolic 116–127; BP diastolic 63–77; PULSE 79–91; RESP 14–21; TEMP 97.2–98; O2SAT 93–100
[2024-02-23 06:07] LABS: Basophils # (auto) 0 10 ^3/uL (0-0.2); Basophils % (auto) 0.1 % (0.0-2.0); Eosinophils # (auto) 0 10 ^3/uL (0-0.8); Lymphocytes # (auto) 1.3 10 ^3/uL (0.4-5.4); White Blood Cell 9.5 10^3/uL (4.4-10.8)
[2024-02-23 06:09] LABS: Eosinophils % (auto) 0.1 % (0.0-7.0); Hematocrit 48.3 % (36.0-46.0); Lymphocytes % (auto) 13.3 % (10.0-50.0); Mean Corpuscular Hemoglobin 25.9 pg (28.0-32.0); Mean Corpuscular Hgb Conc. 33.2 g/dL (32.0-36.0); Mean Corpuscular Volume 78.2 fL (80.0-100.0); Monocytes # (auto) 0.7 10 ^3/uL (0-1.3); Monocytes % (auto) 7.6 % (0.0-12.0); Neutrophils # (auto) 7.5 10 ^3/uL (1.6-8.6); Neutrophils % (auto) 78.9 % (37.0-80.0); Platelet Count (auto) 329 10^3/uL (140-450); Red Blood Cells 6.18 10^6/uL (4.0-5.20); Red Cell Distribution Width 16.7 % (11.8-14.3)
[2024-02-23 06:29] LABS: Alanine Aminotransferase 18 U/L (7-40); Albumin 3.6 g/dL (3.2-4.8); Alkaline Phosphatase 51 U/L (46-116); Anion Gap 5 (5-15); Aspartate Aminotransferase 11 U/L (13-40); BUN/Creatinine Ratio 26.2 (10.0-20.0); Bilirubin, Total 0.5 mg/dL (0.2-1.0); Blood Urea Nitrogen 27 mg/dL (9-23); Calcium 9.9 mg/dL (8.7-10.4); Carbon Dioxide 28 mmol/L (20-31); Chloride 106 mmol/L (98-107); Glucose 91 mg/dL (74-106); Potassium 4.1 mmol/L (3.5-5.1); Sodium 139 mmol/L (136-145)
[2024-02-23 06:30] LABS: Total Protein 5.8 g/dL (5.7-8.2)
[2024-02-23] MEDS ORDERED: PRED20TA2 PO (10:19)
[2024-02-23] MEDS ORDERED: LEVO500T91 PO (10:19)
[2024-02-23] MEDS ORDERED: EMPA1TAB PO (10:19)
[2024-02-23] MEDS: predniSONE 20 MG TAB PO SCH (11:19)
== END 2024-02-23 13:50 | disposition home or self-care (01) | DRG 280 ==
LOC: ER 23:52 → EDBD 23:52 → ER 02-19 12:51 → TELE 02-19 12:51 → UNDODEPER 02-19 13:49 → TELE-CENTR 02-19 17:41
PROVIDERS: ADMIT Nurse Practitioner Family; ATTEND Internal Medicine
PROC: B211YZZ Fluoroscopy of Multiple Coronary Arteries using Other Contrast (ICD-10-PCS; principal; 2024-02-22)
PROC: 4A023N7 Measurement of Cardiac Sampling and Pressure, Left Heart, Percutaneous Approach (ICD-10-PCS; 2024-02-22)
DX: I21.4 Non-ST elevation (NSTEMI) myocardial infarction (principal); I50.23 Acute on chronic systolic (congestive) heart failure; J15.9 Unspecified bacterial pneumonia; J15.69 Pneumonia due to other Gram-negative bacteria; J96.20 Acute and chronic respiratory failure, unspecified whether with hypoxia or hypercapnia; E87.29 Other acidosis; I48.20 Chronic atrial fibrillation, unspecified; J44.0 Chronic obstructive pulmonary disease with (acute) lower respiratory infection; J44.1 Chronic obstructive pulmonary disease with (acute) exacerbation; Z68.1 Body mass index [BMI] 19.9 or less, adult; D68.69 Other thrombophilia; I25.10 Atherosclerotic heart disease of native coronary artery without angina pectoris; E78.5 Hyperlipidemia, unspecified; I11.0 Hypertensive heart disease with heart failure; I16.0 Hypertensive urgency; F17.210 Nicotine dependence, cigarettes, uncomplicated; I25.5 Ischemic cardiomyopathy; E03.9 Hypothyroidism, unspecified; Z95.810 Presence of automatic (implantable) cardiac defibrillator; Z88.8 Allergy status to other drugs, medicaments and biological substances; Z79.899 Other long term (current) drug therapy; Z79.82 Long term (current) use of aspirin; Z95.5 Presence of coronary angioplasty implant and graft; I25.2 Old myocardial infarction; Z82.5 Family history of asthma and other chronic lower respiratory diseases; Z82.49 Family history of ischemic heart disease and other diseases of the circulatory system; Z71.6 Tobacco abuse counseling; Z79.02 Long term (current) use of antithrombotics/antiplatelets; Z79.84 Long term (current) use of oral hypoglycemic drugs; Z90.710 Acquired absence of both cervix and uterus; Z99.81 Dependence on supplemental oxygen
CPT/HCPCS: 36415; 36600; 71045; 80053; 80061; 81001; 82805; 83605; 83735; 83880; 84439; 84443; 84480; 84484; 85025; 85379; 85610; 85730; 86850; 86900; 86901; 87040; 87070; 87077; 87186; 87205; 93005; 93306; 93458; 94640; 94660; 96365; 96366; 96367; 96375; 97163; 99152; 99291; 99292; G0378; J0692; J1956; J2250; J2470

== ENCOUNTER 2024-10-13 02:37 | Inpatient (IN) | payer MEDICARE, OTHER ==
[2024-10-13] VITALS (42 sets, daily range): BP systolic 95–149; BP diastolic 54–108; PULSE 68–87; RESP 10–30; TEMP 97.6–100.4; O2SAT 94–100
[~2024-10-13] VITALS: Ht 175.3 cm; Wt 58.0 kg
[~2024-10-13 02:37] MED LIST changes: -BENZ100C97 PO; +BISO5TAB44 PO; +DABI150C5 PO; +EMPA1TAB PO; +LEVO500T91 PO; +SACU1TAB4 PO; -SERT-206 PO; +SERT-289 PO
[2024-10-13] MEDS: ETOMIDATE (2MG/ML) 20ML VIAL IV ONE ×2 (02:42→02:44)
[2024-10-13] MEDS: ROCURONIUM 10MG/ML 10ML VIAL IV ONE ×2 (02:42→02:44)
[2024-10-13] MEDS: MIDAZOLAM DRIP 50 mg/50mL 50 ML IV SCH (03:00)
[2024-10-13] MEDS: NOREPINEPHRINE 8 MG/250ML KIT 250 ML IV SCH (03:00)
--- NOTE | 2024-10-13 03:09 | ED.PDOC ---
History of Present Illness HPI Comments 79-year-old female with a history of CHF and COPD brought in by ambulance after family noted that she was breathing hard and with difficulty and was altered in mental status tonight. EMS noted that the patient was hypoxic in the mid 80s and began bagging Chief Complaint: ALOC Time Seen by MD: 02:49 Primary Care Provider: Mukund Allergies: Coded Allergies: Azithromycin (Unverified Allergy, Intermediate, 10/24/17) Meperidine (Unverified Allergy, Intermediate, 10/24/17) Home Meds Active Scripts Prednisone (Prednisone) 20 Mg Tab, 20 MG PO QAM for 6 Days, #12 MG Prov:ED CROWDER MD 02/23/24 Levofloxacin Hemihydrate (LEVAQUIN 500 MG) 500 Mg Tab, 500 MG PO DAILY for 5 D ays, #5 TAB Prov:ED CROWDER MD 02/23/24 Empagliflozin (Jardiance) 10 Mg Tab, 10 MG PO DAILY for 30 Days, #30 TAB 2 Refills Prov:ED CROWDER MD 02/23/24 Atorvastatin Calcium (ATORVASTATIN CALCIUM) 20 Mg Tab, 20 MG PO HS for 30 Days, #30 TAB Prov:MARK BO MD 01/28/20 Reported Medications Tiotropium Kouts-Olodaterol (Stiolto Respimat 2.5-2.5 Mcg/Act) 1 Aer Aer, AER IN UD for 90 Days, #12 02/22/24 Albuterol Sulfate (Albuterol Sulfate Hfa) 108 Mcg/Act Aer, MCG IN UD for 90 Days, #20.1 02/22/24 Bisoprolol Fumarate (Bisoprolol Fumarate) 5 Mg Tab, 1 TAB PO BID 02/19/24 Sertraline HCl (Sertraline HCl) 50 Mg Tab, 1 TAB PO DAILY 02/19/24 Dabigatran Etexilate Mesylate (Pradaxa) 150 Mg Cap, 1 CAP PO BID 02/19/24 Sacubitril-Valsartan (Entresto 97-103 mg) 1 Tab Tab, 1 TAB PO DAILY 02/19/24 Fluticasone Propionate (Nasal) (Fluticasone Propionate) 50 Mcg/Act Spr, SPRAY AYDEE UD for 60 Days, #32 02/19/24 Losartan Potassium (Losartan Potassium) 25 Mg Tab, 25 MG PO DAILY for 30 Days, MG 02/02/21 Cholecalciferol (VITAMIN D-3) 1,000 Unit Tab, 1000 UNIT PO DAILY, TAB 02/02/21 Furosemide (Furosemide) 20 Mg Tab, 20 MG PO DAILY for 30 Days, MG 02/02/21 Carvedilol (Carvedilol) 6.25 Mg Tab, 6.25 MG PO Q12HR for 30 Days, MG 02/02/21 Aspirin (Aspir-Low) 81 Mg Tab, 81 MG PO DAILY for 30 Days, MG 02/02/21 Prednisone (Prednisone) 5 Mg Tab, 5 MG PO QAM, TAB 02/02/21 Thyroid ([place]artlett Thyroid) 60 Mg Tab, 90 MG PO DAILY, TAB 12/31/19 Information Source: Relative, Emergency Med Personnel Mode of Arrival: EMS Severity: Severe Timing: Hours Duration: Since onset Past Medical History PAST MEDICAL HISTORY: CAD, CHF, COPD, High Lipids, HTN, NH, Thyroid Surgical History: Pacemaker, [employer] History: Denies all [employer] Hx Family History Family History: Reviewed,noncontributory to illness Social History Smoker: Cigarettes, Less Than 1 Pack/Day Alcohol: Denies ETOH Use Drugs: Denies Drug Use Lives In: Home Respiratory: reports: SOB at rest, shortness of breath Neurological: reports: others (confusion / altered) Unable to Obtain due to: Altered Mental Status Physical Exam Exam Comments elderly General Appearance: Moderate Distress HEENT: Normal ENT Inspection, Pharynx Normal, TMs Normal Neck: Full Range of Motion, Non-Tender, Normal, Normal Inspection Respiratory: Respiratory Distress, Other (diminished breath sounds bilateral bases) Cardiovascular: No Edema, No JVD, No Murmur, No Gallop, Normal Peripheral Pulses, Regular Rate/Rhythm Breast Exam: Deferred Gastrointestinal: No Organomegaly, Non Tender, No Pulsatile Mass, Normal Bowel Sounds, Soft Genitalia: Deferred Pelvic: Deferred Rectal: Deferred Extremities: No calf tenderness, Normal capillary refill, Normal inspection, Normal range of motion, Non-tender, No pedal edema Musculoskeletal : Apperance: Normal Neurologic: Alert, market research assistant II-XII nml as Tested, No Motor Deficits, Normal Affect, Normal Mood, No Sensory Deficits Cerebellar Function: Normal Reflexes: Normal Skin: Dry, Normal Color, Warm Lymphatic: No Adenopathy Was a procedure done? Was a procedure done?: Yes Sedation Sedation?: No Informed consent obtained: No Intubation Indication: Respiratory Insufficiency, Altered Mental Status, Airway Protection Prep: Preoxygenation Pretreated with: Sedation Medicated with: Atracurium Intubation Approach: Orotracheal Intubation size: cm (7.5) Informed consent obtained: No Risks/benefits/alt described: No Notes EMS states that they discussed intubation with the family and they were gave verbal consent. Patient was intubated with a 7-1/2 cuffed endotracheal tube and 4-0 MAC blade. Twenty-two at the lip. Good breath sounds bilaterally and good cap no motor color change after intubation Differential Dx Considerations may include: Differential diagnosis includes but is not limited to: coronary ischemia, dehydration, sepsis, electrolyte abnormality, symptomatic anemia, hypovolemia and others X-Ray, Labs, Meds, VS Vital Signs Date Time Temp Pulse Resp B/P (MAP) Pulse Ox O2 Delivery O2 Flow Rate FiO2 10/13/24 09:17 76 20 138/81 99 35 10/13/24 08:01 78 10/13/24 08:00 97.8 79 11 137/86 (103) 100 97.8 10/13/24 07:47 128/75 10/13/24 07:24 76 20 138/81 (100) 98 35 10/13/24 07:00 77 21 120/70 (87) 97 10/13/24 07:00 120/70 10/13/24 06:45 76 19 134/73 (93) 98 10/13/24 06:40 123/63 10/13/24 06:30 78 6 123/63 (83) 99 10/13/24 06:20 131/76 10/13/24 06:15 76 19 131/76 (94) 99 10/13/24 06:00 124/73 10/13/24 06:00 78 12 124/73 (90) 98 10/13/24 05:45 81 20 111/72 (85) 96 10/13/24 05:35 84 20 149/108 (122) 97 45 10/13/24 05:30 81 14 142/87 (105) 97 10/13/24 05:20 147/91 10/13/24 05:15 80 20 106/66 (79) 97 10/13/24 05:00 68 20 106/70 (82) 97 10/13/24 05:00 106/70 10/13/24 04:45 71 20 92/63 (73) 10/13/24 04:36 85 20 135/78 (97) 97 45 10/13/24 04:30 75 20 108/69 (82) 10/13/24 04:20 135/78 10/13/24 04:00 71 20 98/67 (77) 99 10/13/24 04:00 98/67 10/13/24 03:45 71 20 98/66 (77) 99 10/13/24 03:25 73 20 93/59 (70) 98 10/13/24 03:20 77 20 84/58 (67) 98 10/13/24 03:20 84/58 10/13/24 03:15 77 15 72/41 (51) 98 10/13/24 03:10 79 20 68/44 (52) 98 10/13/24 03:10 68/44 10/13/24 03:05 82 20 75/51 (59) 98 10/13/24 03:05 75/51 10/13/24 03:00 85 10 98 Mechanical Ventilator+ 0 100 100 10/13/24 03:00 99.2 85 10 72/44 (53) 98 99.2 10/13/24 03:00 72/44 10/13/24 03:00 72/44 10/13/24 02:57 86 10/13/24 02:45 92 20 175/108 (130) 100 100 10/13/24 02:44 173/92 10/13/24 02:37 99.2 82 14 173/92 (119) 97 99.2 Lab Test 10/13/24 05:46 10/13/24 04:46 10/13/24 03:52 10/13/24 03:47 Range/Units Troponin I High Sensitivity 39 *H 21 </=34 ng/L Lactic Acid Level 2.1 *H 0.4-2.0 mmol/L Blood Gas Specimen Type Arterial Blood Gas Sample Site Right brachial Blood Gas Patient Temperature 37.0 Arterial Blood Date Drawn [id number] Arterial Blood pH 7.233 *L 7.350-7.450 Arterial Blood Partial Pressure CO2 60.5 *H 32.0-45.0 mmHg Arterial Blood Partial Pressure O2 452.6 *H 83.0-108.0 mmHg Arterial Blood HCO3 24.9 21.0-28.0 mmol/L Arterial Blood Oxygen Saturation 100.0 H 94.0-98.0 % Arterial Blood Base Excess -4.0 L -2.0-3.0 mmol/L Arterial Blood Oxyhemoglobin 96.6 94.0-98.0 % Arterial Blood Carboxyhemoglobin 2.5 H 0.5-1.5 % Arterial Blood Methemoglobin 0.9 0.0-1.5 % Edwin Test N/a Blood Gas Total Hemoglobin 17.60 H 12.0-16.0 g/dL Blood Gas Set Respiration Rate 20.0 Blood Gas Modality Vent - ac Blood Gas Spontaneous Rate 20 FiO2 % 100.0 Blood Gas Tidal Volume 450.0 Blood Gas Spontaneous Tidal Volume 459 Blood Gas Inspiratory Pressure 32.0 Blood Gas PEEP or CPAP 5.0 Bl Gas Inspiratory/Expiratory Ratio 1:2.7 Blood Gas Critical Value Read Back Yes Blood Gas Notified Whom robert Hernandez Blood Gas Notified Time [id number] Blood Gas Notified By nayeli Gallagher Sodium Level 140 136-145 mmol/L Potassium Level 4.7 3.5-5.1 mmol/L Chloride Level 105 98-107 mmol/L Carbon Dioxide Level 24 20-31 mmol/L Anion Gap 11 5-15 Blood Urea Nitrogen 16 9-23 mg/dL Creatinine 1.58 H 0.550-1.02 mg/dL Glomerular Filtration Rate Calc 33 >90 mL/min BUN/Creatinine Ratio 10.1 10.0-20.0 Serum Glucose 206 H 74-106 mg/dL Calcium Level 9.5 8.7-10.4 mg/dL Total Bilirubin 0.6 0.2-1.0 mg/dL Aspartate Amino Transferase (AST) 174 H 13-40 U/L Alanine Aminotransferase (ALT) 134 H 7-40 U/L Alkaline Phosphatase 169 H 46-116 U/L Total Protein 6.9 5.7-8.2 g/dL Albumin 4.4 3.2-4.8 g/dL Lipase 48 12-53 U/L Test 10/13/24 02:53 10/13/24 02:46 Range/Units Urine Color Yellow Yellow Urine Clarity Clear Clear Urine pH 5.5 5.0-9.0 Urine Specific [place] 1.025 1.001-1.035 Urine Protein 1+ H Negative Urine Ketones Negative Negative Urine Blood Trace H Negative /uL Urine Nitrite Negative Negative Urine Bilirubin Negative Negative Urine Urobilinogen Normal Negative mg/dL Urine Leukocyte Esterase Negative Negative /uL Urine RBC 12 0 - 4 /hpf Urine Microscopic WBC 1 0-5 /HPF Urine Squamous Epithelial Cells None seen <5 /hpf Urine Bacteria None seen None Seen /hpf Urine Glucose 4+ H Normal mg/dL White Blood Count 19.8 H 4.4-10.8 10^3/uL Red Blood Count 7.32 H 4.0-5.20 10^6/uL Hemoglobin 17.2 H 12.2-16.2 g/dL Hematocrit 54.7 H 36.0-46.0 % Mean Corpuscular Volume 74.7 L 80.0-100.0 fL Mean Corpuscular Hemoglobin 23.5 L 28.0-32.0 pg Mean Corpuscular Hemoglobin Concent 31.5 L 32.0-36.0 g/dL Red Cell Distribution Width 20.7 H 11.8-14.3 % Platelet Count 624 H 140-450 10^3/uL Mean Platelet Volume 8.9 6.9-10.8 fL Neutrophils (%) (Auto) 45.0 37.0-80.0 % Lymphocytes (%) (Auto) 42.0 10.0-50.0 % Monocytes (%) (Auto) 7.0 0.0-12.0 % Eosinophils (%) (Auto) 5.1 0.0-7.0 % Basophils (%) (Auto) 0.9 0.0-2.0 % Neutrophils # (Auto) 8.9 H 1.6-8.6 10 ^3/uL Lymphocytes # (Auto) 8.3 H 0.4-5.4 10 ^3/uL Monocytes # (Auto) 1.4 H 0-1.3 10 ^3/uL Eosinophils # (Auto) 1.0 H 0-0.8 10 ^3/uL Basophils # (Auto) 0.2 0-0.2 10 ^3/uL Nucleated Red Blood Cells 0.2 % Prothrombin Time 20.1 H 9.3-11.8 sec Prothrombin Time INR 2.03 H 0.9-1.15 Activated Partial Thromboplast Time 48.8 H 24.5-34.5 SEC Lactic Acid Level 2.7 *H 0.4-2.0 mmol/L Troponin I High Sensitivity 13 </=34 ng/L B-Type Natriuretic Peptide 397.75 0-100 pg/mL Current Medications Medications (Trade) Dose Ordered Sig/Joey Route Start Time Stop Time Status Last Admin Midazolam HCl 50 ml @ 1 mls/hr Q24H IV 10/13/24 03:00 10/13/24 07:47 Norepinephrine Bitartrate 250 ml @ 3.75 mls/hr Q24H IV 10/13/24 03:00 10/13/24 03:00 Etomidate 10 mg ONCE ONCE IV 10/13/24 03:15 10/13/24 03:16 DC 10/13/24 02:44 Rocuronium Kouts 80 mg ONCE ONCE IV 10/13/24 03:15 10/13/24 03:16 DC 10/13/24 02:44 Sodium Chloride 1,000 ml @ 1,000 mls/hr Q1H ONCE IV 10/13/24 05:15 10/13/24 06:14 DC 10/13/24 05:45 Ceftriaxone Sodium 50 ml @ 100 mls/hr ONCE ONCE IV 10/13/24 05:15 10/13/24 05:44 DC 10/13/24 05:49 Propofol 100 ml @ 1.769 mls/ hr Q24H IV 10/13/24 06:30 10/13/24 06:40 Time of 1ST Reevaluation: 03:07 Reevaluation 1ST: Unchanged Patient Education/Counseling: Diagnosis, Other (altered, sedated), Pt Unresponsive Family Education/Counseling: No Family Present Sepsis focused exam: focus exam completed (In the initial resuscitation at least 30 mL/kg of IV crystalloid fluid was NOT given within the first 3 hr due to concerns of fluid overload), time: (299) Sepsis Sepsis Reasesment Focused Exam Sepsis focused exam: focus exam completed (In the initial resuscitation at least 30 mL/kg of IV crystalloid fluid was NOT given within the first 3 hr due to concerns of fluid overload), time: (299) Departure 1 Departure Time of Disposition: 09:39 ([place] Authorization to Admit to [facility]: [id number] with a acute respiratory failure but. Patient was intubated. Head CT was performed and there was question home with an outpatient had a head bleed. Repeat head CT showed no acute intracranial abnormalities. Patient will be admitted here to the ICU.) Impression: Primary Impression: Acute and chronic respiratory failure Additional Impressions: COPD (chronic obstructive pulmonary disease) Qualified Codes: J44.9 - Chronic obstructive pulmonary disease, unspecified Altered mental status Qualified Codes: R40.0 - Somnolence Metabolic encephalopathy Disposition: ADMITTED INPATIENT Admit to: ICU Condition: Critical Critical Care Note Critical Care Time?: Yes (35 min-critical care time only) Critical care comment: Total critical care time: Approximately 36 minutes Due to a high probability of clinically significant, life threatening deterioration, the patient required my highest level of preparedness to intervene emergently and I personally spent this critical care time directly and personally managing the patient. This critical care time included obtaining a history; examining the patient; pulse oximetry; ordering and review of studies; arranging urgent treatment with development of a management plan; evaluation of patient's response to treatment; frequent reassessment; and, discussions with other providers. This critical care time was performed to assess and manage the high probability of imminent, life-threatening deterioration that could result in multi-organ failure. It was exclusive of separately billable procedures and treating other p atients. Stability Stability form required: No Heart Score Heart Score: Heart Score Response (Comments) Value History Moderate Suspicious 1 EKG Repolarization Disturb 1 Age >65 2 Risk Factors 1 or 2 risk factors 1 Troponin Normal limit 0 Total 5 SUDHIR BERTRAND MD October 13, 2024 03:09 LAVON REINOSO MD October 13, 2024 09:40
[2024-10-13 03:15] LABS: Urine Bacteria None Seen /hpf (None Seen)
[2024-10-13 03:28] LABS: Basophils # (auto) 0.2 10 ^3/uL (0-0.2); Basophils % (auto) 0.9 % (0.0-2.0); Hemoglobin 17.2 g/dL (12.2-16.2); Monocytes # (auto) 1.4 10 ^3/uL (0-1.3)
[2024-10-13 03:30] LABS: Eosinophils % (auto) 5.1 % (0.0-7.0); Hematocrit 54.7 % (36.0-46.0); Lymphocytes # (auto) 8.3 10 ^3/uL (0.4-5.4); Mean Corpuscular Hemoglobin 23.5 pg (28.0-32.0); Mean Corpuscular Hgb Conc. 31.5 g/dL (32.0-36.0); Mean Corpuscular Volume 74.7 fL (80.0-100.0); Neutrophils # (auto) 8.9 10 ^3/uL (1.6-8.6); Nucleated Red Blood Cells % 0.2 %; Platelet Count (auto) 624 10^3/uL (140-450); Red Blood Cells 7.32 10^6/uL (4.0-5.20); Red Cell Distribution Width 20.7 % (11.8-14.3); White Blood Cell 19.8 10^3/uL (4.4-10.8)
[2024-10-13] MEDS: NOREPINEPHRINE 8 MG/250ML KIT 250 ML IV ONE (03:30)
[2024-10-13] MEDS: MIDAZOLAM DRIP 50 mg/50mL 50 ML IV ONE (03:31)
[2024-10-13 03:47] LABS: INR 2.03 (0.9-1.15); Partial Thromboplastin Time 48.8 SEC (24.5-34.5); Prothrombin Time 20.1 sec (9.3-11.8)
[2024-10-13 04:17] LABS: Urine Blood TRACE /uL (Negative); Urine Clarity Clear (Clear); Urine Color Yellow (Yellow); Urine Protein, UAD 1+ (Negative); Urine Specific Gravity 1.025 (1.001-1.035); Urine Squamous Epithelial Cell None Seen /hpf (<5); Urine Urobilinogen Normal (Negative); Urine WBC 1 /HPF (0-5); Urine pH 5.5 (5.0-9.0)
[2024-10-13 04:30] LABS: Lactic Acid w/Reflex 2.7 mmol/L (0.4-2.0)
--- NOTE | 2024-10-13 04:35 | DVH ---
Examination: CXRP Clinical Indication: SOB Comparison: None. Technique: Frontal radiograph of the chest was obtained. Findings: Patient is in slight rotation. Chronic appearing linear interstitial prominence and hyperlucency, likely from chronic lung disease. The left costophrenic angle is not fully covered in radiograph, however, there is no obvious pleural effusion in the visualized part. No pleural effusion on right side in current study. There is no pneumothorax. Endotracheal tube noted with its distal end located approximately 4.5 cm proximal to the marielena in ap propriate position. No evidence of cardiomegaly. Cardiac pacemaker noted on left side with intact leads. No acute osseous abnormality is seen. Impression: 1. No acute cardiopulmonary disease is seen. 2. Endotracheal tube noted with its distal end located approximately 4.5 cm proximal to the marielena i n appropriate position. Electronically Signed 10/13/2024 04:33 Karis Duran
[2024-10-13 05:00] LABS: Anion Gap 11 (5-15)
[2024-10-13 05:11] LABS: BUN/Creatinine Ratio 10.1 (10.0-20.0)
[2024-10-13 05:15] LABS: Alanine Aminotransferase 134 U/L (7-40); Albumin 4.4 g/dL (3.2-4.8); Alkaline Phosphatase 169 U/L (46-116); Aspartate Aminotransferase 174 U/L (13-40); Bilirubin, Total 0.6 mg/dL (0.2-1.0); Blood Urea Nitrogen 16 mg/dL (9-23); Calcium 9.5 mg/dL (8.7-10.4); Carbon Dioxide 24 mmol/L (20-31); Chloride 105 mmol/L (98-107); Glucose 206 mg/dL (74-106); Lipase 48 U/L (12-53); Potassium 4.7 mmol/L (3.5-5.1); Sodium 140 mmol/L (136-145); Total Protein 6.9 g/dL (5.7-8.2)
--- NOTE | 2024-10-13 05:27 | ECG ---
[facility] Test Date: 2024-10-13 Test Time: 02:57:24 Pat Name: RONN NAYLOR Department: ED Room: 0261 Gender: F Immunochemist: RONNY : 1945 Requested By: SUDHIR BERTRAND Order Number: [id number] Reading MD: Ermias Infante Measurements Intervals [place] Rate: 86 P: 86 NM: 149 QRS: 23 QRSD: 131 T: 175 QT: 401 QTc: 480 Interpretive Statements Sinus rhythm LVH with secondary repolarization abnormality Probable anterior infarct, age indeterminate Electronically Signed On 10-17-2024 11:46:34 PDT by Ermias Infante Please click the below link to view image of tracing.
[2024-10-13] MEDS: SODIUM CHLORIDE 0.9% 1,000 ML IV ONE (05:45)
[2024-10-13] MEDS: cefTRIAXone 1GM/50ML D5W 50 ML IV ONE (05:49)
[2024-10-13] MEDS: AZITHROMYCIN 500MG/ 250ML 250 ML IV ONE (06:12)
[2024-10-13] MEDS: PROPOFOL 100 ML IV SCH (06:40)
--- NOTE | 2024-10-13 06:41 | DVH ---
EXAM: CT Head Without Intravenous Contrast CLINICAL INDICATION: ALOC TECHNIQUE: Axial computed tomography images of the head/brain without intravenous contrast. This CT exam was performed using one or more of the following dose reduction techniques: automated exposure control, adjustment of the mA and/or kV according to patient size, and/or use of iterative reconstru ction technique. CONTRAST: COMPARISON: None FINDINGS: BRAIN AND EXTRA-AXIAL SPACES: The cerebral and cerebellar sulci are prominent consistent with brain atrophy. Areas of decreased attenuation in the deep cerebral white matter are consistent with small vessel ischemic/degenerative changes. No acute intracranial hemorrhage, midline shift or mass effec t. If symptoms persist, further evaluation with MRI is recommended. BONES/JOINTS: Unremarkable. No acute fracture. SOFT TISSUES: Unremarkable. SINUSES: Unremarkable as visualized. No acute sinusitis. MASTOID AIR CELLS: Unremarkable as visualized. No mastoid effusion. OTHER FINDINGS: . . IMPRESSION: 1. Generalized brain atrophy. 2. Small vessel ischemic/degenerative changes. 3. No acute intracranial hemorrhage, midline shift or mass effect. If symptoms persist, further eval uation with MRI is recommended.
--- NOTE | 2024-10-13 08:17 | DVH ---
EXAM: CT HEAD WITHOUT CONTRAST HISTORY: md request COMPARISON: CT HEAD WITHOUT CONTRAST on DOS: 10/13/24 TECHNIQUE: Axial images of the head were obtained and reformatted in coronal and sagittal planes. All CT scans at this medical facility are performed using dose modulation techniques as appropriate t o a performed exam including the following: Automated exposure control was utilized; adjustment of th e MA and/or KV according to patient size; and use of iterative reconstruction technique. CT Dose: CTDI volume is 52.71 mGy. Dose-length product is 845.14 mGy*cm FINDINGS: There is no evidence of acute intracranial hemorrhage, mass, mass effect midline shift. There is no h ydrocephalus or extra-axial fluid collection. There are moderate chronic microvascular ischemic stein es in the supratentorial white matter. [place]-white matter differentiation appears maintained. The visualized paranasal sinuses and mastoid air cells are clear. The calvarium is intact. IMPRESSION: 1. No acute intracranial process. HS:Y
[2024-10-13] MEDS ORDERED: ONDANSETRON HCL 4 MG/2 ML VIAL IV PRN (12:45)
[2024-10-13] MEDS ORDERED: ACETAMINOPHEN 325 MG TAB PO PRN (12:45)
[2024-10-13] MEDS ORDERED: NITROGLYCERIN 0.4 MG SL TAB SL PRN (12:45)
[2024-10-13] MEDS ORDERED: DEXTROSE (50%) 50ML SYRG IV PRN (12:45)
[2024-10-13] MEDS ORDERED: MORPHINE SULFATE INJ 2 MG/ml SYRG IV PRN (12:45)
--- NOTE | 2024-10-13 12:59 | DVHHP2 ---
History of Present Illness Reason for Visit: ALOC History of Present Illness Handler, Melody is an 79-year-old female with past medical history of CAD, hypertension, COPD, AFib, CHF, hypothyroidism, emphysema, COVID, PTCA x1, and ICD who presents to the ED with ALOC. Per patient's granddaughter Eduardo at bedside she states that she lives with her grandmother stays in separate rooms and states that she was short of breath last night and then was brought into the ED. Patient's daughter Alyssa is a [id number]. Called and spoke to daughter Alyssa she states that patient has a DNR order where there is only supposed to be a Chem code in place. However upon speaking to the daughter she states that patient can be intubated if it is only a slight infection or sepsis. Patient is a [facility] patient and daughter states that she has seems it was a thyroid storm that was occurring because [facility] had adjusted some medications in the TSH came back at 11. Patient's daughter Alyssa states that she was called to the room by her son to assist with her mother as she was having difficulty breathing. Alyssa states that she has cardiac events constantly and assumes that his AFib usually gives her aspirin gives her oxygen and usually goes away. She said this event yesterday her sats were 90% her heart rate was 71 and she was diaphoretic with pursed lipped breathing. Patient's daughter states that she gave her Duo nebs as well as placed to nasal cannula is 1 in her nose at 5 L and the other 1 in her mouth at 6 L with a total of 11. Alyssa stated the 11 minutes later her mom started to desat to about 81-82% and she was able to get her mom to lay back until EMS arrived. Patient's daughter states that there was a [facility] appointment that she was supposed to be at tomorrow for follow up of her labs. Patient's daughter states that she will bring the document in for the DNR code status. Cardiovascular: AFIB, CAD, CHF, HTN Pulmonary: COPD Endocrine: Hypothyroidism Past Medical History Emphysema COVID Past Surgical History: Other (PTCA x1 and ICD) Smoke: <1 pack per day ALCOHOL: none Drugs: None Lives: with Family Domestic Violence: Neg Review of Systems Respiratory: Shortness of breath Neurological: Other (ALOC) Allergies: Coded Allergies: Azithromycin (Unverified Allergy, Intermediate, 10/24/17) Meperidine (Unverified Allergy, Intermediate, 10/24/17) Medications Current Medications Medications Dose Ordered Sig/Joey Route Start Time Stop Time Status Last Admin Dose Admin Midazolam HCl 50 ml @ 1 mls/hr Q24H IV 10/13/24 03:00 10/13/24 07:47 5 MLS/HR Norepinephrine Bitartrate 250 ml @ 3.75 mls/hr Q24H IV 10/13/24 03:00 10/13/24 03:00 3.75 MLS/HR Propofol 100 ml @ 1.769 mls/ hr Q24H IV 10/13/24 06:30 10/13/24 06:40 1.769 MLS/HR Ondansetron HCl 4 mg Q4HP PRN IV 10/13/24 12:45 UNV Enoxaparin Sodium 40 mg DAILY SC 10/14/24 10:00 UNV Acetaminophen 650 mg Q6HP PRN PO 10/13/24 12:45 UNV Nitroglycerin 0.4 mg Q5MINP PRN SL 10/13/24 12:45 UNV Morphine Sulfate 2 mg Q30M PRN IV 10/13/24 12:45 UNV Diagnostic Test (Pha) 1 strip Q6HR 10/13/24 18:00 UNV Insulin Human Regular Q6HR SC 10/13/24 18:00 UNV Dextrose 50 ml UD PRN IV 10/13/24 12:45 UNV Exam Vital Signs Vital Signs Date Time Temp Pulse Resp B/P (MAP) Pulse Ox O2 Delivery O2 Flow Rate FiO2 10/13/24 12:10 77 20 102/56 (71) 97 35 10/13/24 11:45 98.4 98.4 10/13/24 08:00 Mechanical Ventilator+ 10/13/24 03:00 0 Cardiovascular: Regular rate, Normal S1, Normal S2 Abdominal: Soft Labs/Xrays Labs Test 10/13/24 05:46 10/13/24 04:46 10/13/24 03:52 10/13/24 03:47 Range/Units Troponin I High Sensitivity 39 *H </=34 ng/L Lactic Acid Level 2.1 *H 0.4-2.0 mmol/L Blood Gas Specimen Type Arterial Blood Gas Sample Site Right brachial Blood Gas Patient Temperature 37.0 Arterial Blood Date Drawn [id number] Arterial Blood pH 7.233 *L 7.350-7.450 Arterial Blood Partial Pressure CO2 60.5 *H 32.0-45.0 mmHg Arterial Blood Partial Pressure O2 452.6 *H 83.0-108.0 mmHg Arterial Blood HCO3 24.9 21.0-28.0 mmol/L Arterial Blood Oxygen Saturation 100.0 H 94.0-98.0 % Arterial Blood Base Excess -4.0 L -2.0-3.0 mmol/L Arterial Blood Oxyhemoglobin 96.6 94.0-98.0 % Arterial Blood Carboxyhemoglobin 2.5 H 0.5-1.5 % Arterial Blood Methemoglobin 0.9 0.0-1.5 % Edwin Test N/a Blood Gas Total Hemoglobin 17.60 H 12.0-16.0 g/dL Blood Gas Set Respiration Rate 20.0 Blood Gas Modality Vent - ac Blood Gas Spontaneous Rate 20 FiO2 % 100.0 Blood Gas Tidal Volume 450.0 Blood Gas Spontaneous Tidal Volume 459 Blood Gas Inspiratory Pressure 32.0 Blood Gas PEEP or CPAP 5.0 Bl Gas Inspiratory/Expiratory Ratio 1:2.7 Blood Gas Critical Value Read Back Yes Blood Gas Notified Whom robert Hernandez Blood Gas Notified Time [id number] Blood Gas Notified By nayeli Gallagher Sodium Level 140 136-145 mmol/L Potassium Level 4.7 3.5-5.1 mmol/L Chloride Level 105 98-107 mmol/L Carbon Dioxide Level 24 20-31 mmol/L Anion Gap 11 5-15 Blood Urea Nitrogen 16 9-23 mg/dL Creatinine 1.58 H 0.550-1.02 mg/dL Glomerular Filtration Rate Calc 33 >90 mL/min BUN/Creatinine Ratio 10.1 10.0-20.0 Serum Glucose 206 H 74-106 mg/dL Calcium Level 9.5 8.7-10.4 mg/dL Total Bilirubin 0.6 0.2-1.0 mg/dL Aspartate Amino Transferase (AST) 174 H 13-40 U/L Alanine Aminotransferase (ALT) 134 H 7-40 U/L Alkaline Phosphatase 169 H 46-116 U/L Total Protein 6.9 5.7-8.2 g/dL Albumin 4.4 3.2-4.8 g/dL Lipase 48 12-53 U/L Test 10/13/24 02:53 10/13/24 02:46 Range/Units Urine Color Yellow Yellow Urine Clarity Clear Clear Urine pH 5.5 5.0-9.0 Urine Specific Mclean 1.025 1.001-1.035 Urine Protein 1+ H Negative Urine Ketones Negative Negative Urine Blood Trace H Negative /uL Urine Nitrite Negative Negative Urine Bilirubin Negative Negative Urine Urobilinogen Normal Negative mg/dL Urine Leukocyte Esterase Negative Negative /uL Urine RBC 12 0 - 4 /hpf Urine Microscopic WBC 1 0-5 /HPF Urine Squamous Epithelial Cells None seen <5 /hpf Urine Bacteria None seen None Seen /hpf Urine Glucose 4+ H Normal mg/dL White Blood Count 19.8 H 4.4-10.8 10^3/uL Red Blood Count 7.32 H 4.0-5.20 10^6/uL Hemoglobin 17.2 H 12.2-16.2 g/dL Hematocrit 54.7 H 36.0-46.0 % Mean Corpuscular Volume 74.7 L 80.0-100.0 fL Mean Corpuscular Hemoglobin 23.5 L 28.0-32.0 pg Mean Corpuscular Hemoglobin Concent 31.5 L 32.0-36.0 g/dL Red Cell Distribution Width 20.7 H 11.8-14.3 % Platelet Count 624 H 140-450 10^3/uL Mean Platelet Volume 8.9 6.9-10.8 fL Neutrophils (%) (Auto) 45.0 37.0-80.0 % Lymphocytes (%) (Auto) 42.0 10.0-50.0 % Monocytes (%) (Auto) 7.0 0.0-12.0 % Eosinophils (%) (Auto) 5.1 0.0-7.0 % Basophils (%) (Auto) 0.9 0.0-2.0 % Neutrophils # (Auto) 8.9 H 1.6-8.6 10 ^3/uL Lymphocytes # (Auto) 8.3 H 0.4-5.4 10 ^3/uL Monocytes # (Auto) 1.4 H 0-1.3 10 ^3/uL Eosinophils # (Auto) 1.0 H 0-0.8 10 ^3/uL Basophils # (Auto) 0.2 0-0.2 10 ^3/uL Nucleated Red Blood Cells 0.2 % Prothrombin Time 20.1 H 9.3-11.8 sec Prothrombin Time INR 2.03 H 0.9-1.15 Activated Partial Thromboplast Time 48.8 H 24.5-34.5 SEC B-Type Natriuretic Peptide 397.75 0-100 pg/mL EXAM: CT HEAD WITHOUT CONTRAST HISTORY: md request COMPARISON: CT HEAD WITHOUT CONTRAST on DOS: 10/13/24 TECHNIQUE: Axial images of the head were obtained and reformatted in coronal and sagittal planes. All CT scans at this medical facility are performed using dose modulation techniques as appropriate to a performed exam including the following: Automated exposure control was utilized; adjustment of the MA and/or KV according to patient size; and use of iterative reconstruction technique. CT Dose: CTDI volume is 52.71 mGy. Dose-length product is 845.14 mGy*cm FINDINGS: There is no evidence of acute intracranial hemorrhage, mass, mass effect midline shift. There is no hydrocephalus or extra-axial fluid collection. There are moderate chronic microvascular ischemic changes in the supratentorial white matter. Barahona-white matter differentiation appears maintained. The visualized paranasal sinuses and mastoid air cells are clear. The calvarium is intact. IMPRESSION: 1. No acute intracranial process. EXAM: CT Head Without Intravenous Contrast CLINICAL INDICATION: ALOC TECHNIQUE: Axial computed tomography images of the head/brain without intr avenous contrast. This CT exam was performed using one or more of the following dose reduction techniques: automated exposure control, adjustment of the mA and/or kV according to patient size, and/or use of iterative reconstruction technique. CONTRAST: COMPARISON: None FINDINGS: BRAIN AND EXTRA-AXIAL SPACES: The cerebral and cerebellar sulci are prominent consistent with brain atrophy. Areas of decreased attenuation in the deep cerebral white matter are consistent with small vessel ischemic/degenerative changes. No acute intracranial hemorrhage, midline shift or mass effect. If symptoms persist, further evaluation with MRI is recommended. BONES/JOINTS: Unremarkable. No acute fracture. SOFT TISSUES: Unremarkable. SINUSES: Unremarkable as visualized. No acute sinusitis. MASTOID AIR CELLS: Unremarkable as visualized. No mastoid effusion. OTHER FINDINGS: . . IMPRESSION: 1. Generalized brain atrophy. 2. Small vessel ischemic/degenerative changes. 3. No acute intracranial hemorrhage, midline shift or mass effect. If symptoms persist, further evaluation with MRI is recommended. Examination: CXRP Clinical Indication: SOB Comparison: None. Technique: Frontal radiograph of the chest was obtained. Findings: Patient is in slight rotation. Chronic appearing linear interstitial prominence and hyperlucency, likely from chronic lung disease. The left costophrenic angle is not fully covered in radiograph, however, there is no obvious pleural effusion in the visualized part. No pleural effusion on right side in current study. There is no pneumothorax. Endotracheal tube noted with its distal end located approximately 4.5 cm proximal to the marielena in appropriate position. No evidence of cardiomegaly. Cardiac pacemaker noted on left side with intact leads. No acute osseous abnormality is seen. Impression: 1. No acute cardiopulmonary disease is seen. 2. Endotracheal tube noted with its distal end located approximately 4.5 cm proximal to the marielena in appropriate position. Assessment/Plan Assessment/Plan Assessment Acute encephalopathy Acute hypoxic respiratory failure Leukocytosis rule out sepsis CHRISTINE Diabetes type 2 History of CAD History of hypertension History of COPD History of emphysema History of AFib History of CHF History of hypothyroidism History of COVID History of PTCA x1 History of ICD Plan Admit to ICU Vasopressors to keep maps greater than 65 Sedation Intubated on vent IV antibiotics-ceftriaxone + azithromycin Chest x-ray noted CT head noted Chest x-ray noted Trend troponins Lactic level Childress catheter Urine culture NS 1 L given ED UA BNP Blood cultures PT/PTT Lipase ABG NPO D-dimer TSH Free T4 Home medications reconciled DVT prophylaxis-Lovenox PUD prophylaxis-PPIs Discussed plan of care with patient's granddaughter and nurse Plan discussed with: Daughter, Other My Orders Orders - 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 Procedure Category Date Status Time Admit ADMIT 10/13/24 Transmitted 12:31 Allergies QUINTON 10/13/24 In Process 12:31 Code Status CODE 10/13/24 Transmitted 12:31 Ondansetron Hcl PHA 10/13/24 Logged (Zofran) 12:45 Enoxaparin Sodium PHA 10/14/24 Logged (Lovenox) 10:00 Complete Blood Count LAB 10/14/24 Verified 04:00 Comprehensive LAB 10/14/24 Verified Metabolic Panel 04:00 Npo (Nothing By DIET 10/13/24 Transmitted Mouth) Diet Lunch Acetaminophen Tablet PHA 10/13/24 Logged (Tylenol Tablet) 12:45 Nitroglycerin PHA 10/13/24 Logged Sublingual (Ntrostat 12:45 Morphine Sulfate PHA 10/13/24 Logged Injection 12:45 Stat Ekg For Chest QUINTON 10/13/24 In Process Pain 12:31 Notify Of Changes QUINTON 10/13/24 In Process From Base 12:31 Field Cane Scaler For QUINTON 10/13/24 In Process 24 Hours 12:31 Emergency Dysrhythmia QUINTON 10/13/24 In Process Protocol 12:31 Rhythm Strips Once QUINTON 10/13/24 In Process Every Shift 12:31 Oxygen By Nasal RT 10/13/24 Transmitted Cannula 12:31 Glucose Blood PHA 10/13/24 Logged (Accu-Chek Comfort 18:00 Insulin R (Human) PHA 10/13/24 Logged (Insulin R) 18:00 Dextrose 50% Syringe PHA 10/13/24 Logged 12:45 Hemoglobin A1c LAB 10/13/24 In Process 12:31 Urine Bacterial MATTI 10/13/24 In Process Culture 12:33 Aspirin Enteric PHA 10/14/24 Transmitted Coated Tablet 10:00 Atorvastatin (Lipitor) PHA 10/13/24 Transmitted 22:00 Cholecalciferol PHA 10/14/24 Transmitted Tablet (Vitamin D3 10:00 Empagliflozin PHA 10/14/24 Transmitted (Jardiance) 10:00 Furosemide Tablet PHA 10/14/24 Transmitted (Lasix Tablet) 10:00 Thyroid (Argyle PHA 10/14/24 Transmitted Thyroid) 10:00 (Nf) Bisoprolol PHA 10/13/24 Transmitted Fumarate 22:00 (Nf) Dabigatran PHA 10/13/24 Transmitted Etexilate Mesylate 22:00 (NF) PHA 10/14/24 Transmitted Sacubitril-Valsartan 10:00 Date of Service: October 13, 2024 Billing Provider: MAEVE LUNA Common Visit Codes: [id number] INP/OBS CARE (HIGH) MAEVE LUNA October 13, 2024 12:59
[2024-10-13] MEDS ORDERED: AZITHROMYCIN 500MG/ 250ML 250 ML IV SCH (13:30)
[2024-10-13 13:32] LABS: Free T3 1.75 pg/mL (2.3-4.2); Free T4 (Free Thyroxine) 0.56 ng/dL (0.89-1.76)
[2024-10-13 13:57] LABS: Albumin 3.9 g/dL (3.2-4.8); Anion Gap 9 (5-15); BUN/Creatinine Ratio 16.7 (10.0-20.0); Bilirubin, Total 0.6 mg/dL (0.2-1.0); Blood Urea Nitrogen 20 mg/dL (9-23); Calcium 9.3 mg/dL (8.7-10.4); Carbon Dioxide 25 mmol/L (20-31); Creatine Kinase IFCC 53 U/L (34-145); Sodium 142 mmol/L (136-145); Total Protein 5.8 g/dL (5.7-8.2)
[2024-10-13 13:58] LABS: Alanine Aminotransferase 99 U/L (7-40); Alkaline Phosphatase 131 U/L (46-116); Aspartate Aminotransferase 86 U/L (13-40); Chloride 108 mmol/L (98-107); Glucose 126 mg/dL (74-106); Potassium 5.3 mmol/L (3.5-5.1)
[2024-10-13] MEDS: cefTRIAXone 1GM/50ML D5W 50 ML IV SCH (14:46)
[2024-10-13] MEDS: EMPAGLIFLOZIN 10 MG TAB PO SCH (14:46)
--- NOTE | 2024-10-13 14:54 | DVHSR ---
APPROVED REPORT EXAM: Two-dimensional and M-mode echocardiogram with Doppler and color Doppler. Blood Pressure: 102/56 mmHg INDICATION SOB RISK FACTORS Height: 69, Weight: 130 DIMENSIONS LVDd4.4 (3.8-5.7cm)LA (2D)4.2 (1.9-4.0cm)Aortic Root (2.0-3.7cm) LVDs3.9 (2.5-4.0cm)LA (MM) (1.9-4.0cm)Aortic Cusp Exc (1.5-2.0cm) EF (%) 25.0 (55-70%)Rt. Atrium3.4 (1.9-4.0cm)Asc. Aorta cm Mitral Valve MitralMitral Stenosis E wave0.43m/sMV Mean GR.mmHg A wave0.62m/sMV Peak GR.mmHg E/A ratio0.72D MVAcm2 DECEL [id number] 1/2 Timems Aortic Valve Aortic ValveAortic Stenosis V10.72m/Jeff Mean GR.2mmHg V20.86m/Jeff Peak GR.3mmHg Pulmonic Valve V21.10m/s Tricuspid Valve TR Velocity1.93m/s [id number] Other Information Technically limited study due to patient on a vent. 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
--- NOTE | 2024-10-13 16:49 | DVH ---
CHEST RADIOGRAPH Indication: CENTRAL LINE INITIATION Technique: Single frontal view of the chest was obtained Comparison: XY CHEST PORTABLE on DOS: 10/13/24, XY CHEST PORTABLE on DOS: 02/23/24, XY CHEST PORTABLE o n DOS: 02/19/24, CHEST PORTABLE on DOS: 02/01/21, CXRP on DOS: 02/01/21 FINDINGS: Lines and Tubes: Endotracheal tube and nasogastric tube are in satisfactory position. Right internal jugular CVC catheter with tip in superior vena cava. Lungs: No focal consolidation. Pulmonary venous congestion Pleura: No effusion. No pneumothorax. Cardiomediastinal contours: Cardiomegaly. Left-sided AICD with leads in right atrium and right ventr icle. Uncoiling and atherosclerotic change thoracic aorta. Bones: Old fracture of the left humeral head with involvement of the glenohumeral joint. Mild osteope frandy. IMPRESSION: 1. Cardiomegaly with pulmonary venous congestion 2. Support lines are in satisfactory position.
[2024-10-13 17:12] LABS: Base Excess -1.5 mmol/L (-2.0-3.0)
--- NOTE | 2024-10-13 17:44 | DVHNC2 ---
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 of well surveying engineer ([place] resident) Indication: Hypotension, Volume resuscitation Room prepared for procedure: Yes Rustic Terrazzo Setter performed hand hygien: Yes Maximal sterile barrier precau: Mask/Eye shield, Sterile gown, Cap, Sterlie gloves, Large sterlie drape Skin Preparation: Chlorhexidine gluconate, Providine iodine Skin preparation completely dr: Yes Insertion site: Right, Internal jugular Central line catheter type: [id number] dialysis Number of lumens: 3 Central line exchanged over a: No Antiseptic ointment applied to: Yes Post Assessment: Chest X-Ray, No Pneumothorax Informed consent obtained: Yes Risks/benefits/alt described: Yes Notes Procedure note: A time out was performed. My hands were washed immediately prior to the procedure. I wore a surgical cap, mask with protective eyewear, full gown and sterile gloves throughout the procedure. The patient was placed in Trendelenburg position. RIGHT chest region was prepped using chlorhexidine scrub and draped in sterile fashion using a full drape and sterile probe cover and sterile gel employed. The medial and lateral heads of the sternocleidomastoid muscle were identified as was the carotid pulse. The Internal Jugular vein was identified using the ultrasound. Anesthesia was achieved over the vein using 1% lidocaine. Using real-time out of plane guidance, the introducer needle was inserted into the Internal Jugular vein under direct ultrasound visualization. Venous blood was withdrawn. The syringe was removed and a guidewire was advanced into the introducer needle. The guidewire was visualized in the Internal Jugular Vein by ultrasound. A small incision was made at the skin surface with a scalpel and the introducer needle was exchanged for a dilator over the guidewire. After appropriate dilation was obtained, the dilator was exchanged over the wire for a _ central venous catheter. The wire was removed and the catheter was sutured in [address] A sterile sorbaview shield was placed over the catheter at the insertion site. The patient tolerated the procedure without any hemodynamic compromise. At time of procedure completion, all ports aspirated and flushed properly. Post-procedure chest x-ray excluded pneumothorax. Estimated blood loss is less than [address] Crowder Date of Service: October 13, 2024 Billing Provider: ED CROWDER MD Common Visit Codes: PROCEDURE ONLY Procedure Codes: [id number] NON-TUNNEL CV CATH HARMAN CHRISTIAN October 13, 2024 17:44 ED CROWDER MD October 16, 2024 21:39
[2024-10-13] MEDS: ACCU-CHEK COMFORT CURVE STRIP VI SCH (18:00)
[2024-10-13] MEDS: InsuLIN REG 1unit/0.01ml Soln (100units/ml) SC SCH (18:00)
--- NOTE | 2024-10-13 19:30 | DVH ---
CHEST RADIOGRAPH Indication: Rule out right pneumothorax vs skin fold Technique: Single frontal view of the chest was obtained COMPARISON: XY CHEST XRAY 1 VIEW on DOS: 10/13/24, XY CHEST PORTABLE on DOS: 10/13/24, XY CHEST PORTABL E on DOS: 02/23/24, XY CHEST PORTABLE on DOS: 02/19/24, CHEST PORTABLE on DOS: 02/01/21 FINDINGS: Lines and Tubes: Endotracheal tube, enteric catheter and right central venous catheter in satisfactor y position. Left chest wall AICD. Lungs: Congestion Pleura: No effusion. No pneumothorax. Cardiomediastinal contours: Unremarkable Bones: Unremarkable IMPRESSION: Lines and tubes in satisfactory position. No significant interval change.
[2024-10-13] MEDS: BISOPROLOL FUMARATE 5 MG PO SCH (22:00)
[2024-10-13] MEDS: DABIGATRAN 75 MG CAP PO SCH (22:00)
[2024-10-13] MEDS: ATORVASTATIN 20 MG TAB PO SCH (22:51)
[2024-10-14] VITALS (108 sets, daily range): BP systolic 82–140; BP diastolic 49–87; PULSE 68–93; RESP 10–26; TEMP 97.7–100.4; O2SAT 94–100
[2024-10-14 05:14] LABS: Basophils # (auto) 0.1 10 ^3/uL (0-0.2); Eosinophils # (auto) 0.2 10 ^3/uL (0-0.8); Eosinophils % (auto) 0.9 % (0.0-7.0); Monocytes # (auto) 1.5 10 ^3/uL (0-1.3)
[2024-10-14 05:17] LABS: Basophils % (auto) 0.6 % (0.0-2.0); Hematocrit 50.1 % (36.0-46.0); Hemoglobin 16.1 g/dL (12.2-16.2); Lymphocytes # (auto) 1.7 10 ^3/uL (0.4-5.4); Mean Corpuscular Hemoglobin 23.2 pg (28.0-32.0); Mean Corpuscular Hgb Conc. 32.2 g/dL (32.0-36.0); Mean Corpuscular Volume 72.1 fL (80.0-100.0); Monocytes % (auto) 9.3 % (0.0-12.0); Neutrophils # (auto) 13.2 10 ^3/uL (1.6-8.6); Neutrophils % (auto) 79.2 % (37.0-80.0); Platelet Count (auto) 410 10^3/uL (140-450); Red Blood Cells 6.95 10^6/uL (4.0-5.20); Red Cell Distribution Width 19.6 % (11.8-14.3); White Blood Cell 16.6 10^3/uL (4.4-10.8)
[2024-10-14 05:38] LABS: Albumin 3.8 g/dL (3.2-4.8); Anion Gap 9 (5-15); BUN/Creatinine Ratio 23.5 (10.0-20.0); Bilirubin, Total 0.7 mg/dL (0.2-1.0); Carbon Dioxide 27 mmol/L (20-31); Chloride 106 mmol/L (98-107); Glucose 101 mg/dL (74-106); Potassium 4.6 mmol/L (3.5-5.1); Sodium 142 mmol/L (136-145); Total Protein 5.8 g/dL (5.7-8.2)
[2024-10-14 05:41] LABS: Alanine Aminotransferase 72 U/L (7-40); Alkaline Phosphatase 125 U/L (46-116); Aspartate Aminotransferase 49 U/L (13-40); Blood Urea Nitrogen 23 mg/dL (9-23)
[2024-10-14] MEDS: THYROID 60 MG TAB PO SCH (05:58)
--- NOTE | 2024-10-14 06:04 | DVH ---
EXAM: XR Chest, 1 View CLINICAL INDICATION: INTUBATED TECHNIQUE: Frontal view of the chest. COMPARISON: XY CHEST XRAY 1 VIEW on DOS: 10/13/24, XY CHEST XRAY 1 VIEW on DOS: 10/13/24, XY CHEST PO RTABLE on DOS: 10/13/24, XY CHEST PORTABLE on DOS: 02/23/24, XY CHEST PORTABLE on DOS: 02/19/24 FINDINGS: LUNGS AND PLEURAL SPACES: Interstitial opacity. HEART: Unremarkable. No cardiomegaly. MEDIASTINUM: Unremarkable. Normal mediastinal contour. BONES/JOINTS: Unremarkable. No acute fracture. SOFT TISSUES: Probable right skin fold as peripheral lung markings are noted fatty lucency. TUBES, LINES AND DEVICES: Left-sided cardiac pacemaker. The endotracheal tube (ETT) is in satisfac tory position. Enteric tube tip cannot be seen but is below the diaphragm. OTHER FINDINGS: . IMPRESSION: 1. Interstitial opacity. 2. Probable right skin fold as peripheral lung markings are noted fatty lucency.
[2024-10-14] MEDS: ENOXAPARIN SOD 40 MG/0.4 ML SYRINGE SC SCH (07:58)
[2024-10-14] MEDS: FUROSEMIDE 20 MG TAB PO SCH (07:58)
[2024-10-14] MEDS: CHOLECALCIFEROL (VITD3) 1,000UNIT=25mCg TAB PO SCH (07:58)
[2024-10-14] MEDS: SACUBITRIL VALSARTAN PO SCH (07:59)
[2024-10-14] MEDS: ASPirin-EC 81 mg tab PO SCH (07:59)
[2024-10-14 12:44] LABS: Base Excess -0.8 mmol/L (-2.0-3.0)
[2024-10-14] MEDS ORDERED: HYDROCORTISONE SOD SUCC 100 MG/2ML INJ VIAL IV SCH (14:00)
[2024-10-14] MEDS: D5W/SOD CHLO 0.9% 1,000 ML IV SCH (14:37)
[2024-10-14] MEDS: LEVOTHYROXINE SODIUM 100 MCG/5 ML INJ IV ONE (14:37)
--- NOTE | 2024-10-14 15:56 | DVHINCON2 ---
Date of service: October 14, [address] Garcia Reason for Consultation Critical care management History of Present Illness History Source: Patient, RN Notes, MD Notes Exam Limitations: Clinical condition HPI Patient is an 79-year old lady with a history of hypothyroidism s/p replacement therapy at [facility] however unknown compliance who presented with altered mental status. Was seen in the emergency room where she was noted to desaturate to 80% and the patient was emergently intubated and placed on mechanical ventilation. Lab work was reviewed and was found to have markedly elevated TSH level, ? myxedema coma. We were asked to see patient for critical care management. Home Meds Active Scripts Prednisone (Prednisone) 20 Mg Tab, 20 MG PO QAM for 6 Days, #12 MG Prov:ED CROWDER MD 02/23/24 Levofloxacin Hemihydrate (LEVAQUIN 500 MG) 500 Mg Tab, 500 MG PO DAILY for 5 Days, #5 TAB Prov:ED CROWDER MD 02/23/24 Empagliflozin (Jardiance) 10 Mg Tab, 10 MG PO DAILY for 30 Days, #30 TAB 2 Refills Prov:ED CROWDER MD 02/23/24 Atorvastatin Calcium (ATORVASTATIN CALCIUM) 20 Mg Tab, 20 MG PO HS for 30 Days, #30 TAB Prov:MARK BO MD 01/28/20 Reported Medications Thyroid (Niva Thyroid) 120 Mg Tab, 120 MG PO DAILY, TAB 10/14/24 Sacubitril-Valsartan (Entresto 97-103 mg) 1 Tab Tab, 0.5 TAB PO BID, TAB 10/14/24 Risedronate Sodium (Actonel) 35 Mg Tab, 5 MG PO QAM, TAB 10/14/24 Empagliflozin (Jardiance) 10 Mg Tab, 12.5 MG PO DAILY, TAB 10/14/24 Aspirin (Aspir-Low) 81 Mg Tab, 162 MG PO DAILY for 30 Days, MG 10/14/24 Ciclesonide (Alvesco) 160 Mcg/Act Aer, 160 MCG IN BID, AER 10/14/24 Ipratropium Pitts (Ipratropium Pitts) 0.03 % Spr, 0.03 % NA BID, #1 SPRAY 10/14/24 Tiotropium [place]-Olodaterol (Stiolto Respimat 2.5-2.5 Mcg/Act) 1 Aer Aer, AER IN UD for 90 Days, #12 02/22/24 Albuterol Sulfate (Albuterol Sulfate Hfa) 108 Mcg/Act Aer, MCG IN UD for 90 Days, #20.1 02/22/24 Bisoprolol Fumarate (Bisoprolol Fumarate) 5 Mg Tab, 1 TAB PO BID 02/19/24 Sertraline HCl (Sertraline HCl) 50 Mg Tab, 1 TAB PO DAILY 02/19/24 Dabigatran Etexilate Mesylate (Pradaxa) 150 Mg Cap, 1 CAP PO BID 02/19/24 Sacubitril-Valsartan (Entresto 97-103 mg) 1 Tab Tab, 1 TAB PO DAILY 02/19/24 Fluticasone Propionate (Nasal) (Fluticasone Propionate) 50 Mcg/Act Spr, SPRAY AYDEE UD for 60 Days, #32 02/19/24 Losartan Potassium (Losartan Potassium) 25 Mg Tab, 25 MG PO DAILY for 30 Days, MG 02/02/21 Cholecalciferol (VITAMIN D-3) 1,000 Unit Tab, 1000 UNIT PO DAILY, TAB 02/02/21 Furosemide (Furosemide) 20 Mg Tab, 20 MG PO DAILY for 30 Days, MG 02/02/21 Carvedilol (Carvedilol) 6.25 Mg Tab, 6.25 MG PO Q12HR for 30 Days, MG 02/02/21 Prednisone (Prednisone) 5 Mg Tab, 5 MG PO QAM, TAB 02/02/21 Discontinued Reported Medications Aspirin (Aspir-Low) 81 Mg Tab, 81 MG PO DAILY for 30 Days, MG 02/02/21 Thyroid ([place] Thyroid) 60 Mg Tab, 90 MG PO DAILY, TAB 12/31/19 Past Medical History Cardiac: No pertinent Hx Pulmonary: No pertinent Hx Central Nervous System: No pertinent Hx GI: No pertinent Hx Hemotology/Oncology: No pertinent Hx Hepatobiliary: No pertinent Hx Psychiatric: No pertinent Hx Musculoskeletal: No pertinent Hx Rheumotologic: No pertinent Hx Infectious Disease: No peritnent Hx ENT: No pertinent Hx Renal/: No pertinent Hx Endocrine: Hypothyroidism Dermatology: No pertinent Hx Family History: CAD Patient Family History: Cardiovascular disease G8 MOTHER Chronic obstructive pulmonary disease G8 FATHER FH: hyperthyroidism G8 MOTHER Smoker: No Hx (Negative) Alocohol: None Drugs: None Lives with: With family Domestic Violence: Neg H&P Exam Vital Signs Vital Signs Date Time Temp Pulse Resp B/P (MAP) Pulse Ox O2 Delivery O2 Flow Rate FiO2 10/14/24 14:45 98.8 89 21 104/71 (82) 96 209.8 10/14/24 14:00 35 10/14/24 08:00 Mechanical Ventilator+ 10/13/24 03:00 0 General Appeara: Well developed, Well nourished, Normal Appearance Head Exam: Normal inspection Neck Exam: Normal inspection, Non-tender, Normal alignment Eye Exam: bilateral eye Normal inspection, bilateral eye PERRL, bilateral eye EOMI Ear Exam: bilateral ear Auricle normal, bilateral ear Canal normal, bilateral ear TM normal Nasal Exam: Normal inspection Mouth: Normal Inspection Pulmonary/Respiratory: Normal inspection, Normal breath sounds, Chest non- tender, Lungs clear Cardiovascular/Chest: Normal inspection, Regular rate, Normal Rhythm Peripheral Pulses: 4+ Radial (R), 4+ Radial (L), 4+ Brachial (R), 4+ Brachial (L) Abdominal Exam: Normal bowel sounds Labs/Xrays Labs Test 10/14/24 12:40 10/14/24 11:09 10/14/24 04:38 10/13/24 13:03 Range/Units Blood Gas Specimen Type Arterial Blood Gas Sample Site Right radial Blood Gas Patient Temperature 37.0 Arterial Blood Date Drawn [id number] Arterial Blood pH 7.365 7.350-7.450 Arterial Blood Partial Pressure CO2 44.6 32.0-45.0 mmHg Arterial Blood Partial Pressure O2 76.2 L 83.0-108.0 mmHg Arterial Blood HCO3 24.9 21.0-28.0 mmol/L Arterial Blood Oxygen Saturation 95.7 94.0-98.0 % Arterial Blood Base Excess -0.8 -2.0-3.0 mmol/L Arterial Blood Oxyhemoglobin 93.7 L 94.0-98.0 % Arterial Blood Carboxyhemoglobin 1.5 0.5-1.5 % Arterial Blood Methemoglobin 0.6 0.0-1.5 % Edwin Test Modified Blood Gas Total Hemoglobin 17.50 H 12.0-16.0 g/dL Blood Gas Set Respiration Rate 20.0 Blood Gas Modality Vent - ac FiO2 % 35.0 Blood Gas Tidal Volume 450.0 Blood Gas PEEP or CPAP 5.0 POC Glucose 99 70-106 mg/dl White Blood Count 16.6 H 4.4-10.8 10^3/uL Red Blood Count 6.95 H 4.0-5.20 10^6/uL Hemoglobin 16.1 12.2-16.2 g/dL Hematocrit 50.1 H 36.0-46.0 % Mean Corpuscular Volume 72.1 L 80.0-100.0 fL Mean Corpuscular Hemoglobin 23.2 L 28.0-32.0 pg Mean Corpuscular Hemoglobin Concent 32.2 32.0-36.0 g/dL Red Cell Distribution Width 19.6 H 11.8-14.3 % Platelet Count 410 140-450 10^3/uL Mean Platelet Volume 8.7 6.9-10.8 fL Neutrophils (%) (Auto) 79.2 37.0-80.0 % Lymphocytes (%) (Auto) 10.0 10.0-50.0 % Monocytes (%) (Auto) 9.3 0.0-12.0 % Eosinophils (%) (Auto) 0.9 0.0-7.0 % Basophils (%) (Auto) 0.6 0.0-2.0 % Neutrophils # (Auto) 13.2 H 1.6-8.6 10 ^3/uL Lymphocytes # (Auto) 1.7 0.4-5.4 10 ^3/uL Monocytes # (Auto) 1.5 H 0-1.3 10 ^3/uL Eosinophils # (Auto) 0.2 0-0.8 10 ^3/uL Basophils # (Auto) 0.1 0-0.2 10 ^3/uL Nucleated Red Blood Cells 0.0 % Sodium Level 142 136-145 mmol/L Potassium Level 4.6 3.5-5.1 mmol/L Chloride Level 106 98-107 mmol/L Carbon Dioxide Level 27 20-31 mmol/L Anion Gap 9 5-15 Blood Urea Nitrogen 23 9-23 mg/dL Creatinine 0.98 0.550-1.02 mg/dL Glomerular Filtration Rate Calc 58 >90 mL/min BUN/Creatinine Ratio 23.5 H 10.0-20.0 Serum Glucose 101 74-106 mg/dL Calcium Level 10.0 8.7-10.4 mg/dL Total Bilirubin 0.7 0.2-1.0 mg/dL Aspartate Amino Transferase (AST) 49 H 13-40 U/L Alanine Aminotransferase (ALT) 72 H 7-40 U/L Alkaline Phosphatase 125 H 46-116 U/L Troponin I High Sensitivity 18 </=34 ng/L Total Protein 5.8 5.7-8.2 g/dL Albumin 3.8 3.2-4.8 g/dL D-Dimer, Quantitative 0.41 0.0-0.49 mg/L FEU Creatine Kinase 53 34-145 U/L Test 10/13/24 04:46 10/13/24 03:52 10/13/24 03:47 10/13/24 02:53 Range/Units Lactic Acid Level 2.1 *H 0.4-2.0 mmol/L Blood Gas Spontaneous Rate 20 Blood Gas Spontaneous Tidal Volume 459 Blood Gas Inspiratory Pressure 32.0 Bl Gas Inspiratory/Expiratory Ratio 1:2.7 Blood Gas Critical Value Read Back Yes Blood Gas Notified Whom robert Hernandez Blood Gas Notified Time [id number] Blood Gas Notified By nayeli Gallagher Lipase 48 12-53 U/L Urine Color Yellow Yellow Urine Clarity Clear Clear Urine pH 5.5 5.0-9.0 Urine Specific [place] 1.025 1.001-1.035 Urine Protein 1+ H Negative Urine Ketones Negative Negative Urine Blood Trace H Negative /uL Urine Nitrite Negative Negative Urine Bilirubin Negative Negative Urine Urobilinogen Normal Negative mg/dL Urine Leukocyte Esterase Negative Negative /uL Urine RBC 12 0 - 4 /hpf Urine Microscopic WBC 1 0-5 /HPF Urine Squamous Epithelial Cells None seen <5 /hpf Urine Bacteria None seen None Seen /hpf Urine Glucose 4+ H Normal mg/dL Test 10/13/24 02:46 Range/Units Prothrombin Time 20.1 H 9.3-11.8 sec Prothrombin Time INR 2.03 H 0.9-1.15 Activated Partial Thromboplast Time 48.8 H 24.5-34.5 SEC Hemoglobin A1c 5.2 <5.7 % A1C B-Type Natriuretic Peptide 397.75 0-100 pg/mL Thyroid Stimulating Hormone (TSH) 61.27 H 0.55-4.78 uIU/mL Free Thyroxine (T4) Calculated 0.56 L 0.89-1.76 ng/dL Free Triiodothyronine (T3) pg/mL 1.75 L 2.3-4.2 pg/mL Microbiology Date/Time Source Procedure Growth Status 10/13/24 17:20 Nose MRSA Screen - Final Complete 10/13/24 02:53 Urine - [place] Urine Culture - Preliminary Resulted 10/13/24 02:53 Blood Blood Culture - Preliminary NO GROWTH AFTER 24 HOURS OF INCUBATION. Resulted Assessment/Plan Plan Impression Acute hypoxemic respiratory failure Pleural effusions- small Altered mental status Hypothyroidism Pneumonia Patient seen and examined in JOANNE Events On mechanical ventilation S/p intubation PEEP 5, FiO2 35% Labs and imaging reviewed Chest x-ray shows interstitial opacities bilaterally, possible pneumonia, hyperinflated lungs and small pleural effusions Initial ABG reviewed pH7.23, pCO2 60, pO2 452 Consistent with respiratory acidosis Management Vent support Titrate to maintain sats 90% or above Sedation for vent synchrony Antibiotics Bronchodilators Stress-dose steroids for renal insufficiency Hydrocortisone 100mg TID Synthroid 100mcg IV daily Monitor renal function Monitor electrolytes Supplement as needed Pressors as needed for hemodynamic support To maintain a mean arterial pressure of 65 mmHg DVT prophylaxis Critical care time 35 minutes Plan discussed with: Other (Rn) GABRIEL ALVARADO MD October 14, 2024 15:56
[2024-10-14] MEDS ORDERED: IPRA0.03 (17:04)
[2024-10-14] MEDS ORDERED: CICL160A2 IN (17:05)
[2024-10-14] MEDS ORDERED: EMPA1TAB PO (17:16)
[2024-10-14] MEDS ORDERED: RISE35TA PO (17:17)
[2024-10-14] MEDS ORDERED: SACU1TAB4 PO (17:18)
[2024-10-14] MEDS ORDERED: THYR120T14 PO (17:36)
--- NOTE | 2024-10-14 18:05 | DVHPN2 ---
Subjective intubated and sedated Changes from previous H/P or p: No Changes Respiratory: Shortness of breath Objective Vitals Vital Signs Date Time Temp Pulse Resp B/P (MAP) Pulse Ox O2 Delivery O2 Flow Rate FiO2 10/14/24 17:30 98.4 71 20 96/58 (71) 97 209.1 10/14/24 16:14 35 10/14/24 08:00 Mechanical Ventilator+ 10/13/24 03:00 0 Intake/Output Intake and Output 10/14/24 07:00 Intake Total 508.672 ml Output Total 300 ml Balance 208.672 ml Intake Oral 0 ml IV Total 508.672 ml Tube Feeding 0 ml Output Urine Total 300 ml Stool Total 0 ml General Appearance: Other (intubated and sedated) Lungs: Clear to auscultation Cardiovascular: Regular rate, Normal S1, Normal S2 Abdomen: Normal bowel sounds Medications Current Medications Medications Dose Ordered Sig/Joey Route Start Time Stop Time Status Last Admin Dose Admin Midazolam HCl 50 ml @ 1 mls/hr Q24H IV 10/13/24 03:00 10/14/24 11:09 5 MLS/HR Norepinephrine Bitartrate 250 ml @ 3.75 mls/hr Q24H IV 10/13/24 03:00 10/13/24 22:53 11.25 MLS/HR Propofol 100 ml @ 1.769 mls/ hr Q24H IV 10/13/24 06:30 10/14/24 17:37 10.614 MLS/HR Ondansetron HCl 4 mg Q4HP PRN IV 10/13/24 12:45 Enoxaparin Sodium 40 mg DAILY SC 10/14/24 10:00 10/14/24 07:58 40 MG Acetaminophen 650 mg Q6HP PRN PO 10/13/24 12:45 Nitroglycerin 0.4 mg Q5MINP PRN SL 10/13/24 12:45 Morphine Sulfate 2 mg Q30M PRN IV 10/13/24 12:45 Diagnostic Test (Pha) 1 strip Q6HR 10/13/24 18:00 10/14/24 17:57 1 STRIP Insulin Human Regular Q6HR SC 10/13/24 18:00 Dextrose 50 ml UD PRN IV 10/13/24 12:45 Aspirin 81 mg DAILY PO 10/14/24 10:00 10/14/24 07:59 81 MG Atorvastatin Calcium 20 mg HS PO 10/13/24 22:00 10/13/24 22:51 20 MG Cholecalciferol 1,000 unit DAILY PO 10/14/24 10:00 10/14/24 07:58 1,000 UNIT Empaglifozin 10 mg DAILY PO 10/13/24 13:48 10/14/24 07:58 10 MG Furosemide 20 mg DAILY PO 10/14/24 10:00 10/14/24 07:58 20 MG Patient Own Medication 1 tab BID PO 10/13/24 22:00 Dabigatran 150 mg BID PO 10/13/24 22:00 Patient Own Medication 1 tab DAILY PO 10/14/24 10:00 Ceftriaxone Sodium 50 ml @ 100 mls/hr DAILY@09 IV 10/13/24 12:45 10/14/24 08:00 100 MLS/HR Levothyroxine Sodium 100 mcg DAILY IV 10/15/24 10:00 Dextrose/Sodium Chloride 1,000 ml @ 75 mls/hr [id number] IV 10/14/24 13:45 10/14/24 14:37 75 MLS/HR Dexamethasone Sodium Phosphate 6 mg BID IV 10/14/24 22:00 Laboratory Results Laboratory Tests 10/14/24 04:38 Chemistry Test 10/14/24 04:38 Albumin 3.8 g/dL (3.2-4.8) Calcium Level 10.0 mg/dL (8.7-10.4) Total Protein 5.8 g/dL (5.7-8.2) LFT Test 10/14/24 04:38 Alanine Aminotransferase (ALT) 72 U/L (7-40) H Alkaline Phosphatase 125 U/L (46-116) H Aspartate Amino Transferase (AST) 49 U/L (13-40) H Total Bilirubin 0.7 mg/dL (0.2-1.0) Urinalysis Test 10/13/24 02:53 Urine Color Yellow (Yellow) Urine Clarity Clear (Clear) Urine pH 5.5 (5.0-9.0) Urine Specific [place] 1.025 (1.001-1.035) Urine Protein 1+ (Negative) H Urine Ketones Negative (Negative) Urine Blood Trace /uL (Negative) H Urine Nitrite Negative (Negative) Urine Bilirubin Negative (Negative) Urine Urobilinogen Normal mg/dL (Negative) Urine Leukocyte Esterase Negative /uL (Negative) Urine RBC 12 /hpf (0 - 4) Urine Microscopic WBC 1 /HPF (0-5) Urine Squamous Epithelial Cells None seen /hpf (<5) Urine Bacteria None seen /hpf (None Seen) Urine Glucose 4+ mg/dL (Normal) H Blood Gas Results Test 10/14/24 12:40 Arterial Blood pH 7.365 (7.350-7.450) FiO2 % 35.0 Microbiology Microbiology Date/Time Source Procedure Growth Status 10/13/24 17:20 Nose MRSA Screen - Final Complete 10/13/24 02:53 Urine - [place] Urine Culture - Preliminary Resulted 10/13/24 02:53 Blood Blood Culture - Preliminary NO GROWTH AFTER 24 HOURS OF INCUBATION. Resulted Assessment/Plan Assessment/Plan Acute encephalopathy Acute hypoxic respiratory failure Leukocytosis rule out sepsis CHRISTINE Diabetes type 2 History of CAD History of hypertension History of COPD History of emphysema History of AFib History of CHF History of hypothyroidism History of COVID History of PTCA x1 History of ICD Continue levophed IVF Continue mechanical intubation IV abx follow up blood cx Critical care time 59 minutes Plan discussed with: Other (nurse) My Orders Orders - RADHA BRODERICK MD Procedure Category Date Status Time *Consult CONS 10/14/24 Transmitted / 13:47 Apply Barrier Cream QUINTON 10/14/24 In Process 10:15 * Dietary Consult CONS 10/14/24 Transmitted 15:15 Date of Service: October 14, 2024 Billing Provider: RADHA BRODERICK MD Common Visit Codes: [id number] CARE 30-74 MIN RADHA BRODERICK MD October 14, 2024 18:05
[2024-10-14] MEDS: DexAMETHasone SOD PHOS 10MG/1ML VIAL INJ IV SCH (22:30)
[2024-10-15] VITALS (89 sets, daily range): BP systolic 80–122; BP diastolic 47–68; PULSE 59–80; RESP 10–22; TEMP 97–99.5; O2SAT 90–98
[2024-10-15 07:27] LABS: Base Excess -3.1 mmol/L (-2.0-3.0)
[2024-10-15] MEDS: LEVOTHYROXINE SODIUM 100 MCG/5 ML INJ IV SCH (08:39)
[2024-10-15] MEDS: MULTIPLE VITAMINS W/ MINERALS TAB PO SCH (08:43)
[2024-10-15] MEDS: ASCORBIC ACID 500 MG TAB PO SCH (08:44)
[2024-10-15 09:34] LABS: Basophils # (auto) 0 10 ^3/uL (0-0.2); Basophils % (auto) 0.2 % (0.0-2.0); Eosinophils # (auto) 0 10 ^3/uL (0-0.8); Hemoglobin 15.8 g/dL (12.2-16.2); Lymphocytes # (auto) 0.7 10 ^3/uL (0.4-5.4); Monocytes # (auto) 0.6 10 ^3/uL (0-1.3)
[2024-10-15 09:36] LABS: Hematocrit 49.8 % (36.0-46.0); Lymphocytes % (auto) 4.4 % (10.0-50.0); Mean Corpuscular Hemoglobin 23.3 pg (28.0-32.0); Mean Corpuscular Hgb Conc. 31.7 g/dL (32.0-36.0); Mean Corpuscular Volume 73.5 fL (80.0-100.0); Monocytes % (auto) 3.6 % (0.0-12.0); Neutrophils # (auto) 14.3 10 ^3/uL (1.6-8.6); Neutrophils % (auto) 91.8 % (37.0-80.0); Platelet Count (auto) 436 10^3/uL (140-450); Red Blood Cells 6.78 10^6/uL (4.0-5.20); White Blood Cell 15.6 10^3/uL (4.4-10.8)
[2024-10-15 09:50] LABS: Albumin 3.8 g/dL (3.2-4.8); Alkaline Phosphatase 101 U/L (46-116); Anion Gap 8 (5-15); Aspartate Aminotransferase 23 U/L (13-40); BUN/Creatinine Ratio 17.6 (10.0-20.0); Blood Urea Nitrogen 16 mg/dL (9-23); Calcium 9.3 mg/dL (8.7-10.4); Carbon Dioxide 24 mmol/L (20-31); Potassium 4.2 mmol/L (3.5-5.1); Sodium 141 mmol/L (136-145)
[2024-10-15 09:51] LABS: Alanine Aminotransferase 43 U/L (7-40); Bilirubin, Total 0.5 mg/dL (0.2-1.0); Chloride 109 mmol/L (98-107); Glucose 156 mg/dL (74-106)
--- NOTE | 2024-10-15 11:43 | DVH ---
XY CHEST PORTABLE, HISTORY: INTUBATED COMPARISON: XY CHEST XRAY 1 VIEW on DOS: 10/14/24, XY CHEST XRAY 1 VIEW on DOS: 10/13/24, XY CHEST XRAY 1 VIEW on DOS: 10/13/24 XY CHEST XRAY 1 VIEW on DOS: 10/14/24, XY CHEST XRAY 1 VIEW on DOS: 10/13/24, XY CHEST XRAY 1 VIEW on D OS: 10/13/24 TECHNICAL DATA: 1 view of the chest was obtained. FINDINGS: Lines and tubes: Stable positioning of the lines and tubes. Cardiomediastinal silhouette: normal Pulmonary vasculature: normal Lung expansion: normal Lung airspace: normal Lung interstitium: normal Pleura: normal Pneumothorax: no Bones: Unremarkable Other: no IMPRESSION: Stable positioning of the lines and tubes. Similar along IRRATION bilaterally.
--- NOTE | 2024-10-15 14:25 | DVHPN2 ---
Progress Note - Dictate Date Seen: October 15, 2024 Medical Necessity Reason Pt with a Central, PICC or Fol: No vital signs Vital Sign Date Time Temp Pulse Resp B/P (MAP) Pulse Ox O2 Delivery O2 Flow Rate FiO2 10/15/24 14:00 98.1 70 20 104/56 (72) 93 208.6 10/15/24 14:00 30 10/15/24 08:00 Mechanical Ventilator+ Total Intake and Output 10/14/24 10/14/24 10/15/24 15:00 23:00 07:00 Intake Total 275.162 ml 751.162 ml 854.912 ml Output Total 375 ml 450 ml Balance 275.162 ml 376.162 ml 404.912 ml medications Current Medications Medications Dose Ordered Sig/Joey Route Start Time Stop Time Status Last Admin Dose Admin Midazolam HCl 50 ml @ 1 mls/hr Q24H IV 10/13/24 03:00 10/15/24 08:38 5 MLS/HR Norepinephrine Bitartrate 250 ml @ 3.75 mls/hr Q24H IV 10/13/24 03:00 10/13/24 22:53 11.25 MLS/HR Propofol 100 ml @ 1.769 mls/ hr Q24H IV 10/13/24 06:30 10/15/24 11:47 10.614 MLS/HR Ondansetron HCl 4 mg Q4HP PRN IV 10/13/24 12:45 Enoxaparin Sodium 40 mg DAILY SC 10/14/24 10:00 10/15/24 08:41 40 MG Acetaminophen 650 mg Q6HP PRN PO 10/13/24 12:45 Nitroglycerin 0.4 mg Q5MINP PRN SL 10/13/24 12:45 Morphine Sulfate 2 mg Q30M PRN IV 10/13/24 12:45 Diagnostic Test (Pha) 1 strip Q6HR 10/13/24 18:00 10/15/24 12:09 1 STRIP Insulin Human Regular Q6HR SC 10/13/24 18:00 10/15/24 12:09 2 UNITS Dextrose 50 ml UD PRN IV 10/13/24 12:45 Aspirin 81 mg DAILY PO 10/14/24 10:00 10/15/24 08:40 81 MG Atorvastatin Calcium 20 mg HS PO 10/13/24 22:00 10/14/24 22:31 20 MG Cholecalciferol 1,000 unit DAILY PO 10/14/24 10:00 10/15/24 08:41 1,000 UNIT Empaglifozin 10 mg DAILY PO 10/13/24 13:48 10/15/24 08:41 10 MG Furosemide 20 mg DAILY PO 10/14/24 10:00 10/15/24 08:40 20 MG Patient Own Medication 1 tab BID PO 10/13/24 22:00 Dabigatran 150 mg BID PO 10/13/24 22:00 10/15/24 08:40 150 MG Patient Own Medication 1 tab DAILY PO 10/14/24 10:00 Ceftriaxone Sodium 50 ml @ 100 mls/hr DAILY@09 IV 10/13/24 12:45 10/15/24 08:42 100 MLS/HR Levothyroxine Sodium 100 mcg DAILY IV 10/15/24 10:00 10/15/24 08:39 100 MCG Dextrose/Sodium Chloride 1,000 ml @ 75 mls/hr [id number] IV 10/14/24 13:45 10/15/24 04:04 75 MLS/HR Dexamethasone Sodium Phosphate 6 mg BID IV 10/14/24 22:00 10/15/24 08:39 6 MG Ascorbic Acid 500 mg BID PO 10/15/24 10:00 10/15/24 08:44 500 MG Multivitamins/ Minerals 1 tab DAILY PO 10/15/24 10:00 10/15/24 08:43 1 TAB laboratory and microbiology Laboratory Tests 10/15/24 09:07 Test 10/15/24 09:07 Range/Units Serum Glucose 156 H 74-106 mg/dL Assessment/Plan Impression Acute hypoxemic respiratory failure Pleural effusions- small Altered mental status Hypothyroidism Pneumonia Patient seen and examined in JOANNE Events On mechanical ventilation S/p intubation PEEP 5, FiO2 30% Labs and imaging reviewed Chest x-ray shows interstitial opacities bilaterally, possible pneumonia, hyperinflated lungs and small pleural effusions ABG reviewed pH7.37, pCO2 37, pO2 67 Management Vent support Titrate to maintain sats 90% or above Sedation holiday to evaluate neurological status If patient follows commands, proceed to weaning trial Pressure support 7/5, extubate when ready Continue antibiotics F/u cultures Bronchodilators Stress-dose steroids for renal insufficiency Hydrocortisone 100mg TID Synthroid 100mcg IV daily Monitor renal function Monitor electrolytes Supplement as needed Pressors as needed for hemodynamic support To maintain a mean arterial pressure of 65 mmHg DVT prophylaxis Critical care time 35 minutes Dietary Evaluation Review Comments: 1) Initiate MVI qd 2) Initiate vitamin C @ 500 mg bid and zinc sulfate @ 220 mg qd for 7-10 days 3) If patient remains NPO > 7 days, consider EN/TPN to meet at least 75% of estimated daily needs 4) If GI route is preferred, consider Vital AF 1.2 @ 40 mL/hr goal rate as tolerated d/t increased protein needs secondary to hypermetabolic state r/t wounds and intubation. Flush with 200 mL Q6H. TF regimen will provide 1152 kcals, 72g Pro, and 1579 mL free H2O (including flushes) per 24 hrs. Goal rate will meet ~90% estimated energy needs and ~86% estimated protein needs 5) Advance to cardiac diet when medically feasible, pending ST approval 6) Continue to monitor I&O, labs, and skin integrity Expected Outcomes/Goals: 1) Patient to receive nutritional support within 7 days of NPO status 2) labs and wounds to improve 3) diet to advance 4) f/u in 2-3 days Plan discussed with: Other (Rn) GABRIEL ALVARADO MD October 15, 2024 14:25
--- NOTE | 2024-10-15 16:22 | DVHPN2 ---
Subjective intubated and sedated Changes from previous H/P or p: No Changes Respiratory: Shortness of breath Objective Vitals Vital Signs Date Time Temp Pulse Resp B/P (MAP) Pulse Ox O2 Delivery O2 Flow Rate FiO2 10/15/24 16:04 71 20 104/60 (75) 96 30 10/15/24 16:00 98.4 209.1 10/15/24 08:00 Mechanical Ventilator+ Intake/Output Intake and Output 10/15/24 07:00 Intake Total 1881.236 ml Output Total 825 ml Balance 1056.236 ml Intake Oral 140 ml IV Total 1741.236 ml Output Urine Total 825 ml Stool Total 0 ml General Appearance: Other (intubated and sedated) Lungs: Clear to auscultation Cardiovascular: Regular rate, Normal S1, Normal S2 Abdomen: Normal bowel sounds Medications Current Medications Medications Dose Ordered Sig/Joey Route Start Time Stop Time Status Last Admin Dose Admin Midazolam HCl 50 ml @ 1 mls/hr Q24H IV 10/13/24 03:00 10/15/24 08:38 5 MLS/HR Norepinephrine Bitartrate 250 ml @ 3.75 mls/hr Q24H IV 10/13/24 03:00 10/13/24 22:53 11.25 MLS/HR Propofol 100 ml @ 1.769 mls/ hr Q24H IV 10/13/24 06:30 10/15/24 11:47 10.614 MLS/HR Ondansetron HCl 4 mg Q4HP PRN IV 10/13/24 12:45 Enoxaparin Sodium 40 mg DAILY SC 10/14/24 10:00 10/15/24 08:41 40 MG Acetaminophen 650 mg Q6HP PRN PO 10/13/24 12:45 Nitroglycerin 0.4 mg Q5MINP PRN SL 10/13/24 12:45 Morphine Sulfate 2 mg Q30M PRN IV 10/13/24 12:45 Diagnostic Test (Pha) 1 strip Q6HR 10/13/24 18:00 10/15/24 12:09 1 STRIP Insulin Human Regular Q6HR SC 10/13/24 18:00 10/15/24 12:09 2 UNITS Dextrose 50 ml UD PRN IV 10/13/24 12:45 Aspirin 81 mg DAILY PO 10/14/24 10:00 10/15/24 08:40 81 MG Atorvastatin Calcium 20 mg HS PO 10/13/24 22:00 10/14/24 22:31 20 MG Cholecalciferol 1,000 unit DAILY PO 10/14/24 10:00 10/15/24 08:41 1,000 UNIT Empaglifozin 10 mg DAILY PO 10/13/24 13:48 10/15/24 08:41 10 MG Furosemide 20 mg DAILY PO 10/14/24 10:00 10/15/24 08:40 20 MG Patient Own Medication 1 tab BID PO 10/13/24 22:00 Dabigatran 150 mg BID PO 10/13/24 22:00 10/15/24 08:40 150 MG Patient Own Medication 1 tab DAILY PO 10/14/24 10:00 Ceftriaxone Sodium 50 ml @ 100 mls/hr DAILY@09 IV 10/13/24 12:45 10/15/24 08:42 100 MLS/HR Levothyroxine Sodium 100 mcg DAILY IV 10/15/24 10:00 10/15/24 08:39 100 MCG Dextrose/Sodium Chloride 1,000 ml @ 75 mls/hr [id number] IV 10/14/24 13:45 10/15/24 04:04 75 MLS/HR Dexamethasone Sodium Phosphate 6 mg BID IV 10/14/24 22:00 10/15/24 08:39 6 MG Ascorbic Acid 500 mg BID PO 10/15/24 10:00 10/15/24 08:44 500 MG Multivitamins/ Minerals 1 tab DAILY PO 10/15/24 10:00 10/15/24 08:43 1 TAB Laboratory Results Laboratory Tests 10/15/24 09:07 Chemistry Test 10/15/24 09:07 Albumin 3.8 g/dL (3.2-4.8) Calcium Level 9.3 mg/dL (8.7-10.4) Total Protein 6.0 g/dL (5.7-8.2) LFT Test 10/15/24 09:07 Alanine Aminotransferase (ALT) 43 U/L (7-40) H Alkaline Phosphatase 101 U/L (46-116) Aspartate Amino Transferase (AST) 23 U/L (13-40) Total Bilirubin 0.5 mg/dL (0.2-1.0) Urinalysis Test 10/13/24 02:53 Urine Color Yellow (Yellow) Urine Clarity Clear (Clear) Urine pH 5.5 (5.0-9.0) Urine Specific [place] 1.025 (1.001-1.035) Urine Protein 1+ (Negative) H Urine Ketones Negative (Negative) Urine Blood Trace /uL (Negative) H Urine Nitrite Negative (Negative) Urine Bilirubin Negative (Negative) Urine Urobilinogen Normal mg/dL (Negative) Urine Leukocyte Esterase Negative /uL (Negative) Urine RBC 12 /hpf (0 - 4) Urine Microscopic WBC 1 /HPF (0-5) Urine Squamous Epithelial Cells None seen /hpf (<5) Urine Bacteria None seen /hpf (None Seen) Urine Glucose 4+ mg/dL (Normal) H Blood Gas Results Test 10/15/24 07:12 Arterial Blood pH 7.378 (7.350-7.450) FiO2 % 30.0 Microbiology Microbiology Date/Time Source Procedure Growth Status 10/13/24 17:20 Nose MRSA Screen - Final Complete 10/13/24 02:53 Urine - [place] Urine Culture - Final Complete 10/13/24 02:53 Blood Blood Culture - Preliminary NO GROWTH AFTER 48 HOURS OF INCUBATION. Resulted Assessment/Plan Assessment/Plan Acute encephalopathy Acute hypoxic respiratory failure Leukocytosis rule out sepsis CHRISTINE Diabetes type 2 History of CAD History of hypertension History of COPD History of emphysema History of AFib History of CHF History of hypothyroidism History of COVID History of PTCA x1 History of ICD Continue levophed IVF Continue mechanical intubation IV abx follow up blood cx Critical care time 59 minutes Plan discussed with: Other (nurse) My Orders Orders - RADHA BRODERICK MD Procedure Category Date Status Time Ascorbic Acid Tablet PHA 10/15/24 In Process (Vitamin C Tablet) 10:00 Multiple Vitamin W PHA 10/15/24 In Process Mineral Tab (Mvi W/ M 10:00 Complete Blood Count LAB 10/16/24 Verified 04:00 Comprehensive LAB 10/16/24 Verified Metabolic Panel 04:00 Magnesium LAB 10/16/24 Verified 04:00 Date of Service: October 15, 2024 Billing Provider: RADHA BRODERICK MD Common Visit Codes: [id number] CARE 30-74 MIN RADHA BRODERICK MD October 15, 2024 16:22
[2024-10-16] VITALS (107 sets, daily range): BP systolic 88–161; BP diastolic 48–87; PULSE 61–115; RESP 14–31; TEMP 96.8–99.3; O2SAT 90–100
[2024-10-16 05:42] LABS: Basophils # (auto) 0 10 ^3/uL (0-0.2); Eosinophils # (auto) 0 10 ^3/uL (0-0.8); Eosinophils % (auto) 0.1 % (0.0-7.0); Hemoglobin 16.4 g/dL (12.2-16.2)
[2024-10-16 05:45] LABS: Basophils % (auto) 0.2 % (0.0-2.0); Hematocrit 52.1 % (36.0-46.0); Lymphocytes # (auto) 0.9 10 ^3/uL (0.4-5.4); Lymphocytes % (auto) 4.5 % (10.0-50.0); Mean Corpuscular Hemoglobin 23.4 pg (28.0-32.0); Mean Corpuscular Hgb Conc. 31.5 g/dL (32.0-36.0); Mean Corpuscular Volume 74.3 fL (80.0-100.0); Monocytes # (auto) 0.9 10 ^3/uL (0-1.3); Monocytes % (auto) 4.2 % (0.0-12.0); Neutrophils # (auto) 19.1 10 ^3/uL (1.6-8.6); Nucleated Red Blood Cells % 0.1 %; Platelet Count (auto) 441 10^3/uL (140-450); Red Blood Cells 7.01 10^6/uL (4.0-5.20)
[2024-10-16 05:46] LABS: Red Cell Distribution Width 20.5 % (11.8-14.3)
[2024-10-16 05:56] LABS: Alanine Aminotransferase 36 U/L (7-40); Albumin 3.7 g/dL (3.2-4.8); Alkaline Phosphatase 95 U/L (46-116); Anion Gap 8 (5-15); Aspartate Aminotransferase 23 U/L (13-40); Blood Urea Nitrogen 16 mg/dL (9-23); Calcium 9.5 mg/dL (8.7-10.4); Carbon Dioxide 21 mmol/L (20-31); Magnesium 2.5 mg/dL (1.6-2.6); Potassium 4.7 mmol/L (3.5-5.1); Sodium 141 mmol/L (136-145); Total Protein 6.1 g/dL (5.7-8.2)
[2024-10-16 05:57] LABS: Bilirubin, Total 0.3 mg/dL (0.2-1.0)
[2024-10-16 06:18] LABS: Chloride 112 mmol/L (98-107); Glucose 141 mg/dL (74-106)
[2024-10-16 06:52] LABS: Anisocytosis Slight; Hypochromia Slight; Platelet Estimate Adequate
--- NOTE | 2024-10-16 07:03 | DVH ---
INDICATION: INTUBATED TECHNIQUE: Frontal view of the chest. COMPARISON: XY CHEST PORTABLE on DOS: 10/15/24, XY CHEST XRAY 1 VIEW on DOS: 10/14/24, XY CHEST XRAY 1 VIEW on DOS: 10/13/24, XY CHEST XRAY 1 VIEW on DOS: 10/13/24, XY CHEST PORTABLE on DOS: 10/13/24, XY [facility] [facility] PORTABLE on DOS: 10/15/24 FINDINGS: Lines and tubes: Stable positioning of the lines and tubes. Cardiomediastinal silhouette: normal Pulmonary vasculature: normal Lung expansion: normal Lung airspace: normal Lung interstitium: normal Pleura: normal Pneumothorax: no Bones: Unremarkable Other: no IMPRESSION: Stable positioning of the lines and tubes. Similar along [place] bilaterally.
[2024-10-16 07:15] LABS: Base Excess -2.6 mmol/L (-2.0-3.0)
[2024-10-16] MEDS: DEXMEDETOMIDINE HCL IN D5W 100 ML IV SCH (09:45)
--- NOTE | 2024-10-16 10:28 | DVHPN2 ---
Progress Note - Dictate Date Seen: October 16, 2024 Medical Necessity Reason Pt with a Central, PICC or Fol: No vital signs Vital Sign Date Time Temp Pulse Resp B/P (MAP) Pulse Ox O2 Delivery O2 Flow Rate FiO2 10/16/24 09:51 93/50 10/16/24 08:15 98.4 71 24 209.1 10/16/24 08:03 97 30 10/16/24 08:00 Mechanical Ventilator+ Total Intake and Output 10/15/24 10/15/24 10/16/24 14:59 22:59 06:59 Intake Total 827.412 ml 844.912 ml 904.298 ml Output Total 400 ml 375 ml Balance 827.412 ml 444.912 ml 529.298 ml medications Current Medications Medications Dose Ordered Sig/Joey Route Start Time Stop Time Status Last Admin Dose Admin Midazolam HCl 50 ml @ 1 mls/hr Q24H IV 10/13/24 03:00 10/16/24 04:34 5 MLS/HR Norepinephrine Bitartrate 250 ml @ 3.75 mls/hr Q24H IV 10/13/24 03:00 10/15/24 22:49 7.5 MLS/HR Propofol 100 ml @ 1.769 mls/ hr Q24H IV 10/13/24 06:30 10/16/24 03:09 10.614 MLS/HR Ondansetron HCl 4 mg Q4HP PRN IV 10/13/24 12:45 Enoxaparin Sodium 40 mg DAILY SC 10/14/24 10:00 10/16/24 09:50 40 MG Acetaminophen 650 mg Q6HP PRN PO 10/13/24 12:45 Nitroglycerin 0.4 mg Q5MINP PRN SL 10/13/24 12:45 Morphine Sulfate 2 mg Q30M PRN IV 10/13/24 12:45 Diagnostic Test (Pha) 1 strip Q6HR 10/13/24 18:00 10/16/24 06:00 1 STRIP Insulin Human Regular Q6HR SC 10/13/24 18:00 10/15/24 17:25 3 UNITS Dextrose 50 ml UD PRN IV 10/13/24 12:45 Aspirin 81 mg DAILY PO 10/14/24 10:00 10/16/24 09:51 81 MG Atorvastatin Calcium 20 mg HS PO 10/13/24 22:00 10/15/24 22:57 20 MG Cholecalciferol 1,000 unit DAILY PO 10/14/24 10:00 10/16/24 09:51 1,000 UNIT Empaglifozin 10 mg DAILY PO 10/13/24 13:48 10/16/24 09:51 10 MG Furosemide 20 mg DAILY PO 10/14/24 10:00 10/16/24 09:51 20 MG Patient Own Medication 1 tab BID PO 10/13/24 22:00 Dabigatran 150 mg BID PO 10/13/24 22:00 10/16/24 09:52 150 MG Patient Own Medication 1 tab DAILY PO 10/14/24 10:00 Ceftriaxone Sodium 50 ml @ 100 mls/hr DAILY@09 IV 10/13/24 12:45 10/16/24 08:57 100 MLS/HR Levothyroxine Sodium 100 mcg DAILY IV 10/15/24 10:00 10/16/24 09:50 100 MCG Dextrose/Sodium Chloride 1,000 ml @ 75 mls/hr [id number] IV 10/14/24 13:45 10/16/24 05:45 75 MLS/HR Dexamethasone Sodium Phosphate 6 mg BID IV 10/14/24 22:00 10/16/24 09:50 6 MG Ascorbic Acid 500 mg BID PO 10/15/24 10:00 10/16/24 09:51 500 MG Multivitamins/ Minerals 1 tab DAILY PO 10/15/24 10:00 10/16/24 09:51 1 TAB laboratory and microbiology Laboratory Tests 10/16/24 05:05 Test 10/16/24 05:05 Range/Units Serum Glucose 141 H 74-106 mg/dL Assessment/Plan Impression Acute hypoxemic respiratory failure Pleural effusions- small Altered mental status Hypothyroidism Myxedema Pneumonia Patient seen and examined in JOANNE Events On mechanical ventilation S/p intubation PEEP 5, FiO2 30% Labs and imaging reviewed ABG reviewed Management Vent support Titrate to maintain sats 90% or above Sedation holiday to evaluate neurological status If patient follows commands, proceed to weaning trial Pressure support 11/26, extubate when ready Okay to use Precedex drip Continue antibiotics F/u cultures Bronchodilators Stress-dose steroids for renal insufficiency Hydrocortisone 100mg TID Synthroid 100mcg IV daily Monitor renal function Monitor electrolytes Supplement as needed Pressors as needed for hemodynamic support To maintain a mean arterial pressure of 65 mmHg DVT prophylaxis Critical care time 35 minutes Dietary Evaluation Review Comments: 1) Initiate MVI qd 2) Initiate vitamin C @ 500 mg bid and zinc sulfate @ 220 mg qd for 7-10 days 3) If patient remains NPO > 7 days, consider EN/TPN to meet at least 75% of estimated daily needs 4) If GI route is preferred, consider Vital AF 1.2 @ 40 mL/hr goal rate as tolerated d/t increased protein needs secondary to hypermetabolic state r/t wounds and intubation. Flush with 200 mL Q6H. TF regimen will provide 1152 kcals, 72g Pro, and 1579 mL free H2O (including flushes) per 24 hrs. Goal rate will meet ~90% estimated energy needs and ~86% estimated protein needs 5) Advance to cardiac diet when medically feasible, pending ST approval 6) Continue to monitor I&O, labs, and skin integrity Expected Outcomes/Goals: 1) Patient to receive nutritional support within 7 days of NPO status 2) labs and wounds to improve 3) diet to advance 4) f/u in 2-3 days Plan discussed with: Other (Rn) GABRIEL ALVARADO MD October 16, 2024 10:28
[2024-10-16 14:48] LABS: Base Excess -2.8 mmol/L (-2.0-3.0)
--- NOTE | 2024-10-16 17:26 | DVHPN2 ---
Subjective intubated and sedated Changes from previous H/P or p: No Changes Respiratory: Shortness of breath Objective Vitals Vital Signs Date Time Temp Pulse Resp B/P (MAP) Pulse Ox O2 Delivery O2 Flow Rate FiO2 10/16/24 16:00 88 10/16/24 16:00 22 95 Cool Aerosol 10 35 35 10/16/24 15:45 99.3 152/85 (107) 99.3 Intake/Output Intake and Output 10/16/24 07:00 Intake Total 2571.872 ml Output Total 775 ml Balance 1796.872 ml Intake Oral 160 ml IV Total 2411.872 ml Output Urine Total 775 ml General Appearance: Other (intubated and sedated) Lungs: Clear to auscultation Cardiovascular: Regular rate, Normal S1, Normal S2 Abdomen: Normal bowel sounds Medications Current Medications Medications Dose Ordered Sig/Joey Route Start Time Stop Time Status Last Admin Dose Admin Midazolam HCl 50 ml @ 1 mls/hr Q24H IV 10/13/24 03:00 10/16/24 04:34 5 MLS/HR Norepinephrine Bitartrate 250 ml @ 3.75 mls/hr Q24H IV 10/13/24 03:00 10/15/24 22:49 7.5 MLS/HR Propofol 100 ml @ 1.769 mls/ hr Q24H IV 10/13/24 06:30 10/16/24 03:09 10.614 MLS/HR Ondansetron HCl 4 mg Q4HP PRN IV 10/13/24 12:45 Enoxaparin Sodium 40 mg DAILY SC 10/14/24 10:00 10/16/24 09:50 40 MG Acetaminophen 650 mg Q6HP PRN PO 10/13/24 12:45 Nitroglycerin 0.4 mg Q5MINP PRN SL 10/13/24 12:45 Morphine Sulfate 2 mg Q30M PRN IV 10/13/24 12:45 Diagnostic Test (Pha) 1 strip Q6HR 10/13/24 18:00 10/16/24 11:40 1 STRIP Insulin Human Regular Q6HR SC 10/13/24 18:00 10/15/24 17:25 3 UNITS Dextrose 50 ml UD PRN IV 10/13/24 12:45 Aspirin 81 mg DAILY PO 10/14/24 10:00 10/16/24 09:51 81 MG Atorvastatin Calcium 20 mg HS PO 10/13/24 22:00 10/15/24 22:57 20 MG Cholecalciferol 1,000 unit DAILY PO 10/14/24 10:00 10/16/24 09:51 1,000 UNIT Empaglifozin 10 mg DAILY PO 10/13/24 13:48 10/16/24 09:51 10 MG Furosemide 20 mg DAILY PO 10/14/24 10:00 10/16/24 09:51 20 MG Patient Own Medication 1 tab BID PO 10/13/24 22:00 Dabigatran 150 mg BID PO 10/13/24 22:00 10/16/24 09:52 150 MG Patient Own Medication 1 tab DAILY PO 10/14/24 10:00 Ceftriaxone Sodium 50 ml @ 100 mls/hr DAILY@09 IV 10/13/24 12:45 10/16/24 08:57 100 MLS/HR Levothyroxine Sodium 100 mcg DAILY IV 10/15/24 10:00 10/16/24 09:50 100 MCG Dextrose/Sodium Chloride 1,000 ml @ 75 mls/hr [id number] IV 10/14/24 13:45 10/16/24 05:45 75 MLS/HR Dexamethasone Sodium Phosphate 6 mg BID IV 10/14/24 22:00 10/16/24 09:50 6 MG Ascorbic Acid 500 mg BID PO 10/15/24 10:00 10/16/24 09:51 500 MG Multivitamins/ Minerals 1 tab DAILY PO 10/15/24 10:00 10/16/24 09:51 1 TAB Albuterol 2.5 mg Q4HPRN PRN NEB 10/16/24 16:45 Ipratropium [place] 0.5 mg Q4HPRN PRN NEB 10/16/24 16:45 Laboratory Results Laboratory Tests 10/16/24 05:05 Chemistry Test 10/16/24 05:05 Albumin 3.7 g/dL (3.2-4.8) Calcium Level 9.5 mg/dL (8.7-10.4) Magnesium Level 2.5 mg/dL (1.6-2.6) Total Protein 6.1 g/dL (5.7-8.2) LFT Test 10/16/24 05:05 Alanine Aminotransferase (ALT) 36 U/L (7-40) Alkaline Phosphatase 95 U/L (46-116) Aspartate Amino Transferase (AST) 23 U/L (13-40) Total Bilirubin 0.3 mg/dL (0.2-1.0) Urinalysis Test 10/13/24 02:53 Urine Color Yellow (Yellow) Urine Clarity Clear (Clear) Urine pH 5.5 (5.0-9.0) Urine Specific [place] 1.025 (1.001-1.035) Urine Protein 1+ (Negative) H Urine Ketones Negative (Negative) Urine Blood Trace /uL (Negative) H Urine Nitrite Negative (Negative) Urine Bilirubin Negative (Negative) Urine Urobilinogen Normal mg/dL (Negative) Urine Leukocyte Esterase Negative /uL (Negative) Urine RBC 12 /hpf (0 - 4) Urine Microscopic WBC 1 /HPF (0-5) Urine Squamous Epithelial Cells None seen /hpf (<5) Urine Bacteria None seen /hpf (None Seen) Urine Glucose 4+ mg/dL (Normal) H Blood Gas Results Test 10/16/24 07:04 10/16/24 14:39 Arterial Blood pH 7.348 (7.350-7.450) 7.372 (7.350-7.450) FiO2 % 30.0 30.0 Microbiology Microbiology Date/Time Source Procedure Growth Status 10/13/24 17:20 Nose MRSA Screen - Final Complete 10/13/24 02:53 Urine - [place] Urine Culture - Final Complete 10/13/24 02:53 Blood Blood Culture - Preliminary NO GROWTH AFTER 72 HOURS OF INCUBATION. Resulted Assessment/Plan Assessment/Plan Acute encephalopathy Acute hypoxic respiratory failure Leukocytosis rule out sepsis CHRISTINE Diabetes type 2 History of CAD History of hypertension History of COPD History of emphysema History of AFib History of CHF History of hypothyroidism History of COVID History of PTCA x1 History of ICD Continue levophed IVF Continue mechanical intubation IV abx follow up blood cx Critical care time 59 minutes Plan discussed with: Patient My Orders Orders - RADHA BRODERICK MD Procedure Category Date Status Time Complete Blood Count LAB 10/17/24 Verified 04:00 Comprehensive LAB 10/17/24 Verified Metabolic Panel 04:00 Date of Service: October 16, 2024 Billing Provider: RADHA BRODERICK MD Common Visit Codes: [id number] INP/OBS CARE(HIGH) RADHA BRODERICK MD October 16, 2024 17:26
[2024-10-16 20:09] LABS: Base Excess -1.5 mmol/L (-2.0-3.0)
[2024-10-16] MEDS: EPINEPHrine HCL 0.5 ML NEB ONE (20:18)
[2024-10-16] MEDS: EPINEPHrine HCL 0.5 ML NEB NEB ONE ×2 (20:18→22:04)
[2024-10-16] MEDS: ALBUTEROL SULF 2.5 MG/0.5ML(0.5%) NEB SOLN NEB PRN (20:38)
[2024-10-16] MEDS: IPRATROPIUM BROM 0.5 MG/2.5ML INH SOL NEB PRN (20:38)
[2024-10-16] MEDS: LORazepam 2MG/ML-1ML VIAL IM ONE (21:30)
[2024-10-16] MEDS: ALBUTEROL SULF 2.5 MG/0.5ML(0.5%) NEB SOLN NEB ONE (21:46)
[2024-10-16] MEDS: LORazepam 2MG/ML-1ML VIAL IV ONE (22:30)
[2024-10-16] MEDS: MAGNESIUM SULFATE 1GM/100ML 100 ML IV SCH (22:41)
[2024-10-16] MEDS: methylPREDNISolone SOD SUCC 125 MG/2 ML VL IV ONE (22:41)
[2024-10-16 23:28] LABS: Base Excess -5.7 mmol/L (-2.0-3.0)
[2024-10-16] MEDS: ETOMIDATE (2MG/ML) 20ML VIAL IV ONE (23:40)
[2024-10-16] MEDS: SUCCINYLCHOLINE CHLORIDE 20 MG/ML 10ML VIAL IV ONE (23:41)
[2024-10-17] VITALS (97 sets, daily range): BP systolic 89–173; BP diastolic 41–90; PULSE 75–126; RESP 15–27; TEMP 97.7–99; O2SAT 95–100
[2024-10-17] MEDS: MIDAZOLAM DRIP 50 mg/50mL 50 ML IV ONE (00:09)
[2024-10-17] MEDS: ETOMIDATE (2MG/ML) 20ML VIAL IV ONE (00:30)
[2024-10-17] MEDS: MIDAZOLAM DRIP 50 mg/50mL 50 ML IV SCH (00:34)
[2024-10-17] MEDS: SUCCINYLCHOLINE CHLORIDE 20 MG/ML 10ML VIAL IV ONE (00:37)
--- NOTE | 2024-10-17 01:09 | DVH ---
CHEST RADIOGRAPH Indication: POST INTUBATION Technique: Single frontal view of the chest was obtained COMPARISON: XY CHEST PORTABLE on DOS: 10/16/24 FINDINGS: Lines and Tubes: Right IJ central venous catheter, NG tube, and AICD again noted. Lungs: Mild pulmonary vascular congestion. No pulmonary infiltrates noted. Emphysematous changes in upper lobes. Pleura: No effusion.No pneumothorax. Cardiomediastinal contours: Mild cardiomegaly. IMPRESSION: No acute disease. No significant change compared to the prior chest x-ray from a day earlier.
[2024-10-17 01:29] LABS: Base Excess -4.6 mmol/L (-2.0-3.0)
[2024-10-17 05:35] LABS: Basophils # (auto) 0 10 ^3/uL (0-0.2); Basophils % (auto) 0.1 % (0.0-2.0); Eosinophils # (auto) 0 10 ^3/uL (0-0.8); Hematocrit 43.8 % (36.0-46.0); Hemoglobin 13.9 g/dL (12.2-16.2); Lymphocytes # (auto) 0.2 10 ^3/uL (0.4-5.4); Lymphocytes % (auto) 1.7 % (10.0-50.0); Mean Corpuscular Hgb Conc. 31.7 g/dL (32.0-36.0); Mean Corpuscular Volume 72.4 fL (80.0-100.0); Monocytes # (auto) 0.4 10 ^3/uL (0-1.3); Monocytes % (auto) 2.9 % (0.0-12.0); Neutrophils # (auto) 12.7 10 ^3/uL (1.6-8.6); Neutrophils % (auto) 95.3 % (37.0-80.0); Nucleated Red Blood Cells % 0.1 %; Platelet Count (auto) 438 10^3/uL (140-450); Red Blood Cells 6.05 10^6/uL (4.0-5.20); Red Cell Distribution Width 19.7 % (11.8-14.3); White Blood Cell 13.3 10^3/uL (4.4-10.8)
[2024-10-17 05:45] LABS: Alanine Aminotransferase 29 U/L (7-40); Albumin 3.7 g/dL (3.2-4.8); Alkaline Phosphatase 76 U/L (46-116); Anion Gap 11 (5-15); Aspartate Aminotransferase 16 U/L (13-40); BUN/Creatinine Ratio 28.7 (10.0-20.0); Carbon Dioxide 23 mmol/L (20-31); Total Protein 5.8 g/dL (5.7-8.2)
[2024-10-17 05:48] LABS: Bilirubin, Total 0.3 mg/dL (0.2-1.0)
[2024-10-17 05:49] LABS: Blood Urea Nitrogen 25 mg/dL (9-23); Calcium 8.6 mg/dL (8.7-10.4); Chloride 112 mmol/L (98-107); Glucose 154 mg/dL (74-106); Potassium 3.4 mmol/L (3.5-5.1); Sodium 146 mmol/L (136-145)
--- NOTE | 2024-10-17 06:02 | DVH ---
INDICATION: INTUBATION TECHNIQUE: Single frontal view of the chest was obtained COMPARISON: XY CHEST PORTABLE on DOS: 10/17/24, XY CHEST PORTABLE on DOS: 10/16/24, XY CHEST PORTABLE o n DOS: 10/15/24, XY CHEST XRAY 1 VIEW on DOS: 10/14/24, XY CHEST XRAY 1 VIEW on DOS: 10/13/24, XY CHEST PORTABLE on DOS: 10/17/24 FINDINGS: Lines and Tubes: Right IJ central venous catheter, NG tube, and AICD again noted. ETT 5.4 cm from the marielena. Lungs: Mild pulmonary vascular congestion. No pulmonary infiltrates noted. Emphysematous changes in upper lobes. Pleura: No effusion.No pneumothorax. Cardiomediastinal contours: Mild cardiomegaly. IMPRESSION: No acute disease. No significant change compared to the prior chest x-ray from a day earlier.
[2024-10-17] MEDS ORDERED: Jevity 1.2 Cal/Fiber 1 Liter GT SCH (13:30)
[2024-10-17] MEDS: POTASSIUM CHL 20MEQ/100ML 100 ML IV SCH (13:42)
[2024-10-17] MEDS: LEVOTHYROXINE SODIUM 112 MCG TAB PO SCH (13:43)
[2024-10-17] MEDS: methylPREDNISolone SOD SUCC 125 MG/2 ML VL IV SCH (14:28)
[2024-10-17] MEDS: Osmolite 1.2 Cal One Liter GT SCH (15:18)
--- NOTE | 2024-10-17 16:18 | DVHPN2 ---
Progress Note - Dictate Date Seen: October 17, 2024 Medical Necessity Reason Pt with a Central, PICC or Fol: No vital signs Vital Sign Date Time Temp Pulse Resp B/P (MAP) Pulse Ox O2 Delivery O2 Flow Rate FiO2 10/17/24 16:08 78 20 89/41 (57) 98 35 10/17/24 14:30 98.8 209.8 10/17/24 12:00 Mechanical Ventilator+ 10/16/24 22:04 8.0 Total Intake and Output 10/16/24 10/16/24 10/17/24 15:00 23:00 07:00 Intake Total 722.690 ml 660 ml 729.307 ml Output Total 375 ml 400 ml Balance 722.690 ml 285 ml 329.307 ml medications Current Medications Medications Dose Ordered Sig/Joey Route Start Time Stop Time Status Last Admin Dose Admin Norepinephrine Bitartrate 250 ml @ 3.75 mls/hr Q24H IV 10/13/24 03:00 10/17/24 04:54 3.75 MLS/HR Propofol 100 ml @ 1.769 mls/ hr Q24H IV 10/13/24 06:30 10/17/24 12:58 7.076 MLS/HR Ondansetron HCl 4 mg Q4HP PRN IV 10/13/24 12:45 Enoxaparin Sodium 40 mg DAILY SC 10/14/24 10:00 10/17/24 09:37 40 MG Acetaminophen 650 mg Q6HP PRN PO 10/13/24 12:45 Nitroglycerin 0.4 mg Q5MINP PRN SL 10/13/24 12:45 Morphine Sulfate 2 mg Q30M PRN IV 10/13/24 12:45 Diagnostic Test (Pha) 1 strip Q6HR 10/13/24 18:00 10/17/24 11:37 1 STRIP Insulin Human Regular Q6HR SC 10/13/24 18:00 10/17/24 06:31 2 UNITS Dextrose 50 ml UD PRN IV 10/13/24 12:45 Aspirin 81 mg DAILY PO 10/14/24 10:00 10/17/24 09:36 81 MG Atorvastatin Calcium 20 mg HS PO 10/13/24 22:00 10/15/24 22:57 20 MG Cholecalciferol 1,000 unit DAILY PO 10/14/24 10:00 10/17/24 09:37 1,000 UNIT Empaglifozin 10 mg DAILY PO 10/13/24 13:48 10/17/24 10:06 10 MG Patient Own Medication 1 tab BID PO 10/13/24 22:00 Hold Dabigatran 150 mg BID PO 10/13/24 22:00 10/17/24 10:08 150 MG Patient Own Medication 1 tab DAILY PO 10/14/24 10:00 Ceftriaxone Sodium 50 ml @ 100 mls/hr DAILY@09 IV 10/13/24 12:45 10/17/24 09:27 100 MLS/HR Ascorbic Acid 500 mg BID PO 10/15/24 10:00 10/17/24 09:37 500 MG Multivitamins/ Minerals 1 tab DAILY PO 10/15/24 10:00 10/17/24 09:36 1 TAB Albuterol 2.5 mg Q4HPRN PRN NEB 10/16/24 16:45 10/17/24 11:22 2.5 MG Ipratropium [place] 0.5 mg Q4HPRN PRN NEB 10/16/24 16:45 10/17/24 11:22 0.5 MG Midazolam HCl 50 ml @ 1 mls/hr Q24H IV 10/17/24 00:00 10/17/24 15:18 7 MLS/HR Potassium Chloride 100 ml @ 50 mls/hr Q2H IV 10/17/24 13:30 10/17/24 17:29 10/17/24 13:42 50 MLS/HR Levothyroxine Sodium 112 mcg QAM@0600 PO 10/17/24 13:30 10/17/24 13:43 112 MCG Furosemide 20 mg DAILY IV 10/18/24 10:00 Methylprednisolone Sodium Succinate 60 mg Q8HR IV 10/17/24 14:00 10/17/24 14:28 60 MG Purified Water 250 ml Q6HR GT 10/17/24 18:00 Enteral Nutritional Formula 1,000 ml 30ML/HR GT 10/17/24 13:30 Enteral Nutritional Formula 1,000 ml 30ML/HR GT 10/17/24 14:30 10/17/24 15:18 1,000 ML laboratory and microbiology Laboratory Tests 10/17/24 05:07 Test 10/17/24 05:07 Range/Units Serum Glucose 154 H 74-106 mg/dL Assessment/Plan Impression Acute hypoxemic respiratory failure Pleural effusions- small Altered mental status Hypothyroidism Myxedema Pneumonia Patient seen and examined in JONANE Events Patient was weaned from vent yesterday and subsequently extubated Placed on facemask, patient tachypneic and using accessory muscles Patient had to be re-intubated and placed back on mechanical ventilation PEEP 5, FiO2 35% Labs and imaging reviewed ABG reviewed Management Vent support Titrate to maintain sats 90% or above Sedation for vent synchrony Continue antibiotics F/u cultures Bronchodilators Stress-dose steroids for renal insufficiency Hydrocortisone 100mg TID Synthroid 100mcg IV daily Monitor renal function Monitor electrolytes Supplement as needed Pressors as needed for hemodynamic support To maintain a mean arterial pressure of 65 mmHg Family contemplating comfort measures DVT prophylaxis Critical care time 35 minutes Dietary Evaluation Review Comments: 1) Initiate MVI qd 2) Initiate vitamin C @ 500 mg bid and zinc sulfate @ 220 mg qd for 7-10 days 3) If patient remains NPO > 7 days, consider EN/TPN to meet at least 75% of estimated daily needs 4) If GI route is preferred, consider Vital AF 1.2 @ 40 mL/hr goal rate as tolerated d/t increased protein needs secondary to hypermetabolic state r/t wounds and intubation. Flush with 200 mL Q6H. TF regimen will provide 1152 kcals, 72g Pro, and 1579 mL free H2O (including flushes) per 24 hrs. Goal rate will meet ~90% estimated energy needs and ~86% estimated protein needs 5) Advance to cardiac diet when medically feasible, pending ST approval 6) Continue to monitor I&O, labs, and skin integrity Expected Outcomes/Goals: 1) Patient to receive nutritional support within 7 days of NPO status 2) labs and wounds to improve 3) diet to advance 4) f/u in 2-3 days Plan discussed with: Other (Rn) GABRIEL ALVARADO MD October 17, 2024 16:18
[2024-10-17] MEDS: FREE WATER GT SCH (17:16)
--- NOTE | 2024-10-17 20:36 | DVHPN2 ---
Subjective intubated and sedated Changes from previous H/P or p: No Changes Respiratory: Shortness of breath Objective Vitals Vital Signs Date Time Temp Pulse Resp B/P (MAP) Pulse Ox O2 Delivery O2 Flow Rate FiO2 10/17/24 20:13 80 20 103/56 (72) 96 30 10/17/24 20:00 98.6 209.5 10/17/24 19:36 Mechanical Ventilator+ 10/16/24 22:04 8.0 Intake/Output Intake and Output 10/17/24 07:00 Intake Total 2104.997 ml Output Total 775 ml Balance 1329.997 ml Intake Oral 60 ml IV Total 2044.997 ml Output Urine Total 775 ml General Appearance: Other (intubated and sedated) Lungs: Clear to auscultation Cardiovascular: Regular rate, Normal S1, Normal S2 Abdomen: Normal bowel sounds Medications Current Medications Medications Dose Ordered Sig/Joey Route Start Time Stop Time Status Last Admin Dose Admin Norepinephrine Bitartrate 250 ml @ 3.75 mls/hr Q24H IV 10/13/24 03:00 10/17/24 04:54 3.75 MLS/HR Propofol 100 ml @ 1.769 mls/ hr Q24H IV 10/13/24 06:30 10/17/24 12:58 7.076 MLS/HR Ondansetron HCl 4 mg Q4HP PRN IV 10/13/24 12:45 Enoxaparin Sodium 40 mg DAILY SC 10/14/24 10:00 10/17/24 09:37 40 MG Acetaminophen 650 mg Q6HP PRN PO 10/13/24 12:45 Nitroglycerin 0.4 mg Q5MINP PRN SL 10/13/24 12:45 Morphine Sulfate 2 mg Q30M PRN IV 10/13/24 12:45 Diagnostic Test (Pha) 1 strip Q6HR 10/13/24 18:00 10/17/24 17:15 1 STRIP Insulin Human Regular Q6HR SC 10/13/24 18:00 10/17/24 06:31 2 UNITS Dextrose 50 ml UD PRN IV 10/13/24 12:45 Aspirin 81 mg DAILY PO 10/14/24 10:00 10/17/24 09:36 81 MG Atorvastatin Calcium 20 mg HS PO 10/13/24 22:00 10/17/24 20:02 20 MG Cholecalciferol 1,000 unit DAILY PO 10/14/24 10:00 10/17/24 09:37 1,000 UNIT Empaglifozin 10 mg DAILY PO 10/13/24 13:48 10/17/24 10:06 10 MG Patient Own Medication 1 tab BID PO 10/13/24 22:00 Hold Dabigatran 150 mg BID PO 10/13/24 22:00 10/17/24 20:02 150 MG Patient Own Medication 1 tab DAILY PO 10/14/24 10:00 Ceftriaxone Sodium 50 ml @ 100 mls/hr DAILY@09 IV 10/13/24 12:45 10/17/24 09:27 100 MLS/HR Ascorbic Acid 500 mg BID PO 10/15/24 10:00 10/17/24 20:01 500 MG Multivitamins/ Minerals 1 tab DAILY PO 10/15/24 10:00 10/17/24 09:36 1 TAB Albuterol 2.5 mg Q4HPRN PRN NEB 10/16/24 16:45 10/17/24 11:22 2.5 MG Ipratropium [place] 0.5 mg Q4HPRN PRN NEB 10/16/24 16:45 10/17/24 11:22 0.5 MG Midazolam HCl 50 ml @ 1 mls/hr Q24H IV 10/17/24 00:00 10/17/24 15:18 7 MLS/HR Levothyroxine Sodium 112 mcg QAM@0600 PO 10/17/24 13:30 10/17/24 13:43 112 MCG Furosemide 20 mg DAILY IV 10/18/24 10:00 Methylprednisolone Sodium Succinate 60 mg Q8HR IV 10/17/24 14:00 10/17/24 20:01 60 MG Purified Water 250 ml Q6HR GT 10/17/24 18:00 10/17/24 17:16 250 ML Enteral Nutritional Formula 1,000 ml 30ML/HR GT 10/17/24 13:30 Enteral Nutritional Formula 1,000 ml 30ML/HR GT 10/17/24 14:30 10/17/24 15:18 1,000 ML Laboratory Results Laboratory Tests 10/17/24 05:07 Chemistry Test 10/17/24 05:07 Albumin 3.7 g/dL (3.2-4.8) Calcium Level 8.6 mg/dL (8.7-10.4) L Magnesium Level 2.5 mg/dL (1.6-2.6) Total Protein 5.8 g/dL (5.7-8.2) LFT Test 10/17/24 05:07 Alanine Aminotransferase (ALT) 29 U/L (7-40) Alkaline Phosphatase 76 U/L (46-116) Aspartate Amino Transferase (AST) 16 U/L (13-40) Total Bilirubin 0.3 mg/dL (0.2-1.0) Urinalysis Test 10/13/24 02:53 Urine Color Yellow (Yellow) Urine Clarity Clear (Clear) Urine pH 5.5 (5.0-9.0) Urine Specific [place] 1.025 (1.001-1.035) Urine Protein 1+ (Negative) H Urine Ketones Negative (Negative) Urine Blood Trace /uL (Negative) H Urine Nitrite Negative (Negative) Urine Bilirubin Negative (Negative) Urine Urobilinogen Normal mg/dL (Negative) Urine Leukocyte Esterase Negative /uL (Negative) Urine RBC 12 /hpf (0 - 4) Urine Microscopic WBC 1 /HPF (0-5) Urine Squamous Epithelial Cells None seen /hpf (<5) Urine Bacteria None seen /hpf (None Seen) Urine Glucose 4+ mg/dL (Normal) H Blood Gas Results Test 10/16/24 23:11 10/17/24 01:07 10/17/24 06:33 Arterial Blood pH 7.330 (7.350-7.450) 7.354 (7.350-7.450) 7.385 (7.350-7.450) FiO2 % 35.0 35.0 35.0 Microbiology Microbiology Date/Time Source Procedure Growth Status 10/13/24 17:20 Nose MRSA Screen - Final Complete 10/13/24 02:53 Urine - [place] Urine Culture - Final Complete 10/13/24 02:53 Blood Blood Culture - Preliminary NO GROWTH AFTER 72 HOURS OF INCUBATION. Resulted Assessment/Plan Assessment/Plan Acute encephalopathy Acute hypoxic respiratory failure Leukocytosis rule out sepsis CHRISTINE Diabetes type 2 History of CAD History of hypertension History of COPD History of emphysema History of AFib History of CHF History of hypothyroidism History of COVID History of PTCA x1 History of ICD Continue levophed IVF Continue mechanical intubation IV abx follow up blood cx Critical care time 59 minutes Plan discussed with: Other (nurse) My Orders Orders - RADHA BRODERICK MD Procedure Category Date Status Time Levothyroxine Tablet PHA 10/17/24 In Process (Synthroid Tablet) 13:30 Nutritional PHA 10/17/24 In Process Supplements (Osmolite 14:30 Complete Blood Count LAB 10/18/24 Verified 04:00 Comprehensive LAB 10/18/24 Verified Metabolic Panel 04:00 Magnesium LAB 10/18/24 Verified 04:00 Chest Portable XY 10/18/24 Logged 04:00 Abg W/ Co-Ox RT 10/18/24 Logged 06:00 Date of Service: October 17, 2024 Billing Provider: RADHA BRODERICK MD Common Visit Codes: [id number] CARE 30-74 MIN RADHA BRODERICK MD October 17, 2024 20:36
--- NOTE | 2024-10-17 21:00 | DVHNC2 ---
Intubation Indication: Respiratory Insufficiency, Airway Protection Prep: Preoxygenation Pretreated with: Sedation Medicated with: Succinylcholine Intubation Approach: Orotracheal Intubation size: cm (22 lip) Informed consent obtained: No Risks/benefits/alt described: No UTO Consent emergent intubation Notes A time out was performed. My hands were washed immediately prior to the procedure. I wore a surgical cap, mask with protective eyewear, gown and gloves throughout the procedure. The patient was placed on a store administrator including continuous pulse oximetry. Rapid Sequence Intubation was conducted. The patient received 15mg of etiomidate for induction and 60mg of succinylcholine for adequate paralysis. Cricoid pressure was maintained from time induction agent was given to time of cuff balloon inflation. Using a MAC four laryngoscope and a size 7.5 endotracheal tube with stylet, the patient was intubated on the _ attempt. The stylet was removed and cuff balloon was inflated. Appropriate endotracheal tube position was confirmed by direct visualization of vocal cord passage, fogging of the tube, CO2 colormetric indicator and symmetric breath sounds. The tube was secured at 22 cm at the lips. Post intubation chest x-ray is pending at this time. Date of Service: October 16, 2024 Billing Provider: ED DOMINIQUE Common Visit Codes: PROCEDURE ONLY Procedure Codes: [id number] ED DOMINIQUE October 17, 2024 21:00
[2024-10-18] VITALS (78 sets, daily range): BP systolic 97–138; BP diastolic 55–81; PULSE 64–88; RESP 19–22; TEMP 98.1–99.3; O2SAT 94–100
--- NOTE | 2024-10-18 04:26 | DVH ---
INDICATION: CONGESTION TECHNIQUE: Single frontal view of the chest was obtained COMPARISON: XY CHEST PORTABLE on DOS: 10/17/24, XY CHEST PORTABLE on DOS: 10/17/24, XY CHEST PORTABLE o n DOS: 10/16/24, XY CHEST PORTABLE on DOS: 10/15/24, XY CHEST XRAY 1 VIEW on DOS: 10/14/24, XY CHEST POR TABLE on DOS: 10/17/24 FINDINGS: Lines and Tubes: Right IJ central venous catheter, NG tube, and AICD again noted. ETT 5.4 cm from the marielena. Lungs: Mild pulmonary vascular congestion. No pulmonary infiltrates noted. Emphysematous changes in upper lobes. Pleura: No effusion.No pneumothorax. Cardiomediastinal contours: Mild cardiomegaly. IMPRESSION: No acute disease. No significant change compared to the prior chest x-ray from a day earlier.
[2024-10-18 05:05] LABS: Basophils # (auto) 0 10 ^3/uL (0-0.2); Eosinophils # (auto) 0 10 ^3/uL (0-0.8); Hematocrit 44.3 % (36.0-46.0); Hemoglobin 14.3 g/dL (12.2-16.2); Lymphocytes # (auto) 0.5 10 ^3/uL (0.4-5.4); Lymphocytes % (auto) 5.1 % (10.0-50.0); Mean Corpuscular Hemoglobin 23.4 pg (28.0-32.0); Mean Corpuscular Hgb Conc. 32.2 g/dL (32.0-36.0); Mean Corpuscular Volume 72.7 fL (80.0-100.0); Monocytes # (auto) 0.3 10 ^3/uL (0-1.3); Monocytes % (auto) 2.7 % (0.0-12.0); Neutrophils # (auto) 9.5 10 ^3/uL (1.6-8.6); Neutrophils % (auto) 92.2 % (37.0-80.0); Nucleated Red Blood Cells % 0.1 %; Platelet Count (auto) 424 10^3/uL (140-450); Red Cell Distribution Width 20.5 % (11.8-14.3); White Blood Cell 10.4 10^3/uL (4.4-10.8)
[2024-10-18 05:21] LABS: Alanine Aminotransferase 26 U/L (7-40); Albumin 3.6 g/dL (3.2-4.8); Alkaline Phosphatase 67 U/L (46-116); Anion Gap 7 (5-15); Aspartate Aminotransferase 18 U/L (13-40); BUN/Creatinine Ratio 33.3 (10.0-20.0); Bilirubin, Total 0.3 mg/dL (0.2-1.0); Calcium 8.9 mg/dL (8.7-10.4); Carbon Dioxide 25 mmol/L (20-31); Magnesium 2.4 mg/dL (1.6-2.6); Potassium 4.4 mmol/L (3.5-5.1); Sodium 145 mmol/L (136-145)
[2024-10-18 05:33] LABS: Blood Urea Nitrogen 25 mg/dL (9-23); Chloride 113 mmol/L (98-107); Glucose 125 mg/dL (74-106); Total Protein 5.6 g/dL (5.7-8.2)
[2024-10-18 09:21] LABS: Base Excess -2.9 mmol/L (-2.0-3.0)
[2024-10-18] MEDS: FUROSEMIDE 20 MG/2 ML VIAL IV SCH (09:40)
--- NOTE | 2024-10-18 11:05 | DVHPN2 ---
Progress Note Date Seen: October 18, 2024 Medical Necessity Reason Pt with a Central, PICC or Fol: Yes The following are medically ne: Central Line, Manuel Catheter Reason for manuel catheter: Strict I&O Subjective Patient reports: No new complaints Review of Systems: HEENT:Normal, CVS:Normal, RESPIRATORY:Normal, GI:Normal, :Normal, MSK:Normal, NEURO:Normal Objective vital signs Vital Sign Date Time Temp Pulse Resp B/P (MAP) Pulse Ox O2 Delivery O2 Flow Rate FiO2 10/18/24 10:00 72 10/18/24 09:40 129/75 10/18/24 09:00 99.0 20 98 210.2 10/18/24 08:00 Mechanical Ventilator+ 35 35 10/16/24 22:04 8.0 Total Intake and Output 10/17/24 10/17/24 10/18/24 15:00 23:00 07:00 Intake Total 681.358 ml 564.456 ml 532.076 ml Output Total 600 ml 450 ml Balance 681.358 ml -35.544 ml 82.076 ml medications Current Medications Medications Dose Ordered Sig/Joey Route Start Time Stop Time Status Last Admin Dose Admin Norepinephrine Bitartrate 250 ml @ 3.75 mls/hr Q24H IV 10/13/24 03:00 10/17/24 04:54 3.75 MLS/HR Propofol 100 ml @ 1.769 mls/ hr Q24H IV 10/13/24 06:30 10/17/24 22:24 7.076 MLS/HR Ondansetron HCl 4 mg Q4HP PRN IV 10/13/24 12:45 Enoxaparin Sodium 40 mg DAILY SC 10/14/24 10:00 10/17/24 09:37 40 MG Acetaminophen 650 mg Q6HP PRN PO 10/13/24 12:45 Nitroglycerin 0.4 mg Q5MINP PRN SL 10/13/24 12:45 Morphine Sulfate 2 mg Q30M PRN IV 10/13/24 12:45 Diagnostic Test (Pha) 1 strip Q6HR 10/13/24 18:00 10/18/24 04:56 1 STRIP Insulin Human Regular Q6HR SC 10/13/24 18:00 10/17/24 06:31 2 UNITS Dextrose 50 ml UD PRN IV 10/13/24 12:45 Aspirin 81 mg DAILY PO 10/14/24 10:00 10/18/24 09:40 81 MG Atorvastatin Calcium 20 mg HS PO 10/13/24 22:00 10/17/24 20:02 20 MG Cholecalciferol 1,000 unit DAILY PO 10/14/24 10:00 10/18/24 09:41 1,000 UNIT Empaglifozin 10 mg DAILY PO 10/13/24 13:48 10/18/24 09:41 10 MG Patient Own Medication 1 tab BID PO 10/13/24 22:00 Hold Dabigatran 150 mg BID PO 10/13/24 22:00 10/17/24 20:02 150 MG Patient Own Medication 1 tab DAILY PO 10/14/24 10:00 Ceftriaxone Sodium 50 ml @ 100 mls/hr DAILY@09 IV 10/13/24 12:45 10/18/24 09:37 100 MLS/HR Ascorbic Acid 500 mg BID PO 10/15/24 10:00 10/18/24 09:41 500 MG Multivitamins/ Minerals 1 tab DAILY PO 10/15/24 10:00 10/18/24 09:41 1 TAB Albuterol 2.5 mg Q4HPRN PRN NEB 10/16/24 16:45 10/17/24 11:22 2.5 MG Ipratropium [place] 0.5 mg Q4HPRN PRN NEB 10/16/24 16:45 10/17/24 11:22 0.5 MG Midazolam HCl 50 ml @ 1 mls/hr Q24H IV 10/17/24 00:00 10/18/24 06:10 7 MLS/HR Levothyroxine Sodium 112 mcg QAM@0600 PO 10/17/24 13:30 10/18/24 04:55 112 MCG Furosemide 20 mg DAILY IV 10/18/24 10:00 10/18/24 09:40 20 MG Methylprednisolone Sodium Succinate 60 mg Q8HR IV 10/17/24 14:00 10/18/24 04:55 60 MG Purified Water 250 ml Q6HR GT 10/17/24 18:00 10/18/24 04:55 250 ML Enteral Nutritional Formula 1,000 ml 30ML/HR GT 10/17/24 13:30 Cancel Enteral Nutritional Formula 1,000 ml 50ML/HR GT 10/18/24 10:15 Examination: GENERAL:Normal, HEENT:Normal, NECK:Normal, LUNGS:Normal, LUNGS:Abnormal (intubated), CVS:Normal, ABDOMEN:Normal, MSK:Normal, SKIN:Normal, NEURO:Normal, :Normal laboratory and microbiology Laboratory Tests 10/18/24 04:30 Test 10/18/24 04:30 Range/Units Serum Glucose 125 H 74-106 mg/dL Microbiology Date/Time Source Procedure Growth Status 10/13/24 17:20 Nose MRSA Screen - Final Complete 10/13/24 02:53 Urine - [place] Urine Culture - Final Complete 10/13/24 02:53 Blood Blood Culture - Final NO GROWTH AFTER 5 DAYS OF INCUBATION. Complete Problem List/Assessment/Plan Problem List/Assessment/Plan * Acute on chronic respiratory failure: on acv, cpap trial in am * Acute on chronic systolic heart failure: lasix iv * Chronic obstructive pulmonary disease with exacerbation: iv steroids * Hypertension. * Status post pacemaker. * Coronary artery disease, status post percutaneous transluminal coronary * Atrial fibrillation with secondary hypercoagulable state: hold pradaxa today * uncontrolled Hypothyroidism: iv levothyroxine * Questionable pneumonia, gram-positive, gram-negative with sepsis: iv rocephin * Tobacco abuse, * transaminitis: improved Plan discussed with: Other (rn) My Orders My Orders Orders - ED CROWDER MD Procedure Category Date Status Time Methylprednisolone PHA 10/18/24 Verified Sod Succ (Solu Medrol 14:00 Cpap Trial For Am ORDERS 10/18/24 Verified 10:55 Basic Metabolic Panel LAB 10/19/24 Verified 06:00 Complete Blood Count LAB 10/19/24 Verified 06:00 Magnesium LAB 10/19/24 Verified 05:00 Chest Portable XY 10/19/24 Verified 06:00 Abg W/ Co-Ox RT 10/19/24 Verified 06:00 Dietary Evaluation Review Comments: 1) Initiate MVI qd 2) Initiate vitamin C @ 500 mg bid and zinc sulfate @ 220 mg qd for 7-10 days 3) If patient remains NPO > 7 days, consider EN/TPN to meet at least 75% of estimated daily needs 4) If GI route is preferred, consider Vital AF 1.2 @ 40 mL/hr goal rate as tolerated d/t increased protein needs secondary to hypermetabolic state r/t wounds and intubation. Flush with 200 mL Q6H. TF regimen will provide 1152 kcals, 72g Pro, and 1579 mL free H2O (including flushes) per 24 hrs. Goal rate will meet ~90% estimated energy needs and ~86% estimated protein needs 5) Advance to cardiac diet when medically feasible, pending ST approval 6) Continue to monitor I&O, labs, and skin integrity Expected Outcomes/Goals: 1) Patient to receive nutritional support within 7 days of NPO status 2) labs and wounds to improve 3) diet to advance 4) f/u in 2-3 days Critical Care Time (mins): 81 (critical care time excluding procedures is 81 mins) Date of Service: October 18, 2024 Billing Provider: ED CROWDER MD Common Visit Codes: [id number] CARE 30-74 MIN, [id number] CARE-EACH +30MIN ED CROWDER MD October 18, 2024 11:05
[2024-10-18] MEDS ORDERED: LEVOTHYROXINE SODIUM 100 MCG/5 ML INJ IV ONE (11:15)
[2024-10-18] MEDS: Vital AF 1.2 Cal 1 liter bottle GT SCH (13:40)
[2024-10-18] MEDS: methylPREDNISolone SOD SUCC 125 MG/2 ML VL IV SCH (14:11)
[2024-10-18] MEDS: SERTRALINE HCL 50 MG TAB PO ONE (17:50)
[2024-10-19] VITALS (108 sets, daily range): BP systolic 95–139; BP diastolic 53–95; PULSE 63–157; RESP 11–21; TEMP 97.9–99.3; O2SAT 93–100
[2024-10-19 05:05] LABS: Basophils # (auto) 0 10 ^3/uL (0-0.2); Basophils % (auto) 0.1 % (0.0-2.0); Eosinophils # (auto) 0 10 ^3/uL (0-0.8); Hematocrit 47.3 % (36.0-46.0); Hemoglobin 14.7 g/dL (12.2-16.2); Lymphocytes # (auto) 0.6 10 ^3/uL (0.4-5.4); Lymphocytes % (auto) 5.6 % (10.0-50.0); Mean Corpuscular Hemoglobin 23.3 pg (28.0-32.0); Mean Corpuscular Hgb Conc. 31.1 g/dL (32.0-36.0); Mean Corpuscular Volume 74.9 fL (80.0-100.0); Monocytes # (auto) 0.4 10 ^3/uL (0-1.3); Monocytes % (auto) 3.9 % (0.0-12.0); Neutrophils # (auto) 9.5 10 ^3/uL (1.6-8.6); Neutrophils % (auto) 90.4 % (37.0-80.0); Platelet Count (auto) 323 10^3/uL (140-450); Red Blood Cells 6.32 10^6/uL (4.0-5.20); White Blood Cell 10.5 10^3/uL (4.4-10.8)
--- NOTE | 2024-10-19 05:08 | DVH ---
EXAM: XR Chest, 1 View CLINICAL INDICATION: RESP FAILURE TECHNIQUE: Frontal view of the chest. COMPARISON: XY CHEST PORTABLE on DOS: 10/18/24, XY CHEST PORTABLE on DOS: 10/17/24, XY CHEST PORTABLE on DOS: 10/17/24, XY CHEST PORTABLE on DOS: 10/16/24, XY CHEST PORTABLE on DOS: 10/15/24 FINDINGS: LUNGS AND PLEURAL SPACES: Right pleural effusion. HEART: Cardiomegaly with mild congestion. MEDIASTINUM: Unremarkable. Normal mediastinal contour. BONES/JOINTS: Unremarkable. No acute fracture. TUBES, LINES AND DEVICES: Left-sided cardiac pacemaker. Enteric tube tip cannot be seen but is bel ow the diaphragm. The endotracheal tube (ETT) is in satisfactory position. Right internal jugular c entral venous catheter tip in the superior vena cava. OTHER FINDINGS: . . . IMPRESSION: 1. Cardiomegaly with mild congestion. 2. Right pleural effusion.
[2024-10-19 05:13] LABS: Potassium 4.8 mmol/L (3.5-5.1); Sodium 142 mmol/L (136-145)
[2024-10-19 05:14] LABS: Anion Gap 8 (5-15); Calcium 9.2 mg/dL (8.7-10.4); Carbon Dioxide 25 mmol/L (20-31)
[2024-10-19 05:17] LABS: Chloride 109 mmol/L (98-107)
[2024-10-19 05:19] LABS: BUN/Creatinine Ratio 44.9 (10.0-20.0); Glucose 103 mg/dL (74-106)
[2024-10-19 05:20] LABS: Magnesium 2.2 mg/dL (1.6-2.6)
[2024-10-19 05:54] LABS: Blood Urea Nitrogen 35 mg/dL (9-23)
[2024-10-19 06:41] LABS: Base Excess -2.8 mmol/L (-2.0-3.0)
[2024-10-19] MEDS: [UNRECOGNIZED DRUG - OTHER] GT SCH (06:53)
[2024-10-19] MEDS: SERTRALINE HCL 50 MG TAB PO SCH (09:09)
[2024-10-19] MEDS ORDERED: LEVOTHYROXINE SODIUM 100 MCG/5 ML INJ IV SCH (10:00)
--- NOTE | 2024-10-19 11:16 | DVHPN2 ---
Progress Note Date Seen: October 19, 2024 Medical Necessity Reason Pt with a Central, PICC or Fol: Yes The following are medically ne: Central Line, Manuel Catheter Reason for manuel catheter: Strict I&O Subjective Patient reports: No new complaints Review of Systems: HEENT:Normal, CVS:Normal, RESPIRATORY:Normal, GI:Normal, :Normal, MSK:Normal, NEURO:Normal Objective vital signs Vital Sign Date Time Temp Pulse Resp B/P (MAP) Pulse Ox O2 Delivery O2 Flow Rate FiO2 10/19/24 10:45 99.0 80 20 113/61 (78) 95 210.2 10/19/24 08:00 Mechanical Ventilator+ 30 30 Total Intake and Output 10/18/24 10/18/24 10/19/24 15:00 23:00 07:00 Intake Total 212.608 ml 292.608 ml 282.918 ml Output Total 1550 ml 650 ml Balance 212.608 ml -1257.392 ml -367.082 ml medications Current Medications Medications Dose Ordered Sig/Joey Route Start Time Stop Time Status Last Admin Dose Admin Norepinephrine Bitartrate 250 ml @ 3.75 mls/hr Q24H IV 10/13/24 03:00 10/17/24 04:54 3.75 MLS/HR Propofol 100 ml @ 1.769 mls/ hr Q24H IV 10/13/24 06:30 10/18/24 20:45 7.076 MLS/HR Enoxaparin Sodium 40 mg DAILY SC 10/14/24 10:00 10/19/24 09:09 40 MG Acetaminophen 650 mg Q6HP PRN PO 10/13/24 12:45 Nitroglycerin 0.4 mg Q5MINP PRN SL 10/13/24 12:45 Morphine Sulfate 2 mg Q30M PRN IV 10/13/24 12:45 Diagnostic Test (Pha) 1 strip Q6HR 10/13/24 18:00 10/19/24 05:56 1 STRIP Insulin Human Regular Q6HR SC 10/13/24 18:00 10/17/24 06:31 2 UNITS Dextrose 50 ml UD PRN IV 10/13/24 12:45 Aspirin 81 mg DAILY PO 10/14/24 10:00 10/19/24 09:09 81 MG Atorvastatin Calcium 20 mg HS PO 10/13/24 22:00 10/18/24 21:25 20 MG Empaglifozin 10 mg DAILY PO 10/13/24 13:48 10/18/24 09:41 10 MG Patient Own Medication 1 tab BID PO 10/13/24 22:00 Hold Ceftriaxone Sodium 50 ml @ 100 mls/hr DAILY@09 IV 10/13/24 12:45 10/19/24 09:40 100 MLS/HR Albuterol 2.5 mg Q4HPRN PRN NEB 10/16/24 16:45 10/19/24 06:27 2.5 MG Ipratropium [place] 0.5 mg Q4HPRN PRN NEB 10/16/24 16:45 10/19/24 06:27 0.5 MG Midazolam HCl 50 ml @ 1 mls/hr Q24H IV 10/17/24 00:00 10/19/24 04:19 6 MLS/HR Furosemide 20 mg DAILY IV 10/18/24 10:00 10/19/24 09:08 20 MG Enteral Nutritional Formula 1,000 ml 30ML/HR GT 10/17/24 13:30 Cancel Enteral Nutritional Formula 1,000 ml 50ML/HR GT 10/18/24 10:15 10/18/24 13:40 1,000 ML Methylprednisolone Sodium Succinate 40 mg Q8HR IV 10/18/24 14:00 10/19/24 05:59 40 MG Levothyroxine Sodium 100 mcg DAILY IV 10/19/24 10:00 Cancel Sertraline HCl 50 mg DAILY PO 10/19/24 10:00 10/19/24 09:09 50 MG Patient Own Medication 1 QAM GT 10/19/24 07:00 10/19/24 06:53 1 Examination: GENERAL:Normal, HEENT:Normal, NECK:Normal, LUNGS:Normal, LUNGS:Abnormal (intubated), CVS:Normal, ABDOMEN:Normal, MSK:Normal, SKIN:Normal, NEURO:Normal, :Normal laboratory and microbiology Laboratory Tests 10/19/24 04:30 Test 10/19/24 04:30 Range/Units Serum Glucose 103 74-106 mg/dL Microbiology Date/Time Source Procedure Growth Status 10/17/24 00:00 Sputum Gram Stain - Final Resulted 10/17/24 00:00 Sputum Respiratory Culture - Preliminary Resulted 10/13/24 17:20 Nose MRSA Screen - Final Complete 10/13/24 02:53 Urine - [place] Urine Culture - Final Complete 10/13/24 02:53 Blood Blood Culture - Final NO GROWTH AFTER 5 DAYS OF INCUBATION. Complete Problem List/Assessment/Plan Problem List/Assessment/Plan * Acute on chronic respiratory failure: on acv, cpap trial * Acute on chronic systolic heart failure: lasix iv * Chronic obstructive pulmonary disease with exacerbation: iv steroids * Hypertension. * Status post pacemaker. * Coronary artery disease, status post percutaneous transluminal coronary * Atrial fibrillation with secondary hypercoagulable state: hold pradaxa today * uncontrolled Hypothyroidism: iv levothyroxine, resume home meds * Questionable pneumonia, gram-positive, gram-negative with sepsis: iv rocephin * Tobacco abuse, * transaminitis: improved Plan discussed with: Other (rn) My Orders My Orders Orders - ED CROWDER MD Procedure Category Date Status Time Sertraline Hcl PHA 10/19/24 In Process (Zoloft) 10:00 Patients Own PHA 10/19/24 In Process Medication 07:00 Furosemide Injection PHA 10/19/24 In Process (Lasix Injection) 11:15 Cpap/Sed Vacation Med ORDERS 10/19/24 Verified Weaning 11:11 Albuterol Medneb PHA 10/19/24 Verified (Ventolin Medneb) 14:00 Ipratropium [place] PHA 10/19/24 Verified (Atrovent Medneb) 14:00 Basic Metabolic Panel LAB 10/20/24 Verified 06:00 Complete Blood Count LAB 10/20/24 Verified 06:00 Chest Portable XY 10/20/24 Verified 06:00 Dietary Evaluation Review Comments: 1) Initiate MVI qd 2) Initiate vitamin C @ 500 mg bid and zinc sulfate @ 220 mg qd for 7-10 days 3) If patient remains NPO > 7 days, consider EN/TPN to meet at least 75% of estimated daily needs 4) If GI route is preferred, consider Vital AF 1.2 @ 40 mL/hr goal rate as tolerated d/t increased protein needs secondary to hypermetabolic state r/t wounds and intubation. Flush with 200 mL Q6H. TF regimen will provide 1152 kcals, 72g Pro, and 1579 mL free H2O (including flushes) per 24 hrs. Goal rate will meet ~90% estimated energy needs and ~86% estimated protein needs 5) Advance to cardiac diet when medically feasible, pending ST approval 6) Continue to monitor I&O, labs, and skin integrity Expected Outcomes/Goals: 1) Patient to receive nutritional support within 7 days of NPO status 2) labs and wounds to improve 3) diet to advance 4) f/u in 2-3 days Critical Care Time (mins): 82 (critical care time including cpap trial monitoring is 82 mins) Date of Service: October 19, 2024 Billing Provider: ED CROWDER MD Common Visit Codes: [id number] CARE 30-74 MIN, [id number] CARE-EACH +30MIN ED CROWDER MD October 19, 2024 11:16
[2024-10-19] MEDS: FUROSEMIDE 20 MG/2 ML VIAL IV ONE (11:19)
--- NOTE | 2024-10-19 17:15 | DVHDS2 ---
Discharge Summary Date of Admission October 13, 2024 at 12:31 Date of Discharge: October 19, 2024 Labs/Diagnostic Data: Laboratory Results Test 10/19/24 11:29 10/19/24 06:28 10/19/24 04:30 10/18/24 04:30 POC Glucose 121 mg/dl (70-106) Blood Gas Specimen Type Arterial Blood Gas Sample Site Left radial Blood Gas Patient Temperature 37.0 Arterial Blood Date Drawn [id number] Arterial Blood pH 7.403 (7.350-7.450) Arterial Blood Partial Pressure CO2 34.5 mmHg (32.0-45.0) Arterial Blood Partial Pressure O2 79.0 mmHg (83.0-108.0) Arterial Blood HCO3 21.0 mmol/L (21.0-28.0) Arterial Blood Oxygen Saturation 95.3 % (94.0-98.0) Arterial Blood Base Excess -2.8 mmol/L (-2.0-3.0) Arterial Blood Oxyhemoglobin 93.8 % (94.0-98.0) Arterial Blood Carboxyhemoglobin 0.9 % (0.5-1.5) Arterial Blood Methemoglobin 0.7 % (0.0-1.5) Edwin Test Modified Blood Gas Total Hemoglobin 16.00 g/dL (12.0-16.0) Blood Gas Set Respiration Rate 20.0 Blood Gas Modality Vent - ac FiO2 % 30.0 Blood Gas Tidal Volume 450.0 Blood Gas PEEP or CPAP 5.0 White Blood Count 10.5 10^3/uL (4.4-10.8) Red Blood Count 6.32 10^6/uL (4.0-5.20) Hemoglobin 14.7 g/dL (12.2-16.2) Hematocrit 47.3 % (36.0-46.0) Mean Corpuscular Volume 74.9 fL (80.0-100.0) Mean Corpuscular Hemoglobin 23.3 pg (28.0-32.0) Mean Corpuscular Hemoglobin Concent 31.1 g/dL (32.0-36.0) Red Cell Distribution Width 21.0 % (11.8-14.3) Platelet Count 323 10^3/uL (140-450) Mean Platelet Volume 8.4 fL (6.9-10.8) Neutrophils (%) (Auto) 90.4 % (37.0-80.0) Lymphocytes (%) (Auto) 5.6 % (10.0-50.0) Monocytes (%) (Auto) 3.9 % (0.0-12.0) Eosinophils (%) (Auto) 0.0 % (0.0-7.0) Basophils (%) (Auto) 0.1 % (0.0-2.0) Neutrophils # (Auto) 9.5 10 ^3/uL (1.6-8.6) Lymphocytes # (Auto) 0.6 10 ^3/uL (0.4-5.4) Monocytes # (Auto) 0.4 10 ^3/uL (0-1.3) Eosinophils # (Auto) 0 10 ^3/uL (0-0.8) Basophils # (Auto) 0 10 ^3/uL (0-0.2) Nucleated Red Blood Cells 0.0 % Sodium Level 142 mmol/L (136-145) Potassium Level 4.8 mmol/L (3.5-5.1) Chloride Level 109 mmol/L (98-107) Carbon Dioxide Level 25 mmol/L (20-31) Anion Gap 8 (5-15) Blood Urea Nitrogen 35 mg/dL (9-23) Creatinine 0.78 mg/dL (0.550-1.02) Glomerular Filtration Rate Calc 77 mL/min (>90) BUN/Creatinine Ratio 44.9 (10.0-20.0) Serum Glucose 103 mg/dL (74-106) Calcium Level 9.2 mg/dL (8.7-10.4) Magnesium Level 2.2 mg/dL (1.6-2.6) Thyroid Stimulating Hormone (TSH) 4.27 uIU/mL (0.55-4.78) Total Bilirubin 0.3 mg/dL (0.2-1.0) Aspartate Amino Transferase (AST) 18 U/L (13-40) Alanine Aminotransferase (ALT) 26 U/L (7-40) Alkaline Phosphatase 67 U/L (46-116) Total Protein 5.6 g/dL (5.7-8.2) Albumin 3.6 g/dL (3.2-4.8) Test 10/17/24 01:07 10/16/24 23:11 10/16/24 20:00 10/16/24 14:39 Blood Gas Spontaneous Rate 20 Blood Gas Spontaneous Tidal Volume 602 Blood Gas EPAP 5 Blood Gas IPAP 12 Blood Gas Liter Flow 10.00 Blood Gas Pressure Support 7 Test 10/16/24 05:05 10/14/24 04:38 10/13/24 13:03 10/13/24 04:46 Platelet Estimate Adequate Hypochromasia (manual) Slight Anisocytosis (manual) Slight Microcytosis Moderate Troponin I High Sensitivity 18 ng/L (</=34) D-Dimer, Quantitative 0.41 mg/L FEU (0.0-0.49) Creatine Kinase 53 U/L (34-145) Lactic Acid Level 2.1 mmol/L (0.4-2.0) Test 10/13/24 03:52 10/13/24 03:47 10/13/24 02:53 10/13/24 02:46 Blood Gas Inspiratory Pressure 32.0 Bl Gas Inspiratory/Expiratory Ratio 1:2.7 Blood Gas Critical Value Read Back Yes Blood Gas Notified Whom robert Hernandez Blood Gas Notified Time [id number] Blood Gas Notified By Rt, nayeli akhtar Lipase 48 U/L (12-53) Urine Color Yellow (Yellow) Urine Clarity Clear (Clear) Urine pH 5.5 (5.0-9.0) Urine Specific [place] 1.025 (1.001-1.035) Urine Protein 1+ (Negative) Urine Ketones Negative (Negative) Urine Blood Trace /uL (Negative) Urine Nitrite Negative (Negative) Urine Bilirubin Negative (Negative) Urine Urobilinogen Normal mg/dL (Negative) Urine Leukocyte Esterase Negative /uL (Negative) Urine RBC 12 /hpf (0 - 4) Urine Microscopic WBC 1 /HPF (0-5) Urine Squamous Epithelial Cells None seen /hpf (<5) Urine Bacteria None seen /hpf (None Seen) Urine Glucose 4+ mg/dL (Normal) Prothrombin Time 20.1 sec (9.3-11.8) Prothrombin Time INR 2.03 (0.9-1.15) Activated Partial Thromboplast Time 48.8 SEC (24.5-34.5) Hemoglobin A1c 5.2 % A1C (<5.7) B-Type Natriuretic Peptide 397.75 pg/mL (0-100) Free Thyroxine (T4) Calculated 0.56 ng/dL (0.89-1.76) Free Triiodothyronine (T3) pg/mL 1.75 pg/mL (2.3-4.2) Other Laboratory Tests 10/19/24 04:30 Brief Hx & Hospital Course: SEE DICTATED NOTE Condition at Discharge: Guarded Final Diagnosis/Problems List ACUTE RESP FAILURE Discharge Disposition: Acute Care Facility Discharge Instruct/Medications Diet: See Comment Diet comment: TUBE FEEDINGS Activity: Bed rest Follow Up/Referral: FU WITH [facility] Medications: PER JUL Discharge Statement: "Patient was advised to return to the ER or call 911 if any headaches, dizziness, shortness of breath, chest pain, abdominal pain, bleeding, fevers, or worsening of medical condition. Patient was counseled about treatment plan, medications, possible side effects, patientverbalized understanding. All questions were answered to the best of my ability. This discharge took greater then 30 minutes in planning, reviewing documentation, counseling the patient, and discussing with other team members." ASSESSMENT ASSESSMENT Assessment ACUTE RESP FAILURE Date of Service: October 19, 2024 Billing Provider: ED CROWDER MD Common Visit Codes: 24842-[id number] CARE 30-74 MIN, 91126-[id number] CARE-EACH +30MIN ED CROWDER MD October 19, 2024 17:15
[2024-10-19] MEDS: ALBUTEROL SULF 2.5 MG/0.5ML(0.5%) NEB SOLN NEB SCH (18:26)
[2024-10-19] MEDS: IPRATROPIUM BROM 0.5 MG/2.5ML INH SOL NEB SCH (18:26)
--- NOTE | 2024-10-19 18:58 | DVHDS ---
DATE OF DISCHARGE: 10/19/2024 TRANSFER SUMMARY HISTORY OF PRESENT ILLNESS: The patient is an 79-year-old lady who is admitted with history of increasing shortness of breath and has history of COPD, coronary artery disease, hypothyroidism, atrial fibrillation, congestive heart failure, and hypertension. HOSPITAL COURSE: The patient was intubated and mechanically ventilated. The patient was noted to have low oxygen saturations. The patient was initially seen by Dr. Garcia as well as Dr. Guerrero. Echocardiogram done showed ejection fraction of 25% to 30%. The patient's white count was elevated to 19,000. It has now improved to 10,000. Her TSH was elevated at 61.2. Her liver enzymes were also elevated. The patient had a CT of the head that showed no acute intracranial process. Chest x-ray done showed evidence of COPD. The patient also had a mild right pleural effusion. The patient's blood cultures have been negative. Sputum culture so far has been showing no growth. The patient will now be transferred to [place] for further management. FINAL DIAGNOSES: * Acute on chronic respiratory failure. * Acute on chronic systolic heart failure. * COPD with exacerbation. * Hypertension. * History of pacemaker. * Coronary artery disease with previous PTCA. * Atrial fibrillation with secondary hypercoagulable state. * Uncontrolled hypothyroidism. * Questionable pneumonia with sepsis, gram-positive, gram-negative. * Tobacco abuse. * Transaminitis. Time spent in discharge planning and review of plan with the patient, family, and nursing. Critical care time spent, including CPAP trial today was 81 minutes. MD AN Reddy/AYDEE TID: [id number] RECEIPT: [id number]
[2024-10-19] MEDS: ENOXAPARIN SOD 60 MG/0.6 ML SYRINGE SC SCH (21:42)
[2024-10-20] VITALS (96 sets, daily range): BP systolic 86–117; BP diastolic 41–67; PULSE 69–106; RESP 15–25; TEMP 97.7–99.1; O2SAT 92–99
--- NOTE | 2024-10-20 05:58 | DVH ---
CHEST RADIOGRAPH Indication: COPD Technique: Single frontal view of the chest was obtained Comparison: XY CHEST PORTABLE on DOS: 10/19/24 FINDINGS: Lines and Tubes: The endotracheal tube terminates 6.2 cm above the marielena. The enteric tube courses b elow the left hemidiaphragm and the tip extends outside the field of view. AICD, unchanged. Right anne tral venous catheter terminates in the superior vena cava. Lungs: Mild pulmonary congestion is unchanged. Pleura: Stable right pleural effusion. No pneumothorax. Cardiomediastinal contours: Unremarkable Bones: Comminuted left proximal humerus fracture. IMPRESSION: 1. No significant interval change in position of the support lines and tubes or appearance of the riky [address].
[2024-10-20 06:47] LABS: Basophils # (auto) 0 10 ^3/uL (0-0.2); Basophils % (auto) 0.1 % (0.0-2.0); Eosinophils # (auto) 0 10 ^3/uL (0-0.8); Lymphocytes # (auto) 0.4 10 ^3/uL (0.4-5.4); Monocytes # (auto) 0.4 10 ^3/uL (0-1.3); Neutrophils # (auto) 8.9 10 ^3/uL (1.6-8.6); Platelet Count (auto) 442 10^3/uL (140-450); White Blood Cell 9.7 10^3/uL (4.4-10.8)
[2024-10-20 06:49] LABS: Eosinophils % (auto) 0.1 % (0.0-7.0); Hematocrit 47.2 % (36.0-46.0); Hemoglobin 15.6 g/dL (12.2-16.2); Lymphocytes % (auto) 4.5 % (10.0-50.0); Mean Corpuscular Hemoglobin 23.7 pg (28.0-32.0); Mean Corpuscular Volume 71.7 fL (80.0-100.0); Neutrophils % (auto) 91.3 % (37.0-80.0); Nucleated Red Blood Cells % 0.1 %; Red Blood Cells 6.59 10^6/uL (4.0-5.20)
[2024-10-20 06:53] LABS: Red Cell Distribution Width 20.1 % (11.8-14.3)
[2024-10-20 06:54] LABS: Anion Gap 9 (5-15); Calcium 10.2 mg/dL (8.7-10.4); Carbon Dioxide 29 mmol/L (20-31); Chloride 106 mmol/L (98-107); Potassium 3.8 mmol/L (3.5-5.1); Sodium 144 mmol/L (136-145)
[2024-10-20 07:00] LABS: BUN/Creatinine Ratio 42.9 (10.0-20.0)
[2024-10-20 07:03] LABS: Blood Urea Nitrogen 36 mg/dL (9-23); Glucose 134 mg/dL (74-106)
[2024-10-20] MEDS: PROPOFOL 100 ML IV SCH (08:30)
[2024-10-20 09:08] LABS: Base Excess 3.6 mmol/L (-2.0-3.0)
--- NOTE | 2024-10-20 10:12 | DVHPN2 ---
Progress Note Date Seen: October 20, 2024 Medical Necessity Reason Pt with a Central, PICC or Fol: Yes The following are medically ne: Central Line, Manuel Catheter Reason for manuel catheter: Strict I&O Subjective Patient reports: No new complaints Review of Systems: HEENT:Normal, CVS:Normal, RESPIRATORY:Normal, GI:Normal, :Normal, MSK:Normal, NEURO:Normal Objective vital signs Vital Sign Date Time Temp Pulse Resp B/P (MAP) Pulse Ox O2 Delivery O2 Flow Rate FiO2 10/20/24 09:30 99.0 77 20 92/52 (65) 94 210.2 10/20/24 08:00 Mechanical Ventilator+ 30 30 Total Intake and Output 10/19/24 10/19/24 10/20/24 15:00 23:00 07:00 Intake Total 102.456 ml 346.760 ml 486.615 ml Output Total 1900 ml 600 ml Balance 102.456 ml -1553.240 ml -113.385 ml medications Current Medications Medications Dose Ordered Sig/Joey Route Start Time Stop Time Status Last Admin Dose Admin Norepinephrine Bitartrate 250 ml @ 3.75 mls/hr Q24H IV 10/13/24 03:00 10/17/24 04:54 3.75 MLS/HR Acetaminophen 650 mg Q6HP PRN PO 10/13/24 12:45 Nitroglycerin 0.4 mg Q5MINP PRN SL 10/13/24 12:45 Morphine Sulfate 2 mg Q30M PRN IV 10/13/24 12:45 Diagnostic Test (Pha) 1 strip Q6HR 10/13/24 18:00 10/20/24 05:36 1 STRIP Insulin Human Regular Q6HR SC 10/13/24 18:00 10/17/24 06:31 2 UNITS Dextrose 50 ml UD PRN IV 10/13/24 12:45 Aspirin 81 mg DAILY PO 10/14/24 10:00 10/19/24 09:09 81 MG Atorvastatin Calcium 20 mg HS PO 10/13/24 22:00 10/19/24 21:42 20 MG Empaglifozin 10 mg DAILY PO 10/13/24 13:48 10/18/24 09:41 10 MG Ceftriaxone Sodium 50 ml @ 100 mls/hr DAILY@09 IV 10/13/24 12:45 10/20/24 08:29 100 MLS/HR Albuterol 2.5 mg Q4HPRN PRN NEB 10/16/24 16:45 10/19/24 06:27 2.5 MG Midazolam HCl 50 ml @ 1 mls/hr Q24H IV 10/17/24 00:00 10/20/24 04:42 7 MLS/HR Furosemide 20 mg DAILY IV 10/18/24 10:00 10/19/24 09:08 20 MG Enteral Nutritional Formula 1,000 ml 30ML/HR GT 10/17/24 13:30 Cancel Enteral Nutritional Formula 1,000 ml 50ML/HR GT 10/18/24 10:15 10/18/24 13:40 1,000 ML Methylprednisolone Sodium Succinate 40 mg Q8HR IV 10/18/24 14:00 10/20/24 05:36 40 MG Levothyroxine Sodium 100 mcg DAILY IV 10/19/24 10:00 Cancel Sertraline HCl 50 mg DAILY PO 10/19/24 10:00 10/19/24 09:09 50 MG Patient Own Medication 1 QAM GT 10/19/24 07:00 10/20/24 06:19 1 Albuterol 2.5 mg Q4HR NEB 10/19/24 14:00 10/20/24 10:10 2.5 MG Ipratropium [place] 0.5 mg Q4HR NEB 10/19/24 14:00 10/20/24 10:10 0.5 MG Enoxaparin Sodium 50 mg Q12HR SC 10/19/24 22:00 10/19/24 21:42 50 MG Propofol 100 ml @ 1.74 mls/hr Q24H IV 10/20/24 08:30 Examination: GENERAL:Normal, HEENT:Normal, NECK:Normal, LUNGS:Normal, LUNGS:Abnormal (INTUBATED), CVS:Normal, ABDOMEN:Normal, MSK:Normal, SKIN:Normal, NEURO:Normal, :Normal laboratory and microbiology Laboratory Tests 10/20/24 04:40 Test 10/20/24 04:40 Range/Units Serum Glucose 134 H 74-106 mg/dL Microbiology Date/Time Source Procedure Growth Status 10/17/24 00:00 Sputum Gram Stain - Final Complete 10/17/24 00:00 Sputum Respiratory Culture - Final Complete 10/13/24 17:20 Nose MRSA Screen - Final Complete 10/13/24 02:53 Urine - [place] Urine Culture - Final Complete 10/13/24 02:53 Blood Blood Culture - Final NO GROWTH AFTER 5 DAYS OF INCUBATION. Complete Problem List/Assessment/Plan Problem List/Assessment/Plan * Acute on chronic respiratory failure: on acv, cpap trial * Acute on chronic systolic heart failure: lasix iv * Chronic obstructive pulmonary disease with exacerbation: iv steroids * Hypertension. * Status post pacemaker. * Coronary artery disease, status post percutaneous transluminal coronary * Atrial fibrillation with secondary hypercoagulable state: hold pradaxa today, lovenox * uncontrolled Hypothyroidism: iv levothyroxine, resume home meds * Questionable pneumonia, gram-positive, gram-negative with sepsis: iv rocephin * Tobacco abuse, * transaminitis: improved stable for transfer to [place] ICU Plan discussed with: Other (rn) My Orders My Orders Orders - ED CROWDER MD Procedure Category Date Status Time Cpap/Sed Vacation Med ORDERS 10/19/24 Transmitted Weaning 11:11 Albuterol Medneb PHA 10/19/24 In Process (Ventolin Medneb) 14:00 Ipratropium Medneb PHA 10/19/24 In Process (Atrovent Medneb) 14:00 Chest Portable XY 10/20/24 Resulted 06:00 Discharge DISCHARGE 10/19/24 Transmitted 17:13 * Distribution Analyst CONS 10/19/24 Transmitted Consult Enoxaparin Sodium PHA 10/19/24 In Process (Lovenox) 22:00 Abg W/ Co-Ox RT 10/20/24 Logged 06:00 Propofol (Diprivan) PHA 10/20/24 In Process 08:30 * Distribution Analyst CONS 10/20/24 Transmitted Consult Dietary Evaluation Review Comments: 1) Initiate MVI qd 2) Initiate vitamin C @ 500 mg bid and zinc sulfate @ 220 mg qd for 7-10 days 3) If patient remains NPO > 7 days, consider EN/TPN to meet at least 75% of estimated daily needs 4) If GI route is preferred, consider Vital AF 1.2 @ 40 mL/hr goal rate as tolerated d/t increased protein needs secondary to hypermetabolic state r/t wounds and intubation. Flush with 200 mL Q6H. TF regimen will provide 1152 kcals, 72g Pro, and 1579 mL free H2O (including flushes) per 24 hrs. Goal rate will meet ~90% estimated energy needs and ~86% estimated protein needs 5) Advance to cardiac diet when medically feasible, pending ST approval 6) Continue to monitor I&O, labs, and skin integrity Expected Outcomes/Goals: 1) Patient to receive nutritional support within 7 days of NPO status 2) labs and wounds to improve 3) diet to advance 4) f/u in 2-3 days Critical Care Time (mins): 41 (critical care time excluding procedures is 41 mins) Date of Service: October 20, 2024 Billing Provider: ED CROWDER MD Common Visit Codes: [id number] CARE 30-74 MIN ED CROWDER MD October 20, 2024 10:12
== END 2024-10-20 21:22 | disposition short-term general hospital (02) | DRG 871 ==
LOC: EDBD 02:37 → ER 02:37 → OVERFLOW 12:31 → ICU CENTRL 17:00
PROVIDERS: ADMIT Internal Medicine; ATTEND Internal Medicine
PROC: 0BH17EZ Insertion of Endotracheal Airway into Trachea, Via Natural or Artificial Opening (ICD-10-PCS; principal; 2024-10-13)
PROC: 5A1945Z Respiratory Ventilation, 24-96 Consecutive Hours (ICD-10-PCS; 2024-10-13)
PROC: 02HV33Z Insertion of Infusion Device into Superior Vena Cava, Percutaneous Approach (ICD-10-PCS; 2024-10-13)
PROC: B548ZZA Ultrasonography of Superior Vena Cava, Guidance (ICD-10-PCS; 2024-10-13)
PROC: 0BH17EZ Insertion of Endotracheal Airway into Trachea, Via Natural or Artificial Opening (ICD-10-PCS; 2024-10-16)
PROC: 5A09357 Assistance with Respiratory Ventilation, Less than 24 Consecutive Hours, Continuous Positive Airway Pressure (ICD-10-PCS; 2024-10-16)
PROC: 5A1945Z Respiratory Ventilation, 24-96 Consecutive Hours (ICD-10-PCS; 2024-10-17)
DX: A41.59 Other Gram-negative sepsis (principal); G93.41 Metabolic encephalopathy; I50.23 Acute on chronic systolic (congestive) heart failure; J15.69 Pneumonia due to other Gram-negative bacteria; J15.9 Unspecified bacterial pneumonia; J96.21 Acute and chronic respiratory failure with hypoxia; N17.9 Acute kidney failure, unspecified; Z68.1 Body mass index [BMI] 19.9 or less, adult; J44.1 Chronic obstructive pulmonary disease with (acute) exacerbation; J44.0 Chronic obstructive pulmonary disease with (acute) lower respiratory infection; D68.69 Other thrombophilia; E87.29 Other acidosis; E11.9 Type 2 diabetes mellitus without complications; Z66 Do not resuscitate; I25.10 Atherosclerotic heart disease of native coronary artery without angina pectoris; I11.0 Hypertensive heart disease with heart failure; F17.210 Nicotine dependence, cigarettes, uncomplicated; J43.9 Emphysema, unspecified; I48.91 Unspecified atrial fibrillation; R74.01 Elevation of levels of liver transaminase levels; Z88.1 Allergy status to other antibiotic agents; Z88.5 Allergy status to narcotic agent; Z79.84 Long term (current) use of oral hypoglycemic drugs; Z79.899 Other long term (current) drug therapy; Z98.61 Coronary angioplasty status; Z95.810 Presence of automatic (implantable) cardiac defibrillator; Z86.16 Personal history of COVID-19; Z82.49 Family history of ischemic heart disease and other diseases of the circulatory system; Z82.5 Family history of asthma and other chronic lower respiratory diseases
CPT/HCPCS: 31500; 36415; 36556; 36600; 70450; 71045; 80048; 80053; 81001; 82550; 82805; 82962; 83036; 83605; 83690; 83735; 83880; 84439; 84443; 84481; 84484; 85025; 85379; 85610; 85730; 87040; 87070; 87081; 87086; 87205; 93005; 93306; 94003; 94640; 96365; 99291; G0378; J0330; J1100; J2704; J3480; J3490; J7042

== ENCOUNTER 2025-04-16 01:14 | Emergency (ER) | payer MEDICARE, OTHER ==
[~2025-04-16] VITALS: Ht 154.9 cm; Wt 50.0 kg
[~2025-04-16 01:14] MED LIST changes: +CICL160A2 IN; +IPRA0.03; +RISE35TA PO; +THYR120T14 PO; -THYR60TA PO
--- NOTE | 2025-04-16 01:33 | ED.PDOC ---
SOB-HPI HPI Comments 79 y/o F is BIBA for c/c of intermittent shortness of breath for the past 3 days. Per EMS personnel report, most recent onset of symptom woke the patient from her sleep, this morning. No relief with at-home breathing treatment use. She is compliant with her medications. Patient was found on scene pale, cool, and diaphoretic with a respiratory rate of 28 and SpO2 of 94% on her home oxygen. En route, patient was given 3 additional breathing treatments in addition to being placed on oxygen via nonrebreather mask at 8LPM. Patient denies any chest pain or further associated symptoms. Initial on scene vitals: Blood pressure: 142/89 Heart rate: 84 Respirator rate: 28 SpO2: 94% on 3LPM Past medical history: CAD, CHF, COPD with 3LPM home O2, HLD, HTN, IA Past surgical history: PTCA, AICD Discharge Summary Date of Admission October 13, 2024 at 12:31 Date of Discharge: October 19, 2024 FINAL DIAGNOSES: * Acute on chronic respiratory failure. * Acute on chronic systolic heart failure. * COPD with exacerbation. * Hypertension. * History of pacemaker. * Coronary artery disease with previous PTCA. * Atrial fibrillation with secondary hypercoagulable state. * Uncontrolled hypothyroidism. * Questionable pneumonia with sepsis, gram-positive, gram-negative. * Tobacco abuse. * Transaminitis. HANDLER: COPD EXACERBATION X 3 DAY. HPI: Poor Historian Past Medical History: Past Surgical History: REVIEW OF SYSTEMS: CONSTITUTIONAL: Denies acute: fever, diaphoresis, chills, HEAD: Denies acute: headache, photophobia Eyes: Denies acute: Double vision, vision loss, eye pain, eye discharge. EARS: Denies acute: tinnitus, hearing loss, ear discharge, ear pain, THROAT: Denies acute: sore throat, swelling, difficulty swallowing , pain with swallowing, change in voice. NECK: Denies acute: neck pain, neck swelling, stiff neck. HEART: Denies acute : chest pain, palpitations, LUNGS: Denies acute: , , cough, hemoptysis ABDOMEN: Denies acute: abdominal pain, Nausea, Vomiting, diarrhea, melena , hematemesis, hematochezia SKIN: Denies acute: rash, redness, lesions, itchiness. EXTREMITIES: Denies acute: calf pain, numbness, tingling, weakness, denies pain in extremity. Denies acute: Low back pain. Neuro: Denies acute: focal neurological deficit, motor or sensory focal neurological deficit, tremors, seizure like activity, confusion, dizziness, change in mental status, loss of bowel or bladder function, cauda equina like symptoms. : Denies acute: dysuria, hematuria, flank pain, increase in urinary frequency. PSYCH: Denies acute: hallucination, suicidal ideation, homicidal ideation. FEMALE: Denies acute: abnormal vaginal bleeding, foul odor, unusual discharge. PHYSICAL EXAM: General: ----moderate----acute distress, awake and alert. Head: normocephalic, atraumatic. No raccoon's eyes, no mack sign. Neck: supple, trachea is midline, no swelling. Throat: Normal phonation. Eyes:, no erythema, no purulent discharge, no proptosis, no icterus. Heart: regular rate, regular rhythm, no significant murmur appreciated. Lungs: Mild to moderate respiratory distress, states she feels better Able to speak in full sentences. Bilateral wheezing, no rhonchi, no crackles. No stridors Abdomen: non tender to palpation, non distended, soft, no guarding, no rebound, + bowel sounds. Neuro: Awake, Alert, oriented to name, self, situation, follows commands GCS=15. Speech is normal. Skin: no petechia, no purpura, no cyanosis, non-pale, not jaundice. Lower extremities: --1/4 bilateral- Pitting edema no deformity, no focal swelling, no calf TTP. Makes eye contact. moves all four extremities. Face: no apparent facial droop. ED COURSE: DISCLAIMER: This medical document was created using an electronic medical record system with voice recognition software and computerized dictation system. Although this document has been carefully reviewed, there might still be some phonetic and typographical errors. Occasional wrong-word or "sound-alike" substitutions may have occurred due to the inherent limitations of voice recognition software. These areas are purely typographical due to imperfections of the software programs and do not reflect any compromise in the patient's medical care. Please read the chart carefully and recognize, using context, where these substitutions have occurred. Time Seen by MD: 01:20 Primary Care Provider: Mukund Reviewed notes: Boiler Repairman Notes, Allergies Information Source: Patient, Emergency Med Personnel Past Medical History PAST MEDICAL HISTORY: CAD, CHF, COPD, High Lipids, HTN, IA, Thyroid Surgical History: Pacemaker, PTCA AUTOMOTIVE PARTS COORDINATOR History: Denies all AUTOMOTIVE PARTS COORDINATOR Hx Family History Family History: Reviewed,noncontributory to illness Social History Smoker: Cigarettes, Less Than 1 Pack/Day Alcohol: Denies ETOH Use Drugs: Denies Drug Use Lives In: Home EKG EKG : Pulse Rate (adult): 87 [place]: Normal Cardiac Rhythm: NSR Block: None Hypertrophy: None ST: Normal Was a procedure done? Was a procedure done?: No Differential Dx Differential Diagnosis: Other (DDx include ACS, unstable angina, anxiety, PE, pneumothroax, neoplasm, cardiac ischemia, COPD, asthma, CHF, pleural effusion, tobacco abuse, pneumonia, hypoxia, hypercapnia, anemia., infection/sepsis., pulmonary edema. Asthma, Cardiac tamponade, infection.) X-Ray, Labs, Meds, VS Vital Signs Date Time Temp Pulse Resp B/P (MAP) Pulse Ox O2 Delivery O2 Flow Rate FiO2 04/16/25 06:48 98.1 91 18 115/52 (73) 96 98.1 04/16/25 04:48 102/55 04/16/25 01:56 98.1 93 20 117/75 (89) 97 98.1 04/16/25 01:56 93 20 93 Nasal Cannula* 2 28 04/16/25 01:56 87 04/16/25 01:45 87 04/16/25 01:45 22 92 Simple Mask* 10 99 04/16/25 01:39 98.1 88 28 151/81 99 98.1 Lab Test 04/16/25 05:26 04/16/25 04:34 04/16/25 02:43 04/16/25 01:30 Range/Units Lactic Acid Level 1.2 0.4-2.0 mmol/L Troponin I High Sensitivity 25 19 11 </=34 ng/L White Blood Count 14.4 H 4.4-10.8 10^3/uL Red Blood Count 7.20 H 4.0-5.20 10^6/uL Hemoglobin 15.5 12.2-16.2 g/dL Hematocrit 49.6 H 36.0-46.0 % Mean Corpuscular Volume 68.8 L 80.0-100.0 fL Mean Corpuscular Hemoglobin 21.6 L 28.0-32.0 pg Mean Corpuscular Hemoglobin Concent 31.3 L 32.0-36.0 g/dL Red Cell Distribution Width 19.4 H 11.8-14.3 % Platelet Count 534 H 140-450 10^3/uL Mean Platelet Volume 8.6 6.9-10.8 fL Neutrophils (%) (Auto) 74.0 37.0-80.0 % Lymphocytes (%) (Auto) 16.7 10.0-50.0 % Monocytes (%) (Auto) 6.5 0.0-12.0 % Eosinophils (%) (Auto) 2.3 0.0-7.0 % Basophils (%) (Auto) 0.5 0.0-2.0 % Neutrophils # (Auto) 10.7 H 1.6-8.6 10 ^3/uL Lymphocytes # (Auto) 2.4 0.4-5.4 10 ^3/uL Monocytes # (Auto) 0.9 0-1.3 10 ^3/uL Eosinophils # (Auto) 0.3 0-0.8 10 ^3/uL Basophils # (Auto) 0.1 0-0.2 10 ^3/uL Nucleated Red Blood Cells 0.1 % Sodium Level 144 136-145 mmol/L Potassium Level 4.9 3.5-5.1 mmol/L Chloride Level 104 98-107 mmol/L Carbon Dioxide Level 33 H 20-31 mmol/L Anion Gap 7 5-15 Blood Urea Nitrogen 20 9-23 mg/dL Creatinine 1.01 0.550-1.02 mg/dL Glomerular Filtration Rate Calc 56 >90 mL/min BUN/Creatinine Ratio 19.8 10.0-20.0 Serum Glucose 120 H 74-106 mg/dL Calcium Level 9.5 8.7-10.4 mg/dL Total Bilirubin 0.4 0.2-1.0 mg/dL Aspartate Amino Transferase (AST) 177 H 13-40 U/L Alanine Aminotransferase (ALT) 155 H 7-40 U/L Alkaline Phosphatase 96 46-116 U/L B-Type Natriuretic Peptide 690.20 0-100 pg/mL Total Protein 6.6 5.7-8.2 g/dL Albumin 4.1 3.2-4.8 g/dL Current Medications Medications (Trade) Dose Ordered Sig/Joey Route Start Time Stop Time Status Last Admin Albuterol (Ventolin Medneb) 2.5 mg ONCE ONCE NEB 04/16/25 01:30 04/16/25 01:31 DC 04/16/25 01:44 Ipratropium [place] (Atrovent Medneb) 1 mg ONCE ONCE NEB 04/16/25 01:30 04/16/25 01:31 DC 04/16/25 01:44 Methylprednisolone Sodium Succinate (Solu Medrol) 125 mg ONCE ONCE IV 04/16/25 01:30 04/16/25 01:31 DC 04/16/25 02:04 Ceftriaxone Sodium 50 ml @ 100 mls/hr ONCE ONCE IV 04/16/25 04:45 04/16/25 05:14 DC 04/16/25 04:58 [place] [address] Ph: [phone] DIAGNOSTIC IMAGING Diagnostic Imaging Report : [id number] Signed PATIENT: RONN NAYLOR ACCT: [id number] UNIT: [id number] : 1945 LOC: ER ROOM / BED: / AGE / SEX: 79 / F ADM STATUS: REG ER SERVICE 1 ORDERING PHYSICIAN: JAMES NELSON DO PROCEDURE(s): CXRP - CHEST PORTABLE REASON: sob ORDER NUMBER(s): [id number], ACCESSION NUMBER(s): [id number] CHEST RADIOGRAPH Indication: sob Technique: Single frontal view of the chest was obtained COMPARISON: XY CHEST PORTABLE on DOS: 10/20/24, XY CHEST PORTABLE on DOS: 10/19/24, XY CHEST PORTABLE on DOS: 10/18/24, XY CHEST PORTABLE on DOS: 10/17/24, XY CHEST PORTABLE on DOS: 10/17/24 FINDINGS: Left chest wall defibrillator. Cardiac silhouette is borderline in size. Mild diffuse prominence of the pulmonary vasculature and interstitium. No dense focal airspace disease. Probable trace bilateral pleural effusions Bones and soft tissues demonstrate no significant abnormality. IMPRESSION: Borderline cardiomegaly with pulmonary venous congestion and trace bilateral pleural effusions. ATED BY: CESAR LAWRENCE MD DICTATED DATE/TIME: 04/16/25202 SIGNED BY: CESAR LAWRENCE MD SIGNED DATE/TIME: 04/16/25202 CC: Time of 1ST Reevaluation: 01:20 Reevaluation 1ST: Unchanged Time of 2ND Reevaluation: 04:39 (The case was discussed with the [place] admitting team (HPI, physical exam, labs and diagnostic tests that were available at the time of disposition, ED course, treatment plan) on the phone. They agreed to transfer the patient to their service by ALS for further evaluation and treatment. Dr. abdalla--. Authorization number is--[id number]) Patient Education/Counseling: Diagnosis, Treatment Family Education/Counseling: No Family Present Comments MDM: patient presented with the above HPI.--acute respiratory distress---workup was initiated. patient was found with the above mentioned diagnosis. the following medications were ordered: please refer to order lists of meds and tests obtained by myself Dr. Nelson. Patient ED course and VS have been stabilized. Patient has been reassessed in the ED and remained in a stable condition. Pertinent incidental findings were discussed with the patient and/or family. Patient/family voices understanding and is agreeable with plan. Patient has been observed in the ED adequate length of time to insure improvement/stability. Escalation of care considered: Consideration of escalation to observation or admission Patient was given , Rocephin, Lasix, DuoNeb treatment, Solu-Medrol Patient was transferred to [facility] per insurance requirement to the medicine team for further evaluation and treatment of their presentation. All the reports of any imaging studies that were ordered by myself were reviewed by myself. SEPSIS Sepsis Screen Physician Orders Commodity Merchant (04/16/25 ) Urinalysis (04/16/25 01:22) Chest Portable (04/16/25 01:22) Electrocardigram (04/16/25 01:22) Imaging Transfer Request (04/16/25 04:34) Vital Signs Date Time Temp Pulse Resp B/P (MAP) Pulse Ox O2 Delivery O2 Flow Rate FiO2 04/16/25 06:48 98.1 91 18 115/52 (73) 96 98.1 04/16/25 04:48 102/55 04/16/25 01:56 98.1 93 20 117/75 (89) 97 98.1 04/16/25 01:56 93 20 93 Nasal Cannula* 2 28 04/16/25 01:56 87 04/16/25 01:45 87 04/16/25 01:45 22 92 Simple Mask* 10 99 04/16/25 01:39 98.1 88 28 151/81 99 98.1 Laboratory Tests Test 04/16/25 01:30 04/16/25 05:26 White Blood Count 14.4 10^3/uL (4.4-10.8) H Lactic Acid Level 1.2 mmol/L (0.4-2.0) Departure 1 Departure Time of Disposition: 01:41 Impression: Primary Impression: COPD exacerbation Additional Impressions: Acute respiratory distress CHF exacerbation Pleural effusion Disposition: 02 SHORT TERM HOSPITAL Admit to: [facility] Condition: Guarded Discharged With: Self Critical Care Note Critical Care Time?: Yes (45 min-critical care time only) Critical care comment: Due to a high probability of clinically significant, life threatening deterioration, the patient required my highest level of preparedness to intervene emergently and I personally spent this critical care time directly and personally managing the patient. This critical care time included obtaining a history; examining the patient; pulse oximetry; ordering and review of studies; arranging urgent treatment with development of a management plan; evaluation of patient's response to treatment; frequent reassessment; and, discussions with other providers. This critical care time was performed to assess and manage the high probability of imminent, life-threatening deterioration that could result in multi-organ failure. It was exclusive of separately billable procedures and treating other patients and teaching time. Please see my other sections and the rest of the note for further information on patient assessment and treatment. Heart Score Heart Score: Heart Score Response (Comments) Value History Slightly Suspicious 0 EKG Normal 0 Age >65 2 Risk Factors >3 or Hx ASHD 2 Troponin Normal limit 0 Total 4 I personally scribed for JAMES NELSON DO ([email or web address]) on 04/16/25 at 01:33. Electronically submitted by Mele Mccoy ([email or web address]). I personally scribed for JAMES NELSON DO ([email or web address]) on 04/16/25 at 01:36. Electronically submitted by Mele Mccoy ([email or web address]). I personally scribed for JAMES NELSON DO ([email or web address]) on 04/16/25 at 01:56. Electronically submitted by Mele Mccoy ([email or web address]). I personally scribed for JAMES NELSON DO ([email or web address]) on 04/16/25 at 02:19. Electronically submitted by Mele Mccoy ([email or web address]). JAMES NELSON DO Apr 16, 2025 01:33
[2025-04-16 01:41] LABS: Hematocrit 49.6 % (36.0-46.0); Hemoglobin 15.5 g/dL (12.2-16.2); Mean Corpuscular Hemoglobin 21.6 pg (28.0-32.0); Mean Corpuscular Volume 68.8 fL (80.0-100.0); Nucleated Red Blood Cells % 0.1 %
[2025-04-16] MEDS: IPRATROPIUM BROM 0.5 MG/2.5ML INH SOL NEB ONE (01:44)
[2025-04-16] MEDS: ALBUTEROL SULF 2.5 MG/0.5ML(0.5%) NEB SOLN NEB ONE (01:44)
[2025-04-16 01:56] VITALS: PULSE 93; RESP 20; O2SAT 93
[2025-04-16 01:57] LABS: Albumin 4.1 g/dL (3.2-4.8); Alkaline Phosphatase 96 U/L (46-116); Anion Gap 7 (5-15); BUN/Creatinine Ratio 19.8 (10.0-20.0); Blood Urea Nitrogen 20 mg/dL (9-23); Calcium 9.5 mg/dL (8.7-10.4); Chloride 104 mmol/L (98-107); Potassium 4.9 mmol/L (3.5-5.1); Sodium 144 mmol/L (136-145); Total Protein 6.6 g/dL (5.7-8.2)
[2025-04-16 01:58] LABS: Bilirubin, Total 0.4 mg/dL (0.2-1.0)
[2025-04-16 02:00] LABS: Alanine Aminotransferase 155 U/L (7-40); Carbon Dioxide 33 mmol/L (20-31); Glucose 120 mg/dL (74-106)
[2025-04-16] MEDS ORDERED: methylPREDNISolone SOD SUCC 125 MG/2 ML VL ONE (02:04)
[2025-04-16] MEDS: methylPREDNISolone SOD SUCC 125 MG/2 ML VL IV ONE (02:04)
--- NOTE | 2025-04-16 02:05 | DVH ---
CHEST RADIOGRAPH Indication: sob Technique: Single frontal view of the chest was obtained COMPARISON: XY CHEST PORTABLE on DOS: 10/20/24, XY CHEST PORTABLE on DOS: 10/19/24, XY CHEST PORTABLE on DOS: 10/18/24, XY CHEST PORTABLE on DOS: 10/17/24, XY CHEST PORTABLE on DOS: 10/17/24 FINDINGS: Left chest wall defibrillator. Cardiac silhouette is borderline in size. Mild diffuse prominence of the pulmonary vasculature and interstitium. No dense focal airspace disease. Probable trace bilateral pleural effusions Bones and soft tissues demonstrate no significant abnormality. IMPRESSION: Borderline cardiomegaly with pulmonary venous congestion and trace bilateral pleural effusions.
[2025-04-16] MEDS: FUROSEMIDE 40 MG/4 ML VIAL IV ONE (04:48)
[2025-04-16 06:48] VITALS: BP 115/52; PULSE 91; RESP 18; TEMP 98.1; O2SAT 96
== END 2025-04-16 06:48 | disposition short-term general hospital (02) ==
LOC: ER 01:14 → EDBD 01:14 → ER 06:48
DX: J44.1 Chronic obstructive pulmonary disease with (acute) exacerbation (principal); I11.0 Hypertensive heart disease with heart failure; I50.9 Heart failure, unspecified; E03.9 Hypothyroidism, unspecified; E78.5 Hyperlipidemia, unspecified; F17.210 Nicotine dependence, cigarettes, uncomplicated; I25.2 Old myocardial infarction; I48.91 Unspecified atrial fibrillation; I50.23 Acute on chronic systolic (congestive) heart failure; J96.20 Acute and chronic respiratory failure, unspecified whether with hypoxia or hypercapnia; Z95.810 Presence of automatic (implantable) cardiac defibrillator; Z98.61 Coronary angioplasty status
CPT/HCPCS: 36415; 71045; 80053; 83605; 83880; 84484; 85025; 94640; 96365; 96375; 99291; J2919